=== PATIENT | female | born 1995 | race African-American/Black ===

== ENCOUNTER 2019-01-28 16:23 | Inpatient (IN) ==
[2019-01-28] MEDS ORDERED: SODIUM CHLORIDE 0.9% 1000ML 2,000 ML IV ONE (17:14)
[2019-01-28 17:27] LABS: Basophils # (auto) 0.03 K/uL (0-0.2); Basophils % (auto) 0.5 %; Eosinophils # (auto) 0.13 K/uL (0-0.5); Eosinophils % (auto) 2.1 %; Hematocrit (blood only) 34.2 % (37-47); Hemoglobin 11.1 g/dL (12.0-16.0); Immature Granulocytes # (auto) 0.01 K/uL (0.00-0.02); Immature Granulocytes % (auto) 0.2 %; Lymphocytes # (auto) 1.87 K/uL (1.2-3.4); Lymphocytes % (auto) 29.5 %; Mean Corpuscular Hemoglobin 26.4 pg (25-34); Mean Corpuscular Hgb Conc 32.5 g/dL (32-36); Mean Corpuscular Volume 81.2 fL (80-100); Mean Platelet Volume 11.1 fL (7.4-10.4); Monocytes # (auto) 0.41 K/uL (0.11-0.59); Monocytes % (auto) 6.5 %; Neutrophils # (auto) 3.88 K/uL (1.4-6.5); Neutrophils % (auto) 61.2 %; Platelet Count 283 K/uL (130-400); RDW Coefficient of Variation 13.2 % (11.5-14.5); RDW Standard Deviation 39.8 fL (36.4-46.3); Red Blood Count 4.21 M/uL (4.2-5.4); White Blood Count 6.33 K/uL (4.8-10.8)
[2019-01-28] MEDS ORDERED: LORazepam 2 MG/4 ML VIAL ONE (17:39)
--- NOTE | 2019-01-28 17:41 | XRay Report ---
XR chest 1V portable HISTORY: 23 years-old Female Chest Pain acute atypical chest pain COMPARISON: Chest radiograph 12/30/2018 TECHNIQUE: Portable AP view of the chest FINDINGS: Cardiomediastinal and hilar silhouettes are within normal limits. Blunting of the right costophrenic angle may be secondary to atelectasis. No pneumothorax, pleural effusion, focal airspace consolidatio n or overt pulmonary edema. Bones of the chest appear grossly intact. IMPRESSION: No acute process. The above report was generated using voice recognition software. It may contain grammatical, syntax o r spelling errors. Electronically signed by: Hector Rios M.D. 01/28/2019 5:40 PM
[2019-01-28] MEDS ORDERED: levETIRAcetam 1,500 MG in DEXTROSE 5% 100 ML IV STA (17:42)
[2019-01-28 17:46] LABS: Pregnancy Test, Serum Negative (Negative)
[2019-01-28 17:51] LABS: Alanine Aminotransferase 16 U/L (12-78); Albumin Level 3.6 gm/dl (3.4-5.0); Aspartate Aminotransferase 10 U/L (15-37); BUN Creatinine Ratio 15.3 (10-20); Bilirubin Direct < 0.1 mg/dl (0-0.2); Blood Urea Nitrogen 10 mg/dl (7-18); Carbon Dioxide 29 mmol/L (21-32); Chloride 107 mmol/L (98-107); Est GFR (Non-African American) 125.1; Glucose 88 mg/dl (70-99); Lipase 86 U/L (73-393); Magnesium 1.9 mg/dl (1.8-2.4); Potassium 4.2 mmol/L (3.5-5.1); Sodium 139 mmol/L (136-145)
[2019-01-28 18:00] LABS: Albumin Globulin Ratio 0.9 (0.9-2); Alkaline Phosphatase 76 U/L (45-117); Bilirubin,Total 0.3 mg/dl (0.2-1); Globulin 3.8 gm/dl (2.5-4.0); Phosphorus 3.7 mg/dl (2.5-4.9); Thyroid Stimulating Hormone 0.876 uIu/ml (0.300-4.500); Total Protein 7.4 gm/dl (6.4-8.2); Troponin I < 0.015 ng/ml (0-0.045)
--- NOTE | 2019-01-28 19:19 | Emergency Department Note ---
Entered by Elvi Jaime acting as a scribe for Jack Graham MD History of Present Illness General Chief complaint: Seizure Stated complaint: SEIZURE Time Seen by Provider: 01/28/19 16:54 Source: patient and EMS History of Present Illness Onset (ago): minute(s) (prior to arrival) Location: head (general) Pain Consistency: + other (episode ) Maximum Pain Intensity: 0 Quality: + other (seizure) Associated symptoms: + denies other symptoms (diarrhea, lost weight) and + cough; no diaphoresis and no fever/chills The patient is a 23 year old female who presents to the Emergency Room with complaints of an episode of a seizure that occurred just prior to arrival. She reports feeling an aura while crossing the street near her apartment, but notes the seizure occurred inside her apartment. EMS reports the seizure lasted approximately 4-5 minutes according to a witness. The patient reports she was diagnosed with epilepsy last year. She reports a recent change in her medication from Keppra to oxcarbazepine a few weeks ago. The patient states she would originally experience 1-2 seizures per month, but notes that number has increased to 1 seizure per week since starting the new medication. She notes she has not spoken to her neurologist Dr. Forrest about the increase in frequency of her seizures. She notes she has an appointment later this month. The patient reports a cough. She denies a fever, diarrhea, sweating at night, and lost weight. She denies any sick contacts. She notes her last normal menstrual cycle occurred a little over a month ago. The patient reports a history of TB. She states she is from [facility]. *Patient had a negative CT head and negative chest x-ray on 12/30/2018. Home Medications Home Medications Medication Instructions Recorded Confirmed Type folic acid 1 mg PO BID 12/30/18 12/30/18 History oxcarbazepine See Rx Instructions .ROUTE .COMPLEX 12/30/18 12/30/18 History Allergies Allergy/AdvReac Type Severity Reaction Status Date / Time No Known Allergies Allergy Verified 12/30/18 18:37 Past Med/Surg History Medical History Asthma Seizures Depression Exposure to TB Surgical History No pertinent past surgical history Family History Other No pertinent family history Social History Preferred Language: Estonian Communication Ability: Effective Looper Operator Required: No Beliefs That Will Affect Care: None Current Living Situation: Alone Current Living Situation Comment: student/apartment Feels Safe at Home: Yes Safety Concerns: Feels Safe At This Time Smoking Status: Never smoker Hx Alcohol Use: No Hx Substance Use: No Review of Systems See HPI for pertinent positives & negatives. and A total of 10 systems reviewed and were otherwise negative Physical Exam Vital Signs Vital Signs - 24 hr 01/28/19 16:28 01/28/19 16:34 01/28/19 16:35 Temperature 36.7 C Temperature Source Oral Sepsis Recent Fever Within 48 Hours No Sepsis Action Taken by Nursing No Action Required Pulse Rate 75 73 74 Pulse Rate from SpO2 Sensor 75 73 Pulse Rhythm Regular Pulse Strength Normal Respiratory Rate 28 H 16 22 Respiratory Effort / Characteristics Non-Labored Respiratory Depth Normal Respiratory Pattern Regular Blood Pressure 132/93 132/93 Blood Pressure Mean 106 106 Blood Pressure Position Lying Pulse Oximetry 100 100 100 Oxygen Delivery Method Room Air 01/28/19 16:40 01/28/19 16:50 01/28/19 17:01 Temperature Temperature Source Sepsis Recent Fever Within 48 Hours Sepsis Action Taken by Nursing Pulse Rate 73 74 74 Pulse Rate from SpO2 Sensor 72 74 Pulse Rhythm Pulse Strength Respiratory Rate 17 19 16 Respiratory Effort / Characteristics Respiratory Depth Respiratory Pattern Blood Pressure Blood Pressure Mean Blood Pressure Position Pulse Oximetry 100 100 Oxygen Delivery Method 01/28/19 17:10 01/28/19 17:20 01/28/19 17:31 Temperature Temperature Source Sepsis Recent Fever Within 48 Hours Sepsis Action Taken by Nursing Pulse Rate 84 71 74 Pulse Rate from SpO2 Sensor Pulse Rhythm Pulse Strength Respiratory Rate 20 14 15 Respiratory Effort / Characteristics Respiratory Depth Respiratory Pattern Blood Pressure Blood Pressure Mean Blood Pressure Position Pulse Oximetry Oxygen Delivery Method 01/28/19 17:40 01/28/19 17:50 01/28/19 18:01 Temperature Temperature Source Sepsis Recent Fever Within 48 Hours Sepsis Action Taken by Nursing Pulse Rate 72 72 71 Pulse Rate from SpO2 Sensor Pulse Rhythm Pulse Strength Respiratory Rate 17 14 13 Respiratory Effort / Characteristics Respiratory Depth Respiratory Pattern Blood Pressure Blood Pressure Mean Blood Pressure Position Pulse Oximetry Oxygen Delivery Method 01/28/19 18:10 01/28/19 18:20 01/28/19 18:31 Temperature Temperature Source Sepsis Recent Fever Within 48 Hours Sepsis Action Taken by Nursing Pulse Rate 74 73 66 Pulse Rate from SpO2 Sensor 73 73 67 Pulse Rhythm Pulse Strength Respiratory Rate 13 14 12 Respiratory Effort / Characteristics Respiratory Depth Respiratory Pattern Blood Pressure Blood Pressure Mean Blood Pressure Position Pulse Oximetry 100 100 100 Oxygen Delivery Method GENERAL: Drowsy but alert and oriented, fatigued-appearing, in no distress HENT: Normocephalic, atraumatic. Oropharynx with dry mucous membranes and otherwise unremarkable. EYES: Normal conjunctiva. Sclera non-icteric. EOMI. No nystamgus. PEARRL. NECK: Supple. No nuchal rigidity. FROM. No JVD. RESPIRATORY: CTAB. CARDIAC: Regular rate, normal rhythm. Extremities warm and well perfused. Pulses equal. ABDOMEN: Soft, non-distended. No tenderness to palpation. No rebound or guarding. No masses. RECTAL: Deferred. MUSCULOSKELETAL: Chest examination reveals no tenderness. The back is sym metrical on inspection without obvious abnormality. There is no CVA tenderness to palpation. No joint edema. LOWER EXTREMITIES: Calves are equal size bilaterally and non-tender. No edema. No discoloration. NEURO: Normal sensorium. No sensory or motor deficits noted. No clonus. normal reflexes. Cerebellar function intact, including finger to nose, alternating palms, heel to vivas. 5/5 strength and SILT x4 extremities. SKIN: No rash or jaundice noted. Course 1700: Past medical records reviewed. The patient was evaluated in room A09. A complete history and physical exam was performed. 1750: The patient had another seizure. 1800: Upon reevaluation, I discussed findings and results with the patient. She verbalized agreement of the treatment plan. I spoke with Dr. Marquez of the [facility] Hospitalist Service. The patient will be evaluated for further management and care. Administered Medications Lactated Ringer's (Lr) 1,000 mls @ 50 mls/hr IV .Q20H TERRANCE Stop: 02/27/19 19:58 Last Admin: 01/28/19 20:12 Dose: 50 mls/hr Documented by: [id number] Discontinued Medications Sodium Chloride (Nss 1000ml) 2,000 mls @ 999 mls/hr IV .Q2H1M ONE Stop: 01/28/19 19:14 Last Infusion: 01/28/19 20:48 Dose: 0 mls/hr Documented by: [id number] Admin: 01/28/19 18:15 Dose: 999 mls/hr Documented by: [id number] Levetiracetam 1,500 mg/ (Dextrose) 115 mls @ 440 mls/hr IV NOW STA Stop: 01/28/19 17:56 Last Infusion: 01/28/19 18:32 Dose: 0 mls/hr Documented by: [id number] Admin: 01/28/19 18:15 Dose: 440 mls/hr Documented by: [id number] Lorazepam (Ativan) Confirm Administered Dose 2 mg .ROUTE .STK-MED ONE Stop: 01/28/19 17:40 Last Admin: 01/28/19 17:56 Dose: 1 mg Documented by: [id number] Medical Decision Making Differential Diagnosis Differential diagnosis includes etiologies such as infection, hypoglycemia, electrolyte abnormalities, cardiac sources, intracerebral event, trauma, toxicologic, neurologic, as well as others were entertained. Medical Records Attestation: I reviewed the patient's medical records. Home Medications Current Medication List: was personally reviewed by me Laboratory Data Attestation: I reviewed the patient's lab results. Result diagrams: 01/28/19 17:04 01/28/19 17:04 Lab Results 01/28/19 01/28/19 01/28/19 Range/Units 17:04 17:04 17:04 WBC 6.33 (4.8-10.8) K/uL RBC 4.21 (4.2-5.4) M/uL Hgb 11.1 L (12.0-16.0) g/dL Hct 34.2 L (37-47) % MCV 81.2 (80-100) fL MCH 26.4 (25-34) pg MCHC 32.5 (32-36) g/dL RDW Std Deviation 39.8 (36.4-46.3) fL RDW Coeff of [place] 13.2 (11.5-14.5) % Plt Count 283 (130-400) K/uL MPV 11.1 H (7.4-10.4) fL Immature Gran % (Auto) 0.2 % Neut % (Auto) 61.2 % Lymph % (Auto) 29.5 % [place] % (Auto) 6.5 % Eos % (Auto) 2.1 % Baso % (Auto) 0.5 % Immature Gran # (Auto) 0.01 (0.00-0.02) K/uL Neut # (Auto) 3.88 (1.4-6.5) K/uL Lymph # (Auto) 1.87 (1.2-3.4) K/uL [place] # (Auto) 0.41 (0.11-0.59) K/uL Eos # (Auto) 0.13 (0-0.5) K/uL Baso # (Auto) 0.03 (0-0.2) K/uL Sodium 139 (136-145) mmol/L Potassium 4.2 (3.5-5.1) mmol/L Chloride 107 (98-107) mmol/L Carbon Dioxide 29 (21-32) mmol/L Anion Gap 3.0 (3-11) BUN 10 (7-18) mg/dl Creatinine 0.65 (0.6-1.2) mg/dl Est Cr Clr Drug Dosing 138.0 ml/min Est GFR ( Amer) 145.0 Est GFR (Non-Af Amer) 125.1 BUN/Creatinine Ratio 15.3 (10-20) Glucose 88 (70-99) mg/dl Calcium 9.0 (8.5-10.1) mg/dl Phosphorus 3.7 (2.5-4.9) mg/dl Magnesium 1.9 (1.8-2.4) mg/dl Total Bilirubin 0.3 (0.2-1) mg/dl Direct Bilirubin < 0.1 (0-0.2) mg/dl AST 10 L (15-37) U/L ALT 16 (12-78) U/L Alkaline Phosphatase 76 (45-117) U/L Ammonia (11-32) umol/L Troponin I < 0.015 (0-0.045) ng/ml Total Protein 7.4 (6.4-8.2) gm/dl Albumin 3.6 (3.4-5.0) gm/dl Globulin 3.8 (2.5-4.0) gm/dl Albumin/Globulin Ratio 0.9 (0.9-2) Lipase 86 (73-393) U/L TSH 0.876 (0.300-4.500) uIu/ml HCG, Qual Negative (Negative) 01/28/19 Range/Units 17:54 WBC (4.8-10.8) K/uL RBC (4.2-5.4) M/uL Hgb (12.0-16.0) g/dL Hct (37-47) % MCV (80-100) fL MCH (25-34) pg MCHC (32-36) g/dL RDW Std Deviation (36.4-46.3) fL RDW Coeff of [place] (11.5-14.5) % Plt Count (130-400) K/uL MPV (7.4-10.4) fL Immature Gran % (Auto) % Neut % (Auto) % Lymph % (Auto) % [place] % (Auto) % Eos % (Auto) % Baso % (Auto) % Immature Gran # (Auto) (0.00-0.02) K/uL Neut # (Auto) (1.4-6.5) K/uL Lymph # (Auto) (1.2-3.4) K/uL [place] # (Auto) (0.11-0.59) K/uL Eos # (Auto) (0-0.5) K/uL Baso # (Auto) (0-0.2) K/uL Sodium (136-145) mmol/L Potassium (3.5-5.1) mmol/L Chloride (98-107) mmol/L Carbon Dioxide (21-32) mmol/L Anion Gap (3-11) BUN (7-18) mg/dl Creatinine (0.6-1.2) mg/dl Est Cr Clr Drug Dosing ml/min Est GFR ( Amer) Est GFR (Non-Af Amer) BUN/Creatinine Ratio (10-20) Glucose (70-99) mg/dl Calcium (8.5-10.1) mg/dl Phosphorus (2.5-4.9) mg/dl Magnesium (1.8-2.4) mg/dl Total Bilirubin (0.2-1) mg/dl Direct Bilirubin (0-0.2) mg/dl AST (15-37) U/L ALT (12-78) U/L Alkaline Phosphatase (45-117) U/L Ammonia 30.0 (11-32) umol/L Troponin I (0-0.045) ng/ml Total Protein (6.4-8.2) gm/dl Albumin (3.4-5.0) gm/dl Globulin (2.5-4.0) gm/dl Albumin/Globulin Ratio (0.9-2) Lipase (73-393) U/L TSH (0.300-4.500) uIu/ml HCG, Qual (Negative) Imaging Data Radiologist's Impression: Radiology results as stated below per my review and the radiologist's interpretation: XR chest 1V portable HISTORY: 23 years-old Female Chest Pain acute atypical chest pain COMPARISON: Chest radiograph 12/30/2018 TECHNIQUE: Portable AP view of the chest FINDINGS: Cardiomediastinal and hilar silhouettes are within normal limits. Blunting of the right costophrenic angle may be secondary to atelectasis. No pneumothorax, pleural effusion, focal airspace consolidation or overt pulmonary edema. Bones of the chest appear grossly intact. IMPRESSION: No acute process. The above report was generated using voice recognition software. It may contain grammatical, syntax or spelling errors. Electronically signed by: Hector Rios M.D. 01/28/2019 5:40 PM ECG Data Attestation: I personally reviewed and interpreted this ECG as follows: Indication: + other (seizure) Rate (beats per minute): 72 Rhythm: + normal sinus ECG [place]: + Normal ECG ST segments: no ST depression and no ST elevation ECG Findings: + Other (QTC 429) Blood Pressure Blood Pressure Findings: Elevated blood pressure Blood Pressure Disposition: further management by hospitalist MDM Narrative The patient is a pleasant 23-year-old woman from [facility], international student, with a past medical history of seizures diagnosed 1 year ago followed by [facility] neurology, Dr. Lacy, currently on Trileptal who presents emergency department with seizure episode today in the setting of having increasing frequency of seizures over the past month per hpi. The patient reports increase in seizures correlate to switching her medications from Keppra and Lamictal to Trileptal. She reports stopping Keppra and Lamictal abruptuly while initiating Trileptal. However, review of patient's November neurology visit does describe a plan to maintain Keppra until the patient is therapeutic on Trileptal which would take approximately a month and then wean Keppra going forward. Thus, it certainly possible that the patient's increasing for seizure frequency could be related to this. In the emergency department the patient did have a repeat seizure and thus was given Ativan followed by load of Keppra. Lab work was unremarkable. WBC and platelets within normal limits. H/H 11.1/34.2 similar to prior prior values. Chemistry without acidosis. Electrolytes unremarkable. Troponin negative. EKG without overt acute ischemia. Given the patient had a negative CT of her head on her prior ED visit this month no indica tion for repeat brain imaging at this time. Considering the patient's recurrent seizures reasonable to admit the patient for further management. Patient is agreeable with this. Case was discussed with Dr. Marquez, [facility] hospitalist, who evaluate the patient for admission. Impression & Plan Recurrent seizures, On antiepileptic therapy Critical Care Time Critical Care Time: Yes Total Critical Care Time: 45 I have personally spent greater than 45 minutes of critical care time in the direct management of this patient. This includes bedside care, interpretation of diagnostic studies, and testing, discussion with consultants, patient, and family members, and other required patient management activities. This 45 minutes is in excess of all separately billable procedures. Discharge Plan Visit Data *Final* Discharge Date/Time: 01/28/19 19:58 Chief Complaint: Seizure Stated Complaint: SEIZURE ED Provider: Jack Graham Discharge Problem: Recurrent seizures, On antiepileptic therapy Patient Disposition: Admitted As Inpatient Discharge Instructions Interventions: ED Discharge Assessment Last Done: 01/28/19 19:58 The scribe's documentation has been prepared under my direction and personally reviewed by me in its entirety. I confirm that the note above accurately reflects all work, treatment, procedures, and medical decision making performed by me.
[2019-01-28] MEDS ORDERED: LORazepam 1 MG/2 ML VIAL IV PRN (19:59)
[2019-01-28] MEDS ORDERED: LACTATED RINGER'S 1,000 ML IV SCH (19:59)
[2019-01-28] MEDS ORDERED: ALBUT/IPRATROP 3MG/0.5MG NEB 3 ML VIAL NEB PRN (19:59)
[2019-01-28] MEDS ORDERED: ONDANSETRON INJ 2 MG/ML 2 ML VIAL IV PRN (19:59)
--- NOTE | 2019-01-28 20:05 | History & Physical Report ---
Date of Service January 28, 2019 Assessment & Plan (1) Seizures: As per HPI, may have stopped her Keppra prematurely as she was meant to transition to oxcarbazepine. Also a little interesting that it appears her last fill date was 12/19/2018. Will need to confirm with Paigemaryanne tomorrow. - Continue Keppra - Loaded with 1,500 mg in the ED - Will give Keppra 1,000mg IV BID - Ativan PRN - Seizure precauctions - Neurology consulted - Saw Dr. Hurley in the office last month (2) Depression: Per notes, was having issues with depression and passive SI in 10/2018, possibly due to seizure medications. - When the patient is more awake/arousable, will discuss whether this is contributing to her medication adherence. (3) Asthma: Breathing comfortably without wheezes on exam. - DuoNebs PRN (4) DVT prophylaxis: SCDs - Low DVT risk per admission calculator History of Present Illness Primary Care Provider: [facility] 23yo F w/ hx of seizure d/o, asthma, and depression who presents after having a witnessed tonic-clonic seizure at her apartment. History is entirely from the chart as the patient is lethargic and can only state her name and deny any pain. She otherwise falls back asleep or just looks at me. Per prior notes, Ms. Brown recently returned to [facility] from her home in [facility]. She was seen in the ED in 10/2018 for feelings of depression and passive SI. She had spoke with her insurance company who recommended going to the ED. In the ED, she was recommended to decrease her Keppra from 3000 mg PO daily to a lower dose (though on discharge it looks like it as listed as 1500 mg PO BID) and add lamotrigine 25 mg PO BID. She was given a 30-day supply and two refills. She represented in 11/2018 (about 2 weeks later) reporting that she was running out of her lamotrigine and needed a refill. She was shown that she had multiple refills left, and this was transferred to the [facility]. Per ED notes, she saw Dr. Hurley in 11/2018 with the plan of switching from Keppra & lamotrigine to oxcarbazepine; however, it appears she may have inadvertantly stopped her Keppra too early. In the ED, she had a repeat seizure and was given another dose of Ativan and loaded with Keppra. Allergies Allergy/AdvReac Type Severity Reaction Status Date / Time No Known Allergies Allergy Verified 12/30/18 18:37 Home Medications Home Medications Medication Instructions Recorded Confirmed Type folic acid 1 mg PO BID 12/30/18 12/30/18 History oxcarbazepine See Rx Instructions .ROUTE .COMPLEX 12/30/18 12/30/18 History Past Med/Surg History Medical History Asthma Seizures Depression Exposure to TB Surgical History No pertinent past surgical history Family History Other No pertinent family history Social History Preferred Language: Amharic Feels Safe at Home: Yes Smoking Status: Never smoker Review of Systems Review of Systems: Unobtainable due to cognitive status Physical Exam Constitutional: + acute distress, + ill appearing and + lethargic Eyes: EOM intact bilaterally; no conjunctival abnormality ENMT: external ear and nose normal, oropharynx normal Neck: trachea midline, no thyromegaly normal visual inspection Respiratory: normal respiratory effort, lungs clear to auscultation no respiratory distress Cardiovascular: RRR, no murmur, no edema Gastrointestinal (Abdomen): Inspection/Auscultation: abdomen normal to inspection; abdomen not distended Musculoskeletal: no cyanosis or clubbing, extremities motor strength 5/5 Skin: no rashes, warm and dry Neurologic: moves all extremities; + not awake Psychiatric: Orientation: cooperative; + not alert and + not oriented to person Eye Contact: + poor eye contact Results & Data Vital Signs (Past 12 Hours) Vital Signs Temp Pulse Resp BP Pulse Ox 01/28/19 19:41 118/62 01/28/19 19:30 76 14 100 01/28/19 19:20 77 14 100 01/28/19 19:11 73 13 100 01/28/19 19:00 76 16 100 01/28/19 18:50 70 14 100 01/28/19 18:41 70 12 100 01/28/19 18:31 66 12 100 01/28/19 18:20 73 14 100 01/28/19 18:10 74 13 100 01/28/19 18:01 71 13 01/28/19 17:50 72 14 01/28/19 17:40 72 17 01/28/19 17:31 74 15 01/28/19 17:20 71 14 01/28/19 17:10 84 20 01/28/19 17:01 74 16 01/28/19 16:50 74 19 100 01/28/19 16:40 73 17 100 01/28/19 16:35 74 22 100 01/28/19 16:34 36.7 C 73 16 132/93 100 01/28/19 16:28 75 28 H 132/93 100 PG Care Time/CCT Total # of Minutes Spent Total Time Spent with Patient: Total time spent is greater than 50% in coordination of care (as documented) at patient's floor/unit and/or counseling patient:
[2019-01-28 20:16] LABS: Appearance Urine Cloudy (Clear); Bacteria Urine Automated Negative (Negative); Bilirubin Urine Negative (Negative); Blood Urine Negative (Negative); Cast Urine Automated 0 /lpf (0-5); Color Urine Yellow; Epithelial Cell Urine Auto >30 /lpf (0-5); Glucose Urine UA Negative (Negative); Ketones Urine Negative (Negative); Leukocyte Esterase Urine Negative (Negative); Nitrite Urine Negative (Negative); Protein Urine Negative (Negative); RBC Urine Automated 0-4 /hpf (0-4); Specific Gravity Urine 1.026 (1.000-1.030); Urobilinogen Urine Negative (Negative); pH Urine 7.5 (4.5-7.5)
[2019-01-29 04:36] LABS: Hematocrit (blood only) 32.9 % (37-47); Hemoglobin 10.3 g/dL (12.0-16.0); Mean Corpuscular Hemoglobin 25.2 pg (25-34); Mean Corpuscular Hgb Conc 31.3 g/dL (32-36); Mean Corpuscular Volume 80.6 fL (80-100); Mean Platelet Volume 11.1 fL (7.4-10.4); Platelet Count 241 K/uL (130-400); RDW Standard Deviation 38.6 fL (36.4-46.3); Red Blood Count 4.08 M/uL (4.2-5.4); White Blood Count 4.65 K/uL (4.8-10.8)
[2019-01-29 04:52] LABS: Alanine Aminotransferase 13 U/L (12-78); Albumin Level 3.1 gm/dl (3.4-5.0); Aspartate Aminotransferase 10 U/L (15-37); BUN Creatinine Ratio 11.2 (10-20); Blood Urea Nitrogen 6 mg/dl (7-18); Calcium 8.4 mg/dl (8.5-10.1); Carbon Dioxide 24 mmol/L (21-32); Chloride 109 mmol/L (98-107); Creatinine Clr Calc Pharmacy 153.3 ml/min; Est GFR (African American) > 150.0; Est GFR (Non-African American) 129.9; Glucose 78 mg/dl (70-99); Magnesium 1.7 mg/dl (1.8-2.4); Potassium 3.6 mmol/L (3.5-5.1); Sodium 140 mmol/L (136-145)
[2019-01-29 04:55] LABS: Albumin Globulin Ratio 0.9 (0.9-2); Alkaline Phosphatase 69 U/L (45-117); Bilirubin,Total 0.4 mg/dl (0.2-1); Globulin 3.3 gm/dl (2.5-4.0); Phosphorus 3.3 mg/dl (2.5-4.9); Total Protein 6.4 gm/dl (6.4-8.2)
[2019-01-29] MEDS: MAGNESIUM SULFATE / D5W 1 GM/100 ML BAG IV SCH ×2 (07:43→08:49)
--- NOTE | 2019-01-29 09:17 | Neurology Consultation ---
Date of Consultation January 29, 2019 Assessment & Plan (1) Seizures: (2) Seizure-like activity: A 23 year old woman admitted with spells of seizure like activity on Trileptal 600 mg BID although concern for possible non compliance. Semiology of events concerning for nonepileptic episodic events ("the world is closing in", shortness of breath, long duration, preserved consciousness during some of the events). I reviewed her recent routine EEG performed on 01/25/2019) which was normal. No epileptiform discharges were seen. Recommend she continue home Trileptal for now, 600 mg BID. Stop Keppra due to AE (lethargy, mood changes). Recommend patient follow up with Dr. Forrest for ambulatory EEG or EMU admission for spell capture. History of Present Illness Reason for Consultation: Seizure Attending Physician: Mark Segura MD History of Present Illness A 24 year old woman admitted for seizure. She recently was seen and evaluated by Dr. Forrest in Neurology clinic. She was on Keppra 1500 mg BID but reports she ran out of the script. She reports taking Trileptal but not clear on dose or concern for compliance. States she has been having multiple symptoms including cough, chest pain, weakness, and forgetfulness. She describes to seizure type including one where she will not lose conciousness and both arms will shake and one where she has an extended aura involving her right arm which then evolves to being "swallowed in darkness" and she loses concioussness and is amnestic to the event but has incontinence and tongue biting. Occurs whenever but more in morning or when falling asleep. She reports stress at school. Lives with room mates. Per Dr. 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 Beginning in October of 2016 she began having spells where she felt like she had low blood she would feel a funny feeling of weakness in the right arm and then both legs would feel weak like she was falling. This would last approximately 2 minutes. It was recurrence over time in 2018 she had a period of time in which she was somewhat sleep deprived she was laying in her bed felt her right arm stiffened up then she could in yell or here her own voice. Everything became dark. She lost consciousness bit her tongue and was confused thereafter no one was there to witness the episode. She was seen in the emergency room I believe at [place] and then discharged an MRI and an EEG were performed the patient's understanding is that these were normal and she was started on Keppra by a neurologist from the [facility] this dose was gradually increased until she was about on 3000 mg a day she indicates that she had many generalized seizures. And many of partial complex seizure. The the partial complex seizures were occurring approximately 1 time a month. Her last noted spell was in I believe September where she was awake and her arms and legs turned in lasted 2 minutes. In October she was contacted by [employer] and through dose a survey was found to have on healthy thoughts she felt inadequate and passively suicidal but not actively suicidal she was not hallucinating and she felt mildly depressed she had never had these feelings previously prior to Keppra she did feel have grew a grief reaction when her mother in approximately 2013. She went to the emergency room and Dr. high barroso recommended reduction in the dose of Keppra and the addition of Lamictal. She took this combination for about 2-3 weeks and was having spasms in her arm either right or left that resolved with discontinuing it. She resumed the old dose of Keppra. She notes ongoing issues with memory. When the patient was seen in [facility] Emergency Room her labs were remarkable only for a white count of 4 and otherwise noncontributory She has a history of asthma no history of kidney stones no history of head injury unremarkable milestones no history of meningitis or encephalitis no family history of seizure. Allergies Allergy/AdvReac Type Severity Reaction Status Date / Time No Known Allergies Allergy Verified 12/30/18 18:37 Home Medications Home Medications Medication Instructions Recorded Confirmed Type folic acid 1 mg PO BID 12/30/18 12/30/18 History oxcarbazepine See Rx Instructions .ROUTE .COMPLEX 12/30/18 12/30/18 History oxcarbazepine 600 mg PO BID #60 tab 01/29/19 Rx Patient History Medical History Asthma Seizures Depression Exposure to TB Surgical History No pertinent past surgical history Family History Other No pertinent family history Social History Preferred Language: Turkish Communication Ability: Effective Edi Consultant Required: No Beliefs That Will Affect Care: None Current Living Situation: Alone Current Living Situation Comment: student/apartment Feels Safe at Home: Yes Safety Concerns: Feels Safe At This Time Smoking Status: Never smoker Hx Alcohol Use: No Hx Substance Use: No Physical Exam Physical Exam: EXAM: Constitutional: appear stated age, no distress Head and Face: normocephalic and atraumatic Eyes: normal lids, normal conjunctiva Neck: supple Respiratory: normal effort Cardiovascular: ormal pulses Abdomen: non distended Skin: no rashes, lesions, or ulcers noted Psychiatric: depressed appearing, poor eye contact NEUROLOGIC EXAMINATION: Appearance: no acute distress Orientation: awake, alert and oriented x 3 Mental Status: alert Memory: Poor Attention: decreased Knowledge: Poor Language: no aphasia Speech: soft Cranial Nerves: CN 2 - no visual defect on confrontation and pupils round, equal, reactive to light CN 3, 4, 6 - extra-ocular movements intact and no nystagmus CN 5 - facial sensation intact CN 7 - no facial asymmetry CN 8 - intact hearing CN 9, 10 - palate symmetric CN 11 - good shoulder shrug CN 12 - tongue midline, no abrasion on tongue Gait: deferred Coordination: no ataxia with finger to nose testing on left, no tremor Sensory: intact and symmetric to light touch Muscle Tone: normal Muscle exam: 5/5 throughout Reflexes: Brisk at the knees, toes down going Results & Data Vital Signs (Past 12 Hours) Vital Signs Temp Pulse Pulse Resp BP BP Pulse Ox 01/29/19 07:40 36.3 C L 101 H 18 127/84 96 01/29/19 07:35 91 H 01/29/19 04:00 36.5 C 80 13 101/52 L 97 01/29/19 03:50 78 16 01/29/19 03:40 80 16 01/29/19 03:30 81 16 01/29/19 03:20 77 15 01/29/19 03:10 81 15 01/29/19 03:01 81 15 112/50 L 01/29/19 03:00 82 15 01/29/19 02:50 76 15 01/29/19 02:40 79 15 01/29/19 02:30 78 15 01/29/19 02:20 81 17 01/29/19 02:10 98 H 15 01/29/19 02:00 84 17 112/58 L 01/29/19 01:50 EST 81 16 01/29/19 01:40 EST 77 16 01/29/19 01:30 EST 84 18 01/29/19 01:20 EST 83 17 01/29/19 01:10 EST 83 17 01/29/19 01:00 EST 79 17 113/60 01/29/19 00:50 82 17 01/29/19 00:40 79 20 01/29/19 00:30 74 17 01/29/19 00:20 82 15 01/29/19 00:11 77 15 128/62 01/29/19 00:10 84 18 01/29/19 00:00 36.7 C 84 16 126/62 97 01/28/19 23:50 81 16 01/28/19 23:40 84 17 01/28/19 23:30 81 16 01/28/19 23:20 76 16 01/28/19 23:10 80 16 01/28/19 23:00 85 16 01/28/19 22:50 78 16 01/28/19 22:40 75 16 01/28/19 22:30 77 16 01/28/19 22:[address] Head non contrast: No acute intracranial abnormality.
--- NOTE | 2019-01-29 11:44 | Hospitalist Progress Note ---
Date of Service January 29, 2019 Assessment & Plan (1) Seizures: Per patient, she stopped her Keppra prematurely as she was meant to transition to oxcarbazepine. - I called [facility] pharmacy on 01/29 - She last picked up her oxcarbazepine on 12/19 and never filled her refill of Keppra that was sent in on 01/17. She does admit that she occasionally skips her morning dose of oxcarbazepine because it makes her tired and gives her hand cramps. - Continue Keppra 1,000mg IV BID - Ativan PRN - Seizure precautions - Neurology consulted - Will discuss with Dr. Strauss today (2) Depression: Per notes, was having issues with depression and passive SI in 10/2018, possibly due to seizure medications. - She reports no further passive SI and has improved mood off her Keppra. (3) Asthma: Breathing comfortably without wheezes on exam. Denies any shortness of breath today. - DuoNebs PRN (4) DVT prophylaxis: SCDs - Low DVT risk per admission calculator Subjective Doing much better today. Awake and alert and talking. No major issues. Reports no fevers/chills, chest pain, shortness of breath, abdominal pain, nausea, or vomiting. Physical Exam Constitutional: well nourished; no acute distress Eyes: EOM intact bilaterally; no conjunctival abnormality ENMT: external ear and nose normal, oropharynx normal Neck: trachea midline, no thyromegaly normal visual inspection Respiratory: normal respiratory effort, lungs clear to auscultation no respiratory distress Cardiovascular: RRR, no murmur, no edema Gastrointestinal (Abdomen): Inspection/Auscultation: abdomen normal to inspection; abdomen not distended Musculoskeletal: no cyanosis or clubbing, extremities motor strength 5/5 Skin: no rashes, warm and dry Neurologic: moves all extremities and awake Psychiatric: Orientation: alert, oriented to person and cooperative Results & Data Vital Signs (Past 12 Hours) Vital Signs Temp Pulse Pulse Resp BP BP Pulse Ox 01/29/19 07:40 36.3 C L 101 H 18 127/84 96 01/29/19 07:35 91 H 01/29/19 04:00 36.5 C 80 13 101/52 L 97 01/29/19 03:50 78 16 11/03/19 03:40 80 16 01/29/19 03:30 81 16 01/29/19 03:20 77 15 01/29/19 03:10 81 15 01/29/19 03:01 81 15 112/50 L 01/29/19 03:00 82 15 01/29/19 02:50 76 15 01/29/19 02:40 79 15 01/29/19 02:30 78 15 01/29/19 02:20 81 17 01/29/19 02:10 98 H 15 01/29/19 02:00 84 17 112/58 L 01/29/19 01:50 EST 81 16 01/29/19 01:40 EST 77 16 01/29/19 01:30 EST 84 18 01/29/19 01:20 EST 83 17 01/29/19 01:10 EST 83 17 01/29/19 01:00 EST 79 17 113/60 01/29/19 00:50 82 17 01/29/19 00:40 79 20 PG Care Time/CCT Total # of Minutes Spent Total Time Spent with Patient: Total time spent is greater than 50% in coordination of care (as documented) at patient's floor/unit and/or counseling patient:
--- NOTE | 2019-01-29 13:07 | Discharge Summary ---
Date of Service January 29, 2019 Admission HPI Per Admitting Provider 23yo F w/ hx of seizure d/o, asthma, and depression who presents after having a witnessed tonic-clonic seizure at her apartment. History is entirely from the chart as the patient is lethargic and can only state her name and deny any pain. She otherwise falls back asleep or just looks at me. Per prior notes, Ms. Brown recently returned to [facility] from her home in [place]. She was seen in the ED in 10/2018 for feelings of depression and passive SI. She had spoke with her insurance company who recommended going to the ED. In the ED, she was recommended to decrease her Keppra from 3000 mg PO daily to a lower dose (though on discharge it looks like it as listed as 1500 mg PO BID) and add lamotrigine 25 mg PO BID. She was given a 30-day supply and two refills. She represented in 11/2018 (about 2 weeks later) reporting that she was running out of her lamotrigine and needed a refill. She was shown that she had multiple refills left, and this was transferred to the [facility]. Per ED notes, she saw Dr. Hurley in 11/2018 with the plan of switching from Keppra & lamotrigine to oxcarbazepine; however, it appears she may have inadvertently stopped her Keppra too early. In the ED, she had a repeat seizure and was given another dose of Ativan and loaded with Keppra. Principal Diagnosis Seizure vs. pseudoseizure Discharge Exam Constitutional well nourished; no acute distress Eyes EOM intact bilaterally; no conjunctival abnormality ENMT external ear and nose normal, oropharynx normal Neck trachea midline, no thyromegaly normal visual inspection Respiratory normal respiratory effort, lungs clear to auscultation no respiratory distress Cardiovascular RRR, no murmur, no edema Gastrointestinal (Abdomen) Inspection/Auscultation: abdomen normal to inspection; abdomen not distended Musculoskeletal no cyanosis or clubbing, extremities motor strength 5/5 Skin no rashes, warm and dry Neurologic moves all extremities and awake Psychiatric Orientation: alert, oriented to person and cooperative Eye Contact: + poor eye contact Discharge Data Allergies Allergy/AdvReac Type Severity Reaction Status Date / Time No Known Allergies Allergy Verified 12/30/18 18:37 Consultations 01/28/19 17:52 ED Decision to Admit Stat 01/28/19 19:59 Consult Neurology Routine Hospital Course (1) Seizures: Per patient, she stopped her Keppra prematurely as she was meant to transition to oxcarbazepine. - I called [facility] pharmacy on 01/29 - She last picked up her oxcarbazepine on 12/19 and never filled her refill of Keppra that was sent in on 01/17. She does admit that she occasionally skips her morning dose of oxcarbazepine because it makes her tired and gives her hand cramps. - Neurology consulted - Discuss with Dr. Strauss - Her EEG shows some beta-wave activity, but no epileptiform discharges. Concern for possible pseudoseizure. As above, may also not be taking her medications. Will discharge on only oxcarbazepine. Dr. Forrest's office will reach out to her tomorrow to arrange ambulatory EEG monitoring. Will simplify medical regimen in the context of concern for trouble with adherence. (2) Depression: Per notes, was having issues with depression and passive SI in 10/2018, thought to be due to Keppra. - She reports no further passive SI and has improved mood off her Keppra. (3) Asthma: Breathing comfortably without wheezes on exam. Denies any shortness of breath today. - DuoNebs PRN (4) DVT prophylaxis: SCDs - Low DVT risk per admission calculator Total Time Total Time Spent Total Time Spent (In Minutes): 35 Discharge Plan Discharge Items Patient Disposition: Home - Self-Care Reason For Visit: SEIZURE Discharge Diagnosis: Seizure Activity: Resume your previous activity Non-emergency contact: Primary Care Provider and Neurologist Call non-emergency contact if: your symptoms worsen Follow-up/Referrals: Liliane Forrest MD [Physician] - (Please call Dr. Forrest's office tomorrow.) [facility] [Primary Care Provider] - Diet: Regular Addtl Attending Provider Instructions: You were admitted to the hospital with a possible seizure. The neurologist from [facility] saw you and felt that we need to simplify your medical regimen. The EEG done in the hospital did not show any seizure activity, but can miss it if you're not actively having a seizure when it is done. Dr. Forrest's office should call you tomorrow to set up ambulatory EEG monitoring and also help titrate your meds further. Please continue taking the oxcarbazepine at 600 mg two times per day until you speak with Dr. Forrest. I will give you a school excuse for the week until you are able to speak with her and make sure you are on a safe regimen for you. The script I sent into [facility] today is for 600 mg tablets. So you should only take 1 tablet in the morning and 1 tablet in the evening. Please note, the dose of each tablet is higher than your prior prescription, so you can take fewer pills. Pending Studies at Discharge: No Stand-Alone Forms: [employer] [facility] Happy Hour party supplies & rentals, Work/School Release (Inpt), Smoking Cessation Medications and DC Order Prescriptions: New oxcarbazepine 600 mg tablet 600 mg PO BID Qty: 60 RF: 0 Continued folic acid 1 mg tablet 1 mg PO BID RF: 0 Discontinued oxcarbazepine 300 mg tablet See Rx Instructions .ROUTE .COMPLEX RF: 0 Discharge Orders: Discharge Order (Routine); Ordered 01/29/19 Ordered By: Mark Segura Admission Data Admit Date/Time: 01/28/19 18:40 Attending Provider: Mark Segura Admit Provider: Mark Segura Primary Care Provider: [place] Other Providers: Dexter Marquez ; Sylvester Strauss
[2019-02-02 11:50] LABS: Lamictal(Lamotrigine) <0.5 mcg/mL (4.0-18.0); Levetiracetam Keppra < 1.0 mcg/mL (12.0-46.0)
== END 2019-01-29 14:02 | disposition home or self-care (01) | DRG 101 ==
LOC: ED 16:23 → 1E 18:40 → 2E 01-29 07:20

== ENCOUNTER 2019-09-14 20:48 | Inpatient (IN) ==
[2019-09-14] MEDS ORDERED: FAMOTIDINE 20MG IV PUSH 20 MG/5 ML SYR IV STA (21:41)
[2019-09-14] MEDS ORDERED: SODIUM CHLORIDE 0.9% 1000ML 1,000 ML IV SCH (21:45)
[2019-09-14 22:02] LABS: Appearance Urine Clear (Clear); Bilirubin Urine Negative (Negative); Blood Urine Negative (Negative); Color Urine Yellow; Glucose Urine UA Negative (Negative); Ketones Urine 1+ (Negative); Leukocyte Esterase Urine Negative (Negative); Nitrite Urine Negative (Negative); Protein Urine Negative (Negative); Specific Gravity Urine 1.012 (1.000-1.030); Urobilinogen Urine Negative (Negative)
[2019-09-14 22:10] LABS: Amphetamines+Metham, Urine Neg (Neg); Barbiturates, Urine Neg (Neg); Benzodiazepine, Urine Neg (Neg); Cocaine, Urine Neg (Neg); MDMA (Ecstacy), Urine Neg (Neg); Methadone, Urine Neg (Neg); Opiate, Urine Neg (Neg); Phencyclidine, Urine Neg (Neg)
[2019-09-14 22:34] LABS: Basophils # (auto) 0.03 K/uL (0-0.2); Basophils % (auto) 0.5 %; Eosinophils # (auto) 0.06 K/uL (0-0.5); Hematocrit (blood only) 33.3 % (37-47); Hemoglobin 10.8 g/dL (12.0-16.0); Immature Granulocytes # (auto) 0.01 K/uL (0.00-0.02); Immature Granulocytes % (auto) 0.2 %; Lymphocytes % (auto) 35.4 %; Mean Corpuscular Hemoglobin 25.8 pg (25-34); Mean Corpuscular Hgb Conc 32.4 g/dL (32-36); Mean Corpuscular Volume 79.7 fL (80-100); Monocytes # (auto) 0.38 K/uL (0.11-0.59); Monocytes % (auto) 6.4 %; Neutrophils # (auto) 3.35 K/uL (1.4-6.5); Neutrophils % (auto) 56.5 %; Platelet Count 280 K/uL (130-400); RDW Coefficient of Variation 12.2 % (11.5-14.5); RDW Standard Deviation 35.2 fL (36.4-46.3); Red Blood Count 4.18 M/uL (4.2-5.4); White Blood Count 5.93 K/uL (4.8-10.8)
[2019-09-14 22:40] LABS: Pregnancy Test, Urine Negative (Negative)
[2019-09-14 22:51] LABS: INR 1.1 (0.9-1.1); Prothrombin Time 11.5 Seconds (9.0-12.0)
[2019-09-14 22:55] LABS: Alanine Aminotransferase 14 U/L (12-78); Albumin Level 4.1 gm/dl (3.4-5.0); Aspartate Aminotransferase 10 U/L (15-37); BUN Creatinine Ratio 11.7 (10-20); Blood Urea Nitrogen 8 mg/dl (7-18); Calcium 9.5 mg/dl (8.5-10.1); Carbon Dioxide 22 mmol/L (21-32); Chloride 107 mmol/L (98-107); Creatinine Clr Calc Pharmacy 142.2 ml/min; Est GFR (Non-African American) 125.1; Glucose 79 mg/dl (70-99); Lipase 92 U/L (73-393); Potassium 3.9 mmol/L (3.5-5.1); Sodium 137 mmol/L (136-145)
[2019-09-14 23:04] LABS: Acetaminophen < 2 ug/ml (10-30); Salicylate < 1.7 mg/dl (2.8-20)
[2019-09-14 23:06] LABS: Alkaline Phosphatase 78 U/L (45-117); Bilirubin,Total 0.4 mg/dl (0.2-1); Globulin 4.2 gm/dl (2.5-4.0); Total Protein 8.3 gm/dl (6.4-8.2); Troponin I < 0.015 ng/ml (0-0.045)
--- NOTE | 2019-09-15 00:22 | Emergency Department Note ---
History of Present Illness General Chief complaint: Overdose (Intentional) Stated complaint: OVERDOSE ON MEDICATION Time Seen by Provider: 09/14/19 21:31 History of Present Illness This is a 23-year-old female presenting to the emergency department for evaluation after intentional overdose on 17 tablets of 200 mg ibuprofen and 10 tablets of 600 mg oxcarbazepine. The overdose occurred approximately 1 hour prior to arrival around 7:30 PM this evening. The patient has a history of mental health disease including anxiety and depression. She has felt worsening depression recently, and took the medication "to feel better". The patient has had recent suicidal ideation but denies plan. She denies that this was a suicide attempt tonight. The patient is experiencing epigastric abdominal discomfort. No vomiting or diarrhea. She denies chance of . Patient rates her current discomfort a 04/07. Home Medications Home Medications Medication Instructions Recorded Confirmed Type oxcarbazepine 600 mg PO BID #60 tab 01/29/19 09/14/19 Rx levetiracetam 500 mg tablet 1,500 mg PO BID tab 02/28/19 09/14/19 History ibuprofen [Advil] 400 mg PO Q6H PRN 09/14/19 09/14/19 History Allergies Allergy/AdvReac Type Severity Reaction Status Date / Time No Known Allergies Allergy Verified 09/14/19 21:44 paracetamol AdvReac Unknown sweats, Uncoded 09/14/19 21:44 chills Past Med/Surg History Medical History Asthma Depression Exposure to TB Seizures Surgical History No pertinent past surgical history Social History Preferred Language: Spanish Communication Ability: Effective Supervisor [employer] Required: No Beliefs That Will Affect Care: None Current Living Situation: Alone Current Living Situation Comment: student/apartment Feels Safe at Home: Yes Smoking Status: Never smoker Hx Alcohol Use: No Hx Substance Use: No Review of Systems A total of 10 systems reviewed and were otherwise negative Physical Exam Vital Signs Vital Signs - 24 hr 09/14/19 20:52 09/14/19 21:25 09/14/19 21:58 Temperature 36.8 C Temperature Source Oral Pulse Rate 79 Pulse Rate [Apical] 74 Respiratory Rate 18 18 Respiratory Effort / Characteristics Non-Labored Spontaneous Non-Labored Respiratory Depth Normal Normal Respiratory Pattern Blood Pressure 125/84 Blood Pressure [Right Arm] 130/88 Blood Pressure Mean 97 Blood Pressure Mean [Right Arm] 102 Blood Pressure Position [Right Arm] Pulse Oximetry 100 100 Oxygen Delivery Method Room Air Room Air Room Air Sepsis Recent Fever Within 48 Hours No Sepsis Action Taken by Nursing No Action Required 09/14/19 22:26 09/15/19 00:44 Temperature Temperature Source Pulse Rate Pulse Rate [Apical] 77 71 Respiratory Rate 18 16 Respiratory Effort / Characteristics Non-Labored Spontaneous Respiratory Depth Normal Respiratory Pattern Regular Blood Pressure Blood Pressure [Right Arm] 106/77 129/71 Blood Pressure Mean Blood Pressure Mean [Right Arm] 86 90 Blood Pressure Position [Right Arm] Lying Pulse Oximetry 100 100 Oxygen Delivery Method Room Air Room Air Sepsis Recent Fever Within 48 Hours Sepsis Action Taken by Nursing VITALS: Vitals are noted on the nurse's note and reviewed by myself. Vital signs stable. GENERAL: Well-developed, well-nourished, female, who is in no acute distress and resting comfortably. Patient is cooperative with the examination. HEAD: Normocephalic atraumatic. EARS: External ear normal. External auditory canals clear, tympanic membranes pearly mcgee without erythema or effusion bilaterally. EYES: Pupils equal round and reactive to light and accommodation. Conjunctivae without injection, sclerae without icterus. Extraocular movements intact. NOSE: Patent, turbinates without inflammation or discharge. MOUTH: Mucous membranes moist. Tonsils are not enlarged. Pharynx without er ythema, blood, or exudate. Uvula midline. Airway patent. NECK: Supple without nuchal rigidity. No lymphadenopathy. No thyromegaly. Cervical spine is nontender. HEART: Regular rate and rhythm without murmurs gallops or rubs. LUNGS: Clear to auscultation bilaterally without wheezes, rales or rhonchi. No retractions or accessory muscle use. ABDOMEN: Positive normal bowel sounds x 4. Soft, nontender, without masses or organomegaly. No guarding or rebound tenderness. MUSCULOSKELETAL: No muscle atrophy, erythema, or edema noted. Full range of motion in all extremities. NEURO: Patient was alert and oriented to person place and time. CN II through XII grossly intact. Flat affect noted. SKIN: The skin was without rashes, erythema, edema, or bruising. Capillary refill less than 2 seconds. Course Administered Medications Discontinued Medications Sodium Chloride (Nss 1000ml) 1,000 mls @ 999 mls/hr IV .Q1H1M TERRANCE Stop: 09/14/19 22:45 Last Infusion: 09/14/19 23:37 Dose: 0 mls/hr Documented by: [id number] Admin: 09/14/19 22:26 Dose: 999 mls/hr Documented by: [id number] Famotidine (Pepcid 20mg Iv Push) 20 mg in 5 mls @ 2.5 mls/min IV NOW STA Stop: 09/14/19 21:42 Last Admin: 09/14/19 22:26 Dose: 2.5 mls/min Documented by: [id number] Medical Decision Making Differential Diagnosis differential includes suicide attempt, intentional overdose, toxic ingestions, self-mutilation, suicidal ideation, worsening depression, and others Laboratory Data Result diagrams: 09/14/19 22:11 09/15/19 00:08 Lab Results 09/14/19 09/14/19 09/14/19 Range/Units 09:19 21:30 21:30 WBC (4.8-10.8) K/uL RBC (4.2-5.4) M/uL Hgb (12.0-16.0) g/dL Hct (37-47) % MCV (80-100) fL MCH (25-34) pg MCHC (32-36) g/dL RDW Std Deviation (36.4-46.3) fL RDW Coeff of [place] (11.5-14.5) % Plt Count (130-400) K/uL MPV (7.4-10.4) fL Immature Gran % (Auto) % Neut % (Auto) % Lymph % (Auto) % Isabella % (Auto) % Eos % (Auto) % Baso % (Auto) % Immature Gran # (Auto) (0.00-0.02) K/uL Neut # (Auto) (1.4-6.5) K/uL Lymph # (Auto) (1.2-3.4) K/uL Isabella # (Auto) (0.11-0.59) K/uL Eos # (Auto) (0-0.5) K/uL Baso # (Auto) (0-0.2) K/uL PT 11.5 (9.0-12.0) Seconds INR 1.1 (0.9-1.1) APTT 27.0 (21.0-31.0) Seconds PTT Ratio 1.0 Sodium (136-145) mmol/L Potassium (3.5-5.1) mmol/L Chloride (98-107) mmol/L Carbon Dioxide (21-32) mmol/L Anion Gap (3-11) BUN (7-18) mg/dl Creatinine (0.6-1.2) mg/dl Est Cr Clr Drug Dosing ml/min Est GFR ( Amer) Est GFR (Non-Af Amer) BUN/Creatinine Ratio (10-20) Glucose (70-99) mg/dl Calcium (8.5-10.1) mg/dl Magnesium (1.8-2.4) mg/dl Total Bilirubin (0.2-1) mg/dl AST (15-37) U/L ALT (12-78) U/L Alkaline Phosphatase (45-117) U/L Troponin I (0-0.045) ng/ml Total Protein (6.4-8.2) gm/dl Albumin (3.4-5.0) gm/dl Globulin (2.5-4.0) gm/dl Albumin/Globulin Ratio (0.9-2) Lipase (73-393) U/L TSH (0.300-4.500) uIu/ml Urine Color Yellow Urine Appearance Clear (Clear) Urine pH 5.0 (4.5-7.5) Ur Specific [place] 1.012 (1.000-1.030) Urine Protein Negative (Negative) Urine Glucose (UA) Negative (Negative) Urine Ketones 1+ H (Negative) Urine Blood Negative (Negative) Urine Nitrite Negative (Negative) Urine Bilirubin Negative (Negative) Urine Urobilinogen Negative (Negative) Ur Leukocyte Esterase Negative (Negative) Urine Test (Negative) Salicylates (2.8-20) mg/dl Urine Opiates Screen Neg (Neg) Ur Methadone, Qual Neg (Neg) Acetaminophen (10-30) ug/ml Urine Barbiturates Neg (Neg) Ur Phencyclidine (PCP) Neg (Neg) U Amphetamin/Meth Scrn Neg (Neg) MDMA (Ecstasy) Screen Neg (Neg) U Benzodiazepines Scrn Neg (Neg) Ur Cocaine Metabolite Neg (Neg) U Marijuana (THC) Screen Neg (Neg) Ethyl Alcohol mg/dL (0-3) mg/dl 09/14/19 09/14/19 09/14/19 Range/Units 21:30 22:11 22:11 WBC 5.93 (4.8-10.8) K/uL RBC 4.18 L (4.2-5.4) M/uL Hgb 10.8 L (12.0-16.0) g/dL Hct 33.3 L (37-47) % MCV 79.7 L (80-100) fL MCH 25.8 (25-34) pg MCHC 32.4 (32-36) g/dL RDW Std Deviation 35.2 L (36.4-46.3) fL RDW Coeff of [place] 12.2 (11.5-14.5) % Plt Count 280 (130-400) K/uL MPV 11.0 H (7.4-10.4) fL Immature Gran % (Auto) 0.2 % Neut % (Auto) 56.5 % Lymph % (Auto) 35.4 % Isabella % (Auto) 6.4 % Eos % (Auto) 1.0 % Baso % (Auto) 0.5 % Immature Gran # (Auto) 0.01 (0.00-0.02) K/uL Neut # (Auto) 3.35 (1.4-6.5) K/uL Lymph # (Auto) 2.10 (1.2-3.4) K/uL Isabella # (Auto) 0.38 (0.11-0.59) K/uL Eos # (Auto) 0.06 (0-0.5) K/uL Baso # (Auto) 0.03 (0-0.2) K/uL PT (9.0-12.0) Seconds INR (0.9-1.1) APTT (21.0-31.0) Seconds PTT Ratio Sodium 137 (136-145) mmol/L Potassium 3.9 (3.5-5.1) mmol/L Chloride 107 (98-107) mmol/L Carbon Dioxide 22 (21-32) mmol/L Anion Gap 7.0 (3-11) BUN 8 (7-18) mg/dl Creatinine 0.65 (0.6-1.2) mg/dl Est Cr Clr Drug Dosing 142.2 ml/min Est GFR ( Amer) 145.0 Est GFR (Non-Af Amer) 125.1 BUN/Creatinine Ratio 11.7 (10-20) Glucose 79 (70-99) mg/dl Calcium 9.5 (8.5-10.1) mg/dl Magnesium 2.0 (1.8-2.4) mg/dl Total Bilirubin 0.4 (0.2-1) mg/dl AST 10 L (15-37) U/L ALT 14 (12-78) U/L Alkaline Phosphatase 78 (45-117) U/L Troponin I < 0.015 (0-0.045) ng/ml Total Protein 8.3 H (6.4-8.2) gm/dl Albumin 4.1 (3.4-5.0) gm/dl Globulin 4.2 H (2.5-4.0) gm/dl Albumin/Globulin Ratio 1.0 (0.9-2) Lipase 92 (73-393) U/L TSH 1.890 (0.300-4.500) uIu/ml Urine Color Urine Appearance (Clear) Urine pH (4.5-7.5) Ur Specific [place] (1.000-1.030) Urine Protein (Negative) Urine Glucose (UA) (Negative) Urine Ketones (Negative) Urine Blood (Negative) Urine Nitrite (Negative) Urine Bilirubin (Negative) Urine Urobilinogen (Negative) Ur Leukocyte Esterase (Negative) Urine Test Negative (Negative) Salicylates (2.8-20) mg/dl Urine Opiates Screen (Neg) Ur Methadone, Qual (Neg) Acetaminophen (10-30) ug/ml Urine Barbiturates (Neg) Ur Phencyclidine (PCP) (Neg) U Amphetamin/Meth Scrn (Neg) MDMA (Ecstasy) Screen (Neg) U Benzodiazepines Scrn (Neg) Ur Cocaine Metabolite (Neg) U Marijuana (THC) Screen (Neg) Ethyl Alcohol mg/dL (0-3) mg/dl 09/14/19 09/14/19 09/15/19 Range/Units 22:11 22:11 00:08 WBC (4.8-10.8) K/uL RBC (4.2-5.4) M/uL Hgb (12.0-16.0) g/dL Hct (37-47) % MCV (80-100) fL MCH (25-34) pg MCHC (32-36) g/dL RDW Std Deviation (36.4-46.3) fL RDW Coeff of [place] (11.5-14.5) % Plt Count (130-400) K/uL MPV (7.4-10.4) fL Immature Gran % (Auto) % Neut % (Auto) % Lymph % (Auto) % Isabella % (Auto) % Eos % (Auto) % Baso % (Auto) % Immature Gran # (Auto) (0.00-0.02) K/uL Neut # (Auto) (1.4-6.5) K/uL Lymph # (Auto) (1.2-3.4) K/uL Isabella # (Auto) (0.11-0.59) K/uL Eos # (Auto) (0-0.5) K/uL Baso # (Auto) (0-0.2) K/uL PT (9.0-12.0) Seconds INR (0.9-1.1) APTT (21.0-31.0) Seconds PTT Ratio Sodium 141 (136-145) mmol/L Potassium 4.1 (3.5-5.1) mmol/L Chloride 110 H (98-107) mmol/L Carbon Dioxide 23 (21-32) mmol/L Anion Gap 8.0 (3-11) BUN 8 (7-18) mg/dl Creatinine 0.63 (0.6-1.2) mg/dl Est Cr Clr Drug Dosing 146.7 ml/min Est GFR ( Amer) 146.5 Est GFR (Non-Af Amer) 126.4 BUN/Creatinine Ratio 12.6 (10-20) Glucose 79 (70-99) mg/dl Calcium 9.2 (8.5-10.1) mg/dl Magnesium (1.8-2.4) mg/dl Total Bilirubin (0.2-1) mg/dl AST (15-37) U/L ALT (12-78) U/L Alkaline Phosphatase (45-117) U/L Troponin I (0-0.045) ng/ml Total Protein (6.4-8.2) gm/dl Albumin (3.4-5.0) gm/dl Globulin (2.5-4.0) gm/dl Albumin/Globulin Ratio (0.9-2) Lipase (73-393) U/L TSH (0.300-4.500) uIu/ml Urine Color Urine Appearance (Clear) Urine pH (4.5-7.5) Ur Specific [place] (1.000-1.030) Urine Protein (Negative) Urine Glucose (UA) (Negative) Urine Ketones (Negative) Urine Blood (Negative) Urine Nitrite (Negative) Urine Bilirubin (Negative) Urine Urobilinogen (Negative) Ur Leukocyte Esterase (Negative) Urine Test (Negative) Salicylates < 1.7 L (2.8-20) mg/dl Urine Opiates Screen (Neg) Ur Methadone, Qual (Neg) Acetaminophen < 2 L (10-30) ug/ml Urine Barbiturates (Neg) Ur Phencyclidine (PCP) (Neg) U Amphetamin/Meth Scrn (Neg) MDMA (Ecstasy) Screen (Neg) U Benzodiazepines Scrn (Neg) Ur Cocaine Metabolite (Neg) U Marijuana (THC) Screen (Neg) Ethyl Alcohol mg/dL < 3.0 (0-3) mg/dl MDM Narrative Physical exam and history were performed. Nursing notes, EMR, and Medication List were personally reviewed. Patient appears to have intentionally taken Advil and oxcarbazepine today. She does have vague suicidal ideation but she admits to me, and also to nursing. This is concerning for a self-harm event. Because of her medical needs IV acc ess was established and labs were obtained. She was given IV fluids and IV Pepcid for comfort. Poison control was contacted. Poison control recommends monitoring and repeating renal function 4 hours after the expected ingestion time to determine if she needs medical versus other care. The patient's blood work is as above and was reviewed. She does not have a significantly elevated white blood cell count, gross anemia, bandemia, or significant electrolyte imbalance. Initial BUN and creatinine are normal. Transaminases are not diagnostic. Urine is without evidence of , infection, or drug use. Tylenol and salicylates are negative. Repeat BUN and creatinine are also normal at the 4-hour rosa. Remaining labs are unremarkable. The patient was felt to be medically cleared and was moved to a mental health room. She was evaluated by the mental health staff, and they do share my concern for the patient's wellbeing. The patient will sign involuntarily for mental health care, however she does have a 302 that has been completed on the chart if needed. Please see the mental health liaison notes for further patient course, plan, and eventual disposition. The chart was completed utilizing [employer] Speech Voice Recognition Software. Grammatical errors, random word insertions, pronoun errors, and incomplete sentences are an occasional consequence of this system due to software limitations, ambient noise, and hardware issues. Any formal questions or concerns about the content, text, or information contained within the body of this dictation should be directly addressed to the provider for clarification. . Impression & Plan Overdose, Depression with suicidal ideation Discharge Plan Visit Data *Final* Discharge Date/Time: 09/15/19 04:22 Chief Complaint: Overdose (Intentional) Stated Complaint: OVERDOSE ON MEDICATION ED Provider: Fred Trevino ED Midlevel Provider: Paulo Holloway Discharge Problem: Overdose, Depression with suicidal ideation Patient Disposition: Admitted As Inpatient Discharge Instructions Interventions: ED Discharge Assessment Last Done: 09/15/19 04:22 Discharge Problem: Overdose Qualifiers: Encounter type: initial encounter Injury intent: intentional self-harm Qualified Code(s): T50.902A - Poisoning by unspecified drugs, medicaments and bi ological substances, intentional self-harm, initial encounter
[2019-09-15 00:45] LABS: BUN Creatinine Ratio 12.6 (10-20); Calcium 9.2 mg/dl (8.5-10.1); Creatinine Clr Calc Pharmacy 146.7 ml/min; Est GFR (African American) 146.5; Est GFR (Non-African American) 126.4; Potassium 4.1 mmol/L (3.5-5.1)
[2019-09-15] MEDS ORDERED: BISMUTH SUBSALICYLATE PER ML OMNICELL CHARGE PO PRN (04:17)
[2019-09-15] MEDS ORDERED: MAGNESIUM HYDROXIDE SUSP 30 ML UDC PO PRN (04:17)
[2019-09-15] MEDS ORDERED: ALUMINUM/MAGNESIUM SUSP 30 ML UDC PO PRN (04:17)
[2019-09-15] MEDS ORDERED: ACETAMINOPHEN 325 MG TAB PO PRN (04:17)
[2019-09-15] MEDS ORDERED: SODIUM CHLORIDE 0.65% NA SOLN 45 ML (OCEAN) PRN (04:17)
--- NOTE | 2019-09-15 16:11 | History & Physical ---
Date of Service September 15, 2019 Impression / Recommendations Impression This 23-year-old woman was admitted after she came to the emergency room and reported that she had taken an intentional overdose of 17 ibuprofen tablets (200 mg) and 10 oxcarbazepine tablet (600 mg) in order to "stop the pain," with reference to psychic pain secondary to severe depression. The patient reports that she does not recall being depressed as a child or during early adolescence. However, her depression may have begun in 2013 upon the untimely of her mother from cancer. The patient indicates that her depression solidified not long after she came to the [facility] [place] [facility] in order to go to school at [employer]. She notes that she is always been shy and has always had difficulty making friends, and is always dependent upon her family for companionship and support. All family members remain in [place] [facility] [place], and although she indicates that she has formed friendships with two other college students, both of whom are from [place] [facility] [place], she feels lonely, isolated, an d homesick. Complicating the clinical picture is the fact the patient experienced the onset of grand mal seizures 2 or 3 years ago. She reports that after a fairly extensive work-up the cause for the seizures has not been identified. She does not have a history of head injury or concussion. She describes the seizures as being tonic-clonic seizures with loss of consciousness and sometimes loss of continence. She reports that her most recent seizure occurred in January 2019, but the seizures reportedly are generally well controlled with anticonvulsant medications. Although the patient reports that she has been adherent with her anticonvulsant medications recently, blood levels measured and January 2019 (the patient reports her last seizure was in January 2019) indicate that she had not been adherent with her prescribed anticonvulsant medications on an outpatient basis. She has been seeing a counselor at [facility], but notes that so far this has not been particularly helpful. The patient expresses interest in cognitive behavioral therapy. We have also discussed antidepressant medications. I told her that I would select extended release venlafaxine. Material risks, including but not limited to the risk of seizure induction associated with venlafaxine were reviewed with the patient. I advised her that the risk is substantially reduced when covered with ant iconvulsant therapy. Also, the patient has a disturbed sleep-wake cycle, and says that she often is awake all night and sleeps all dayparticularly when she has no classes or is off from school as is currently the case. We discussed the effect of really used access to light associated with sleeping during the day and staying awake at night, and it was explained to the patient that while she does not have seasonal affective disorder, the sequela I of spending daylight hours in bed and to being awake at night can have a similarly adverse impact on mood and this may be contributing to her depression. (1) Depression with suicidal ideation: 09/15/19 -The patient has admitted to the [facility] behavioral health unit and is being observed on suicide precautions. -She has been referred for group and activities therapy. We will also attempt to contact the patient's family and [facility], with the patient's permission. -Goals of group therapy and activity therapy will be to improve the patient's social skills, identify improved coping strategies, and soothe her feelings of being isolated and alone. -We will begin antidepressant medication in the form of venlafaxine extended release 150 mg daily. Material risks including, but not limited to the potential for seizure induction has been reviewed with the patient. It was explained that because of her history of seizures it will be particularly important for her to be fully adherent with her anticonvulsant medications. -The patient has an interest in cognitive behavioral therapy, and this will be taken into consideration as part of aftercare planning. 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 There is a question concerning her adherence with her outpatient anticonvulsant medications, namely Keppra and oxcarbazepine, based on admission blood levels. -The patient will be restarted at her outpatient dosages of Keppra and oxcarbazepine. Both have been put on hold because of the overdose, and will now be safe to restart both medications. The patient is currently showing no signs of toxicity, and the elimination half-life of oxcarbazepine is such that given the patient's normal hepatic functioning we can give the patient her usual dosage of oxcarbazepine (and Keppra) for this evening. Inventory Assets Strengths: Intelligent. Supportive family. Motivated to treatment and recovery. Future goals. Needs: Improved mood. Elimination of suicidal impulses. Improved individual coping strategies. Risk Factors Assessment Socially isolated. History of severe depression. History of suicide attempt. Male: No : No Do You Have Access To A Gun?: No Health Problems: Yes Mental Health Diagnoses: Yes Substance Use Disorders: No Previous Attempt: No Previous Psychiatric Hospitalization: No Hopelessness: No Smoker: No Protective Factors Assessment Yazdanism Beliefs: Yes (The patient identifies as Roman Catholic, but does not identify a catholic and notes that she has not attended services in the [facility].) : No Responsible for Young Children: No Employed: No Stable Relationships: Yes Supportive Family: Yes Good Rapport with Provider: No Absence of Any Risk Factors Above: No Psychiatric History Identifying Data JADA RAMEY is a 23-year-old F who currently lives in in a shared apartment with 3 other [employer] students in [place]. She has a history of has a history of depression, and was admitted on 09/15/19 04:17 on a 201 voluntary agreement after she presented to the emergency room and reported that she had taken an overdose of oxcarbazepine and ibuprofen. Chief Complaint " Depression". History of Present Illness The patient is a 23-year-old woman who is currently about to enter her senior year at [employer]. She reports that she is majoring and Stereotypes studies and economics. The patient was born and raised in [place] [facility] in [facility], and has been in the [facility] for approximately 3 years in order to attend [employer]. She reports the onset of depression shortly after coming to the [employer] in order to go to school. Her reported symptoms of depression include depressed mood, crying spells, disrupted sleep, difficulty concentrating, anhedonia, anergia, apathy, and psychosocial withdrawal, as well as feelings of hopelessness, helplessness, and worthlessness. The admission was precipitated when the patient came independently to the emergency department for evaluation after an intentional overdose of 17 tablets of 200 mg ibuprofen and 10 tablets of 600 mg oxcarbazepine. The patient acknowledges that this was a suicide attempt, but also describes it as impulsive and a function of the fact that she did not necessarily want to be , but "just wanted the pain to stop." (Her reference to "pain" is to psychiatric pain associated with the feelings of depression.) She identifies several possible precipitating or contributing factors. Her mother of cancer in October 2013 and [facility]. T he patient reports that she, herself, had been ill with influenza and despite the fact that her mother was dying, her mother helped care for her during her bout with influenza. The patient reports that her mother attended to her while she was still in bed recovering from the flu on a Wednesday, and 2 days later, on Wednesday, the mother . The patient's father quickly remarried, and the patient unconvincingly states, "I guess he had a right to be happy." She reports that she grieved and continues to grieve her mother's , but did not become aware of depression until she came to the [facility] and began college. The patient notes that she has never been particularly outgoing and has difficulty making eye contact. Within this context, she has had trouble making close friends at school, although she notes that there are 2 other [employer] students from [facility] [facility] that she has calmed now and does consider them to be her friends. Nevertheless, she says that a significant problem for her are her feelings of isolation and loneliness. She has 3 younger sisters and an older brother, as well as other family members still in [place] [facility], and she reports that she has remained "homesick" and really misses her family. The patient lives with 3 other people, 2 women and a man, but has not formed friendships with any of these individuals. The patient describes her overdose as being impulsive and she quickly regretted that she had taken the overdose and made arrangements to come to the emergency room for help. Complicating the clinical picture is that the patient began having grand mal seizures 2 or 3 years ago. The patient says that a neurologic work-up has been noncontributory. She takes Keppra and oxcarbazepine for her seizures, and notes that she has not had a seizure since January 2019. She also reports current adherence with her seizure medications. However, blood levels taken in January 2019 of her prescribed anticonvulsants at the time indicated that she had not been adherent. The patient notes that she had a seizure in January 2019. Past Psychiatric History Current Psychiatric Diagnosis: MDD Outpatient Services: Patient says she sees a "counselor" at the counseling center at [employer]. She notes that she has never taken any antidepressant or other psychiatric medications. Do You Have Access To A Gun?: No History of Previous Suicide Attempt: No (Patient reports that this is her first psychiatric hospitalization.) Describe Attempts in the Past: "Just thoughts but I didn't do anything" Past Medication Trials: Patient reports that she has never taken any psychiatric medications but is open to the idea. She does express some ambivalence about medications and states, "I believe that usually medications for mental difficult ies should not necessarily be the first thing tried." However, she acknowledges that she has tried counseling, and was willing to accept that often the most effective intervention for depression is a combination of antidepressant medications and talk therapy. Past Head Trauma/Neuro History History of Concussion/Seizure: Yes (The patient does not have a history of head trauma or concussion. However, she experienced the onset of grand mal seizures 2 or 3 years ago. These reportedly have been controlled with anticonvulsant medications.) Patient reports a history of seizures that began 2 or 3 years ago. She does not have a history of head trauma or concussion. She tells me that she believes that her seizures are now well controlled with her current anticonvulsant regimen. Allergies Allergy/AdvReac Type Severity Reaction Status Date / Time No Known Allergies Allergy Verified 09/14/19 21:44 paracetamol AdvReac Unknown sweats, Uncoded 09/14/19 21:44 chills Home Medications Home Medications Medication Instructions Recorded Confirmed Type oxcarbazepine 600 mg PO BID #60 tab 01/29/19 09/14/19 Rx levetiracetam 500 mg tablet 1,500 mg PO BID tab 02/28/19 09/14/19 History ibuprofen [Advil] 400 mg PO Q6H PRN 09/14/19 09/14/19 History Family History Family History of: None Family Mental Health History Comment: "not that I know of" Alcohol History Hx of Alcohol Use Over the Past 12 Months: No AUDIT Total Score: 0 Smoking Use Have You Smoked or Used Tobacco Products in the Last 30 Days: No Smoking Status: Never smoker Substance History Hx of Prescription Med Misuse Over the Past 12 Months: No Hx of Over the Counter Med Misuse Over the Past 12 Months: No Hx of Inhalent Misuse Over the Past 12 Months: No Hx of Organic Substance Use Over the Past 12 Months: No Hx of Illegal Substances/Street Drug Use Over Past 12 Months: No Problems as a Result of Past Substance Use: None Identified Personal History Living Arrangements: Apartment Living Arrangements Comments: Pt lives in [facility] with 3 room-mates. She notes that she and the roommates are reasonably friendly, but are not friends. Born In: [place] [facility] Childhood: Patient reports that she is the second of her parents' 5 children. She has an older brother and 3 younger sisters. The patient reports that she was always close with her family, including both of her parents and her siblings. Sadly, her mother of complications of skin cancer in October 2013 after a long illness. The patient's father was with a number of young children (the youngest child was only 7 years old) and remarried not long after being . Highest Grade Completed: Some College Highest Grade Completed Comment: Pt is a [employer] senior on an [employer] scholarship. She is from [facility] [facility]. She says that she is to maintain a 3.0 GPA fo r the scholarship and currently her GPA is 2.97. She is enrolled in a class this summer session and 1 next summer session. Employment Status: Student Marital Status: Single Beliefs That Will Affect Care: None (The patient reports that she is Roman Catholic but is not currently attending any services.) Current Legal Problems: No Legal Problems Comment: when asked about legal issues, she did say that she had been involved in a past domestic dispute, but no legal action was involved other than that the police were called Hx Legal Problems: No Hx Traumatic Life Events: No Patient History Medical History Asthma Depression Exposure to TB Seizures Surgical History No pertinent past surgical history Family History Grandmother (Maternal) Hypertension Other No pertinent family history Social History Preferred Language: Marshallese Communication Ability: Effective Physician Relations Representative Required: No Beliefs That Will Affect Care: None (The patient reports that she is Roman Catholic but is not currently attending any services.) Current Living Situation: Alone Current Living Situation Comment: student/apartment Feels Safe at Home: Yes Smoking Status: Never smoker Hx Alcohol Use: No Hx Substance Use: No Review of Systems Review of Systems: All systems reviewed & are unremarkable except as noted in HPI & below At least 10 systems were reviewed today. In addition, the s omatic history, review of systems, and physical examination completed by Paulo Holloway PA-C and approved by Fred Trevino MD have been reviewed and are accepted for purposes of admission to the behavioral health unit. Physical Exam Psychiatric: Orientation: alert, oriented x 3 and cooperative Apperance: appropriately dressed and appropriately groomed The patient indicates that she has always had trouble looking people in the eye and tends to be very shy. Motor Behavior: + psychomotor retardation Patient speech is slow, soft, and sparse. She does speak spontaneously at times. Affect: + depressed affect Mood: + depressed mood Thought Process: goal directed thought process Thought Content: reality based without delusions Patient reports recurrent thoughts of suicide without plan or intentuntil yesterday when she impulsively took an overdose of ibuprofen and oxcarbazepine. Today, she reports that she is not having suicidal thoughts and is glad that she did not succeed in committing suicide. She is able to talk about her plans for the future today which include finishing college and entering graduate school, preferably in [place]. Homicidal Thoughts: denies homicidal thoughts Hallucinations: no auditory hallucinations Cognition: recent memory grossly intact, remote memory grossly intact and attention grossly intact (The patient sometimes appears to be distracted by her thoughts.) Estimated Intelligence: + above average estimated intelligence Insight: + fair insight Judgement: + fair judgement (Certainly, the impulsive overdose that precipitated the admission would be considered evidence of poor judgment. However, she quickly sought medical treatment and is agreeing to care.) Vital Signs (Past 24 Hours): Last Vital Signs Temp 36.7 C 09/15/19 06:00 Pulse 79 09/15/19 06:00 Resp 16 09/15/19 06:00 BP 119/75 09/15/19 06:00 Pulse Ox 98 09/15/19 04:22 Results & Data ([facility]) Laboratory Results Laboratory Results - last 24 hr 09/14/19 09/14/19 09/14/19 09:19 21:30 21:30 WBC RBC Hgb Hct MCV MCH MCHC RDW Std Deviation RDW Coeff of [place]ato Plt Count MPV Immature Gran % (Auto) Neut % (Auto) Lymph % (Auto) [place] % (Auto) Eos % (Auto) Baso % (Auto) Immature Gran # (Auto) Neut # (Auto) Lymph # (Auto) [place] # (Auto) Eos # (Auto) Baso # (Auto) PT 11.5 INR 1.1 APTT 27.0 PTT Ratio 1.0 Sodium Potassium Chloride Carbon Dioxide Anion Gap BUN Creatinine Est Cr Clr Drug Dosing Est GFR ( Amer) Est GFR (Non-Af Amer) BUN/Creatinine Ratio Glucose Calcium Magnesium Total Bilirubin AST ALT Alkaline Phosphatase Troponin I Total Protein Albumin Globulin Albumin/Globulin Ratio Lipase TSH Urine Color Yellow Urine Appearance Clear Urine pH 5.0 Ur Specific [place] 1.012 Urine Protein Negative Urine Glucose (UA) Negative Urine Ketones 1+ H Urine Blood Negative Urine Nitrite Negative Urine Bilirubin Negative Urine Urobilinogen Negative Ur Leukocyte Esterase Negative Urine Test Salicylates Urine Opiates Screen Neg Ur Methadone, Qual Neg Acetaminophen Urine Barbiturates Neg Levetiracetam Ur Phencyclidine (PCP) Neg U Amphetamin/Meth Scrn Neg MDMA (Ecstasy) Screen Neg U Benzodiazepines Scrn Neg Ur Cocaine Metabolite Neg U Marijuana (THC) Screen Neg Ethyl Alcohol mg/dL 09/14/19 09/14/19 09/14/19 21:30 22:11 22:11 WBC 5.93 RBC 4.18 L Hgb 10.8 L Hct 33.3 L MCV 79.7 L MCH 25.8 MCHC 32.4 RDW Std Deviation 35.2 L RDW Coeff of [place] 12.2 Plt Count 280 MPV 11.0 H Immature Gran % (Auto) 0.2 Neut % (Auto) 56.5 Lymph % (Auto) 35.4 [place] % (Auto) 6.4 Eos % (Auto) 1.0 Baso % (Auto) 0.5 Immature Gran # (Auto) 0.01 Neut # (Auto) 3.35 Lymph # (Auto) 2.10 [place] # (Auto) 0.38 Eos # (Auto) 0.06 Baso # (Auto) 0.03 PT INR APTT PTT Ratio Sodium 137 Potassium 3.9 Chloride 107 Carbon Dioxide 22 Anion Gap 7.0 BUN 8 Creatinine 0.65 Est Cr Clr Drug Dosing 142.2 Est GFR ( Amer) 145.0 Est GFR (Non-Af Amer) 125.1 BUN/Creatinine Ratio 11.7 Glucose 79 Calcium 9.5 Magnesium 2.0 Total Bilirubin 0.4 AST 10 L ALT 14 Alkaline Phosphatase 78 Troponin I < 0.015 Total Protein 8.3 H Albumin 4.1 Globulin 4.2 H Albumin/Globulin Ratio 1.0 Lipase 92 TSH 1.890 Urine Color Urine Appearance Urine pH Ur Specific [place] Urine Protein Urine Glucose (UA) Urine Ketones Urine Blood Urine Nitrite Urine Bilirubin Urine Urobilinogen Ur Leukocyte Esterase Urine Test Negative Salicylates Urine Opiates Screen Ur Methadone, Qual Acetaminophen Urine Barbiturates Levetiracetam Ur Phencyclidine (PCP) U Amphetamin/Meth Scrn MDMA (Ecstasy) Screen U Benzodiazepines Scrn Ur Cocaine Metabolite U Marijuana (THC) Screen Ethyl Alcohol mg/dL 09/14/19 09/14/19 09/14/19 22:11 22:11 22:11 WBC RBC Hgb Hct MCV MCH MCHC RDW Std Deviation RDW Coeff of [place] Plt Count MPV Immature Gran % (Auto) Neut % (Auto) Lymph % (Auto) [place] % (Auto) Eos % (Auto) Baso % (Auto) Immature Gran # (Auto) Neut # (Auto) Lymph # (Auto) [place] # (Auto) Eos # (Auto) Baso # (Auto) PT INR APTT PTT Ratio Sodium Potassium Chloride Carbon Dioxide Anion Gap BUN Creatinine Est Cr Clr Drug Dosing Est GFR ( Amer) Est GFR (Non-Af Amer) BUN/Creatinine Ratio Glucose Calcium Magnesium Total Bilirubin AST ALT Alkaline Phosphatase Troponin I Total Protein Albumin Globulin Albumin/Globulin Ratio Lipase TSH Urine Color Urine Appearance Urine pH Ur Specific [place] Urine Protein Urine Glucose (UA) Urine Ketones Urine Blood Urine Nitrite Urine Bilirubin Urine Urobilinogen Ur Leukocyte Esterase Urine Test Salicylates < 1.7 L Urine Opiates Screen Ur Methadone, Qual Acetaminophen < 2 L Urine Barbiturates Levetiracetam Pending Ur Phencyclidine (PCP) U Amphetamin/Meth Scrn MDMA (Ecstasy) Screen U Benzodiazepines Scrn Ur Cocaine Metabolite U Marijuana (THC) Screen Ethyl Alcohol mg/dL < 3.0 09/15/19 00:08 WBC RBC Hgb Hct MCV MCH MCHC RDW Std Deviation RDW Coeff of Anto Plt Count MPV Immature Gran % (Auto) Neut % (Auto) Lymph % (Auto) [place] % (Auto) Eos % (Auto) Baso % (Auto) Immature Gran # (Auto) Neut # (Auto) Lymph # (Auto) [place] # (Auto) Eos # (Auto) Baso # (Auto) PT INR APTT PTT Ratio Sodium 141 Potassium 4.1 Chloride 110 H Carbon Dioxide 23 Anion Gap 8.0 BUN 8 Creatinine 0.63 Est Cr Clr Drug Dosing 146.7 Est GFR ( Amer) 146.5 Est GFR (Non-Af Amer) 126.4 BUN/Creatinine Ratio 12.6 Glucose 79 Calcium 9.2 Magnesium Total Bilirubin AST ALT Alkaline Phosphatase Troponin I Total Protein Albumin Globulin Albumin/Globulin Ratio Lipase TSH Urine Color Urine Appearance Urine pH Ur Specific [place] Urine Protein Urine Glucose (UA) Urine Ketones Urine Blood Urine Nitrite Urine Bilirubin Urine Urobilinogen Ur Leukocyte Esterase Urine Test Salicylates Urine Opiates Screen Ur Methadone, Qual Acetaminophen Urine Barbiturates Levetiracetam Ur Phencyclidine (PCP) U Amphetamin/Meth Scrn MDMA (Ecstasy) Screen U Benzodiazepines Scrn Ur Cocaine Metabolite U Marijuana (THC) Screen Ethyl Alcohol mg/dL Current Inpatient Medications Current Inpatient Medications: Current Inpatient Medications Acetaminophen (Tylenol) 650 mg PO Q4H PRN PRN Reason: Headache or Minor Fever Stop: 10/15/19 04:16 Al Hydrox/Mg Hydrox/Simethicone (Maalox) 30 ml PO Q4H PRN PRN Reason: GI Upset Stop: 10/15/19 04:16 Bismuth Subsalicylate (Kaopectate) 15 ml PO PRN PRN PRN Reason: Loose Stool Stop: 10/15/19 04:16 Hydroxyzine HCl (Vistaril) 50 mg PO HSZ PRN PRN Reason: Insomnia Stop: 10/15/19 04:16 Hydroxyzine HCl (Vistaril) 25 mg PO Q4H PRN PRN Reason: Anxiety Stop: 10/15/19 04:16 Magnesium Hydroxide (Milk Of Magnesia) 30 ml PO DAILY PRN PRN Reason: Constipation Stop: 10/15/19 04:16 Sodium Chloride (Green Nasal) 1 - 2 sprays NA PRN PRN PRN Reason: Nasal Dryness/Congestion Stop: 10/15/19 04:16
[2019-09-15] MEDS ORDERED: ZOLPIDEM TARTRATE 5 MG TAB PO PRN (16:57)
--- NOTE | 2019-09-15 19:15 | Electrocardiogram Report ---
Test Reason : Blood Pressure : / mmHG Vent. Rate : 081 BPM Atrial Rate : 081 BPM P-R Int : 134 ms QRS Dur : 076 ms QT Int : 374 ms P-R-T Axes : 055 041 040 degrees QTc Int : 434 ms Normal sinus rhythm with sinus arrhythmia Normal ECG When compared with ECG of 26-APR-2019 11:36, Premature atrial complexes are no longer Present Confirmed by Michael William ([id number]) on 09/15/2019 7:15:18 PM Referred By: REFERRED SELF Confirmed By:Dylan William
[2019-09-15] MEDS: levETIRAcetam 500 MG TAB PO SCH (21:25)
[2019-09-15] MEDS: OXcarbazepine 150 MG TABLET PO SCH (21:26)
[2019-09-16] MEDS: VENLAFAXINE HCL XR 75 MG CAPXR PO SCH (08:46)
[2019-09-16] MEDS: OXcarbazepine 150 MG TABLET PO SCH (08:46)
[2019-09-16] MEDS: levETIRAcetam 500 MG TAB PO SCH ×2 (08:46→21:50)
--- NOTE | 2019-09-16 10:23 | Psychiatric Progress Note ---
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 The patient reports that she does not recall being depressed as a child or during early adolescence. However, her depression may have begun in 2013 upon the untimely of her mother from cancer. The patient indicates that her depression solidified not long after she came to the [facility] from [place] [facility] in order to go to school at [employer]. She notes that she is always been shy and has always had difficulty making friends, and is always dependent upon her family for companionship and support. All family members remain in [place] [facility] [place] [facility], and although she indicates that she has formed friendships with two other college students, both of whom are from [place] [facility], she feels lonely, isolated, an d homesick. Complicating the clinical picture is the fact the patient experienced the onset of grand mal seizures 2 or 3 years ago. She reports that after a fairly extensive work-up the cause for the seizures has not been identified. She does not have a history of head injury or concussion. She describes the seizures as being tonic-clonic seizures with loss of consciousness and sometimes loss of continence. She reports that her most recent seizure occurred in January 2019, but the seizures reportedly are generally well controlled with anticonvulsant medications. Although the patient reports that she has been adherent with her anticonvulsant medications recently, blood levels measured and January 2019 (the patient reports her last seizure was in January 2019) indicate that she had not been adherent with her prescribed anticonvulsant medications on an outpatient basis. She has been seeing a counselor at [facility], but notes that so far this has not been particularly helpful. The patient expresses interest in cognitive behavioral therapy. We have also discussed antidepressant medications. I told her that I would select extended release venlafaxine. Material risks, including but not limited to the risk of seizure induction associated with venlafaxine were reviewed with the patient. I advised her that the risk is substantially reduced when covered with ant iconvulsant therapy. Also, the patient has a disturbed sleep-wake cycle, and says that she often is awake all night and sleeps all dayparticularly when she has no classes or is off from school as is currently the case. We discussed the effect of really used access to light associated with sleeping during the day and staying awake at night, and it was explained to the patient that while she does not have seasonal affective disorder, the sequela I of spending daylight hours in bed and to being awake at night can have a similarly adverse impact on mood and this may be contributing to her depression. (1) Depression with suicidal ideation: 09/15/19 -The patient has admitted to the [facility] behavioral health unit and is being observed on suicide precautions. -She has been referred for group and activities therapy. We will also attempt to contact the patient's family and [facility], with the patient's permission. -Goals of group therapy and activity therapy will be to improve the patient's social skills, identify improved coping strategies, and soothe her feelings of being isolated and alone. -We will begin antidepressant medication in the form of venlafaxine extended release 150 mg daily. Material risks including, but not limited to the potential for seizure induction has been reviewed with the patient. It was explained that because of her history of seizures it will be particularly important for her to be fully adherent with her anticonvulsant medications. -The patient has an interest in cognitive behavioral therapy, and this will be taken into consideration as part of aftercare planning. 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 There is a question concerning her adherence with her outpatient anticonvulsant medications, namely Keppra and oxcarbazepine, based on admission blood levels. -The patient will be restarted at her outpatient dosages of Keppra and oxcarbazepine. Both have been put on hold because of the overdose, and will now be safe to restart both medications. The patient is currently showing no signs of toxicity, and the elimination half-life of oxcarbazepine is such that given the patient's normal hepatic functioning we can give the patient her usual dosage of oxcarbazepine (and Keppra) for this evening. 09/15 - Pt reports she is no longer prescribed oxcarbazepine, so has refused offered doses - Will discontinue oxcarbazepine and continue only Keppra as prescribed Inventory Assets Strengths: Intelligent. Supportive family. Motivated to treatment and recovery. Future goals. Needs: Improved mood. Elimination of suicidal impulses. Improved individual coping strategies. Risk Factors Assessment Male: No : No Do You Have Access To A Gun?: No Health Problems: Yes Mental Health Diagnoses: Yes Substance Use Disorders: No Previous Attempt: No Previous Psychiatric Hospitalization: No Hopelessness: No Smoker: No Protective Factors Assessment Congregational Beliefs: Yes (The patient identifies as Taoist, but does not identify a yazidi and notes that she has not attended services in the [facility].) : No Responsible for Young Children: No Employed: No Stable Relationships: Yes Supportive Family: Yes Good Rapport with Provider: No Absence of Any Risk Factors Above: No Interval History Identifying Information JADA RAMEY is a 23-year-old F who currently lives in in a shared apartment with 3 other [employer] students in [employer]. She has a history of has a history of depression, and was admitted on 09/15/19 04:17 on a 201 voluntary agreement after she presented to the emergency room and reported that she had taken an overdose of oxcarbazepine and ibuprofen. Chief Complaint "I'm good. Well...not great in some ways." Review of Systems Notes Constitutional: denied Cardiovascular: denied Respiratory: denied Gastrointestinal: reports nausea and an episode of emesis this morning Neurological: denied Psychiatric: denies symptoms other than stated above Total of at least 10 systems reviewed, pertinent positives as above and in HPI. Sleep Information Total Hours of Sleep: 8 Sleep Comments: pt on q-15 minute checks Meal Information Percent Meal Consumed - Breakfast: 50 Percent Meal Consumed - Lunch: 75 Percent Meal Consumed - Dinner: 25 Nutrition Comment: Patient threw up after breakfast. Subjective Subjective Patient was seen & assessed and interval progress reviewed with nursing and social work. Staff report the patient was isolative most of the morning, but did begin attending group in the evening and was reportedly very supportive of peers. Pt rated her mood a 7/10 and "at ease" last night. Pt was referred to [facility] for medication management and is scheduled for a meeting with the [facility] on 09/17 to discuss her scholarship. Pt was seen today to assess progress since admission. Pt states "I'm good" though admits "not great in some ways" - referring to her nausea today. Pt does admit that she feels she has been benefitting from groups. She is remorseful regarding her suicide attempt and states "now I am wanting to spend my time doing something to give meaning to my life." We discussed support the patient has available at school, and reports she is involved in several clubs on campus. We discuss patient potentially reaching out to some of these club members to discuss ways to meet virtually during this time. Pt denies SI as well as other needs or concerns at this time. Physical Exam Psychiatric Orientation: alert, oriented x 3 and cooperative (and pleasant) Apperance: appropriately dressed, appropriately groomed and appeared stated age Eye Contact: good eye contact Motor Behavior: no abnormal motor movements (observed while laying in bed) Speech: normal rate/rhythm/volume of speech Affect: + blunted affect Mood: no depressed mood ("I'm good" - just reporting physical discomfort related to nausea) Thought Process: goal directed thought process and clear/coherent thought process Thought Content: reality based without delusions; no hopelessness Suicidal Thoughts: denies suicidal thoughts and denies suicidal intent Homicidal Thoughts: denies homicidal thoughts Hallucinations: no auditory hallucinations and no visual hallucinations Cognition: recent memory grossly intact, attention grossly intact and language grossly intact Estimated Intelligence: consistent with education level Insight: + fair insight Judgement: + fair judgement Vital Signs (Past 24 Hours) Last Vital Signs Temp 36.4 C L 09/16/19 06:33 Pulse 79 09/16/19 06:33 Resp 18 09/16/19 06:33 BP 107/76 09/16/19 06:33 Pulse Ox 98 09/15/19 04:22 Results & Data ([facility]) Current Inpatient Medications Current Inpatient Medications: Current Inpatient Medications Acetaminophen (Tylenol) 650 mg PO Q4H PRN PRN Reason: Headache or Minor Fever Stop: 10/15/19 04:16 Al Hydrox/Mg Hydrox/Simethicone (Maalox) 30 ml PO Q4H PRN PRN Reason: GI Upset Stop: 10/15/19 04:16 Bismuth Subsalicylate (Kaopectate) 15 ml PO PRN PRN PRN Reason: Loose Stool Stop: 10/15/19 04:16 Hydroxyzine HCl (Vistaril) 50 mg PO HSZ PRN PRN Reason: Insomnia Stop: 10/15/19 04:16 Last Admin: 09/15/19 21:29 Dose: 50 mg Documented by: Hydroxyzine HCl (Vistaril) 25 mg PO Q4H PRN PRN Reason: Anxiety Stop: 10/15/19 04:16 Levetiracetam (Keppra) 1,500 mg PO BID TERRANCE Stop: 10/15/19 20:59 Last Admin: 09/16/19 08:46 Dose: 1,500 mg Documented by: Magnesium Hydroxide (Milk Of Magnesia) 30 ml PO DAILY PRN PRN Reason: Constipation Stop: 10/15/19 04:16 Sodium Chloride (Jones Nasal) 1 - 2 sprays NA PRN PRN PRN Reason: Nasal Dryness/Congestion Stop: 10/15/19 04:16 Venlafaxine HCl (Effexor Extended Release) 75 mg PO QAM TERRANCE Stop: 10/16/19 08:59 Last Admin: 09/16/19 08:46 Dose: 75 mg Documented by: Zolpidem Tartrate (Ambien) 5 mg PO HS PRN PRN Reason: Sleep Stop: 10/15/19 16:56 Mental Health & Subst Abuse Tx Psychiatrist Name of Psychiatrist: KYLEIGH Bojorquez Psychiatrist's Date of Appointment with Psychiatrist: 09/26/19 Time of Appointment with Psychiatrist: 10:30 a.m. Therapist Name of Therapist: DAYTON Nowak Therapist's Date of Therapist Appointment: 09/21/19 Time of Therapist Appointment: 3:00 p.m. Scleroscope Tester Name of Scleroscope Tester: DAYTON Lobo Phone Number for Scleroscope Tester: [phone] Case Management Appointment Comment: Follow up as needed for additional support Post Discharge Appointments Primary Care Physician Name Of Family Doctor: [facility] Primary Care Provider Appointment Comment: [place] [address] Other #1: Name of Aftercare Appointment: [employer] [facility] Phone Number of Aftercare Appointment: [phone]
[2019-09-16] MEDS ORDERED: ONDANSETRON 8MG OD TAB PO STA (12:23)
[2019-09-16] MEDS ORDERED: ONDANSETRON 8MG OD TAB PO PRN (13:23)
--- NOTE | 2019-09-17 08:43 | Psychiatric Progress Note ---
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 The patient reports that she does not recall being depressed as a child or during early adolescence. However, her depression may have begun in 2013 upon the untimely of her mother from cancer. The patient indicates that her depression solidified not long after she came to the [facility] from her [place] [facility] in order to go to school at [employer]. She notes that she is always been shy and has always had difficulty making friends, and is always dependent upon her family for companionship and support. All family members remain in [facility], and although she indicates that she has formed friendships with two other college students, both of whom are from [facility], she feels lonely, isolated, and homesick. Complicating the clinical picture is the fact the patient experienced the onset of grand mal seizures 2 or 3 years ago. She reports that after a fairly extensive work-up the cause for the seizures has not been identified. She reports that her most recent seizure occurred in January 2019, but the seizures reportedly are generally well controlled with anticonvulsant medications. She has been seeing a counselor at [facility], but notes that so far this has not been particularly helpful. The patient expresses interest in cognitive behavioral therapy. Psychotropic medication were also discussed and patient was initiated on venlafaxine after discussion of possible risks and benefits. She is now reporting she no longer wishes to continue this medication. Reviewed that antidepressant medication is being recommended by the treatment team as one avenue to target her depressive symptoms, but she is unwilling at this time to continue the medication or switch to another agent. Pt did submit her 72-hour notice; but little has been done to mitigate presenting risk factors. She remains at high risk of suicide if she is discharged prematurely. (1) Depression with suicidal ideation: 09/15/19 -The patient has admitted to the [facility] behavioral health unit and is being observed on suicide precautions. -She has been referred for group and activities therapy. We will also attempt to contact the patient's family and [facility], with the patient's permission. -Goals of group therapy and activity therapy will be to improve the patient's social skills, identify improved coping strategies, and soothe her feelings of being isolated and alone. -We will begin antidepressant medication in the form of venlafaxine extended release 150 mg daily. Material risks including, but not limited to the potential for seizure induction has been reviewed with the patient. It was explained that because of her history of seizures it will be particularly important for her to be fully adherent with her anticonvulsant medications. -The patient has an interest in cognitive behavioral therapy, and this will be taken into consideration as part of aftercare planning. 09/15 - Continue venlafaxine, which was initiated at 75mg on day of admission - Pt reports mood overall is improved, though is having difficulty today related to nausea - Aftercare coordinated; patient will return to therapy at [facility] and referral made for medication management there as well - Meeting with the [facility] on 09/17 to discuss patient's scholarship 09/16 - Pt reports she is no longer willing to take medication to target her mood, claiming she is not depressed but just "sad". Pt was informed of recommendation from our team that antidepressant medication play a role in her treatment moving forward from her overdose. Pt is not agreeable at this time. Will therefore discontinue venlafaxine. Pt encouraged to reach out if willing to discuss medications, would consider fluoxetine if willing. - Pt reports desire to focus on therapeutic intervention, but is not consistent with group attendance - stating she would rather participate in 1:1 counseling. 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 There is a question concerning her adherence with her outpatient anticonvulsant medications, namely Keppra and oxcarbazepine, based on admission blood levels. -The patient will be restarted at her outpatient dosages of Keppra and oxcarbazepine. Both have been put on hold because of the overdose, and will now be safe to restart both medications. The patient is currently showing no signs of toxicity, and the elimination half-life of oxcarbazepine is such that given the patient's normal hepatic functioning we can give the patient her usual dosage of oxcarbazepine (and Keppra) for this evening. 09/15 - Pt reports she is no longer prescribed oxcarbazepine, so has refused offered doses - Will discontinue oxcarbazepine and continue only Keppra as prescribed Inventory Assets Strengths: Intelligent. Supportive family. Motivated to treatment and recovery. Future goals. Needs: Improved mood. Elimination of suicidal impulses. Improved individual coping strategies. Risk Factors Assessment Male: No : No Do You Have Access To A Gun?: No Health Problems: Yes Mental Health Diagnoses: Yes Substance Use Disorders: No Previous Attempt: No Previous Psychiatric Hospitalization: No Hopelessness: No Smoker: No Protective Factors Assessment Scientologist Beliefs: Yes (The patient identifies as Episcopal, but does not identify a cheondoism and notes that she has not attended services in the [place].) : No Responsible for Young Children: No Employed: No Stable Relationships: Yes Supportive Family: Yes Good Rapport with Provider: No Absence of Any Risk Factors Above: No Interval History Identifying Information JADA RAMEY is a 23-year-old F who currently lives in in a shared apartment with 3 other [employer] students in [place]. She has a history of has a history of depression, and was admitted on 09/15/19 04:17 on a 201 voluntary agreement after she presented to the emergency room and reported that she had taken an overdose of oxcarbazepine and ibuprofen. Chief Complaint "Um, I'm doing very well, thank you." Review of Systems Notes Constitutional: denied Cardiovascular: denied Respiratory: denied Gastrointestinal: denied Musculoskeletal/Genitourinary: reports menstrual cramping Neurological: denied Psychiatric: denies symptoms other than stated above Total of at least 10 systems reviewed, pertinent positives as above and in HPI. Sleep Information Total Hours of Sleep: 7.5 Sleep Comments: pt appeared to sleep 2.5 hrs during evening shift. pt on q-15 minute checks Meal Information Percent Meal Consumed - Breakfast: 100 Percent Meal Consumed - Lunch: 0 Percent Meal Consumed - Dinner: 25 Nutrition Comment: Patient threw up after breakfast. Subjective Subjective Patient was seen & assessed and interval progress reviewed with nursing and social work. Staff report the patient has been cooperative and attending groups. She has a meeting with a member services representative from the [facility] on 09/17 regarding her scholarship. Pt was seen today to assess progress since admission. Pt states she is feeling "very well, thank you." This is not consistent with her current behavior, as she is laying in her room with the blanket pulled over her face in the middle of the afternoon. Pt does report she is having menstrual cramping and claims this is why she is resting in bed. Pt reports that her mood has improved overall. She denies SI, and is now stating that her overdose was not a suicide attempt, but rather an attempt to "numb the pain. I am not here because I'm depressed, I'm sad. I just don't want to live a life without purpose." This provider shared concern that patient is stating she was not depressed, but was still unable to find a more appropriate way to manage these feelings. We discussed her refusal of venlafaxine this morning. Pt stated she would prefer to take the medication at night, but then states "I like to not take it at all, but I understand my position and that I will be forced to do it." Reasoning for the recommendation of an antidepressant medication was explained; however, patient was informed that she is admitted voluntarily and that there is no intent to force her to take medications if she is able to demonstrate other appropriate ways to manage her symptoms. She was reminded that it is the recommendation of the treatment team that medications play a role in her treatment plan; however, she continues to verbalize desire for CBT only. Pt denies SI at this time. She does report willingness to accept an order for prn pain medication for her cramping. She denies other needs or concerns at this time. Physical Exam Psychiatric Orientation: alert, oriented x 3 and + guarded (superficially cooperative ) Apperance: + disheveled (appearing unkempt as she is laying in bed) and appeared stated age Eye Contact: + fair eye contact Motor Behavior: no abnormal motor movements (observed while laying in bed) Speech: normal rate/rhythm/volume of speech (monotone, soft volume) Affect: + depressed affect; + mood not congruent with affect Mood: no depressed mood ("Very well") Thought Process: goal directed thought process and thought association intact Thought Content: reality based without delusions; no hopelessness and no worthlessness Suicidal Thoughts: denies suicidal thoughts and denies suicidal intent Homicidal Thoughts: denies homicidal thoughts Hallucinations: no auditory hallucinations and no visual hallucinations Cognition: recent memory grossly intact, attention grossly intact and language grossly intact Estimated Intelligence: consistent with education level Insight: + fair insight Judgement: + fair judgement Vital Signs (Past 24 Hours) Last Vital Signs Temp 36.5 C 09/17/19 06:26 Pulse 81 09/17/19 06:27 Resp 18 09/17/19 06:26 BP 113/76 09/17/19 06:27 Pulse Ox 98 09/15/19 04:22 Results & Data ([facility]) Current Inpatient Medications Current Inpatient Medications: Current Inpatient Medications Acetaminophen (Tylenol) 650 mg PO Q4H PRN PRN Reason: Headache or Minor Fever Stop: 10/15/19 04:16 Al Hydrox/Mg Hydrox/Simethicone (Maalox) 30 ml PO Q4H PRN PRN Reason: GI Upset Stop: 10/15/19 04:16 Bismuth Subsalicylate (Kaopectate) 15 ml PO PRN PRN PRN Reason: Loose Stool Stop: 10/15/19 04:16 Hydroxyzine HCl (Vistaril) 50 mg PO HSZ PRN PRN Reason: Insomnia Stop: 10/15/19 04:16 Last Admin: 09/15/19 21:29 Dose: 50 mg Documented by: Hydroxyzine HCl (Vistaril) 25 mg PO Q4H PRN PRN Reason: Anxiety Stop: 10/15/19 04:16 Levetiracetam (Keppra) 1,500 mg PO BID TERRANCE Stop: 10/15/19 20:59 Last Admin: 09/16/19 21:50 Dose: 1,500 mg Documented by: Magnesium Hydroxide (Milk Of Magnesia) 30 ml PO DAILY PRN PRN Reason: Constipation Stop: 10/15/19 04:16 Ondansetron HCl (Zofran Odt) 8 mg PO Q6H PRN PRN Reason: Nausea Stop: 10/16/19 13:22 Sodium Chloride (Mccammon Nasal) 1 - 2 sprays NA PRN PRN PRN Reason: Nasal Dryness/Congestion Stop: 10/15/19 04:16 Venlafaxine HCl (Effexor Extended Release) 75 mg PO QAM TERRANCE Stop: 10/16/19 08:59 Last Admin: 09/16/19 08:46 Dose: 75 mg Documented by: Mental Health & Subst Abuse Tx Psychiatrist Name of Psychiatrist: KYLEIGH Bojorquez Psychiatrist's Date of Appointment with Psychiatrist: 09/26/19 Time of Appointment with Psychiatrist: 10:30 a.m. Therapist Name of Therapist: DAYTON Nowak Therapist's Date of Therapist Appointment: 09/21/19 Time of Therapist Appointment: 3:00 p.m. Career And Technology Education Teacher Name of Career And Technology Education Teacher: DAYTON Lobo Phone Number for Career And Technology Education Teacher: [phone] Case Management Appointment Comment: Follow up as needed for additional support Post Discharge Appointments Primary Care Physician Name Of Family Doctor: [facility] Primary Care Provider Appointment Comment: [facility], Shavon Das, [place] [address] Other #1: Name of Aftercare Appointment: [employer] [facility] Phone Number of Aftercare Appointment: [phone]
[2019-09-17] MEDS: levETIRAcetam 500 MG TAB PO SCH ×2 (09:42→20:55)
[2019-09-17] MEDS: VENLAFAXINE HCL XR 75 MG CAPXR PO SCH (09:42)
[2019-09-17] MEDS ORDERED: IBUPROFEN 200 MG TAB PO PRN (15:07)
--- NOTE | 2019-09-18 09:37 | Psychiatric Progress Note ---
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 The patient reports that she does not recall being depressed as a child or during early adolescence. However, her depression may have begun in 2013 upon the untimely of her mother from cancer. The patient indicates that her depression solidified not long after she came to the [facility] from her [place] [facility] in order to go to school at [employer]. She notes that she is always been shy and has always had difficulty making friends, and is always dependent upon her family for companionship and support. All family members remain in [facility], and although she indicates that she has formed friendships with two other college students, both of whom are from [facility], she feels lonely, isolated, and homesick. Complicating the clinical picture is the fact the patient experienced the onset of grand mal seizures 2 or 3 years ago. She reports that after a fairly extensive work-up the cause for the seizures has not been identified. She reports that her most recent seizure occurred in January 2019, but the seizures reportedly are generally well controlled with anticonvulsant medications. She has been seeing a counselor at [facility], but notes that so far this has not been particularly helpful. The patient expresses interest in cognitive behavioral therapy. Psychotropic medication were also discussed and patient was initiated on venlafaxine after discussion of possible risks and benefits. She is now reporting she no longer wishes to continue this medication. Reviewed that antidepressant medication is being recommended by the treatment team as one avenue to target her depressive symptoms, but she is unwilling at this time to continue the medication or switch to another agent. Pt did submit her 72-hour notice; but little has been done to mitigate presenting risk factors. She remains at high risk of suicide if she is discharged prematurely. (1) Depression with suicidal ideation: 09/15/19 -The patient has admitted to the [facility] and is being observed on suicide precautions. -She has been referred for group and activities therapy. We will also attempt to contact the patient's family and [facility], with the patient's permission. -Goals of group therapy and activity therapy will be to improve the patient's social skills, identify improved coping strategies, and soothe her feelings of being isolated and alone. -We will begin antidepressant medication in the form of venlafaxine extended release 150 mg daily. Material risks including, but not limited to the potential for seizure induction has been reviewed with the patient. It was explained that because of her history of seizures it will be particularly important for her to be fully adherent with her anticonvulsant medications. -The patient has an interest in cognitive behavioral therapy, and this will be taken into consideration as part of aftercare planning. 09/15 - Continue venlafaxine, which was initiated at 75mg on day of admission - Pt reports mood overall is improved, though is having difficulty today related to nausea - Aftercare coordinated; patient will return to therapy at [facility] and referral made for medication management there as well - Meeting with the [facility] on 09/17 to discuss patient's scholarship 09/16 - Pt reports she is no longer willing to take medication to target her mood, claiming she is not depressed but just "sad". Pt was informed of recommendation from our team that antidepressant medication play a role in her treatment moving forward from her overdose. Pt is not agreeable at this time. Will therefore discontinue venlafaxine. Pt encouraged to reach out if willing to discuss medications, would consider fluoxetine if willing. - Pt reports desire to focus on therapeutic intervention, but is not consistent with group attendance - stating she would rather participate in 1:1 counseling. - Pt denies SI - Pt did submit her 72-hour notice today 09/17 - Reports improvement in mood, denies SI today - Able to more openly discuss the potential for medication consideration, but at this time patient is not willing to trail another agent. Encouraged to keep her appointment with Dr. Bojorquez for ongoing evaluation. 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 There is a question concerning her adherence with her outpatient anticonvulsant medications, namely Keppra and oxcarbazepine, based on admission blood levels. -The patient will be restarted at her outpatient dosages of Keppra and oxcarbazepine. Both have been put on hold because of the overdose, and will now be safe to restart both medications. The patient is currently showing no signs of toxicity, and the elimination half-life of oxcarbazepine is such that given the patient's normal hepatic functioning we can give the patient her usual dosage of oxcarbazepine (and Keppra) for this evening. 09/15 - Pt reports she is no longer prescribed oxcarbazepine, so has refused offered doses - Will discontinue oxcarbazepine and continue only Keppra as prescribed Inventory Assets Strengths: Intelligent. Supportive family. Motivated to treatment and recovery. Future goals. Needs: Improved mood. Elimination of suicidal impulses. Improved individual coping strategies. Risk Factors Assessment Male: No : No Do You Have Access To A Gun?: No Health Problems: Yes Mental Health Diagnoses: Yes Substance Use Disorders: No Previous Attempt: No Previous Psychiatric Hospitalization: No Hopelessness: No Smoker: No Protective Factors Assessment Mormonism Beliefs: Yes (The patient identifies as Christianity, but does not identify a episcopalian and notes that she has not attended services in the [facility].) : No Responsible for Young Children: No Employed: No Stable Relationships: Yes Supportive Family: Yes Good Rapport with Provider: No Absence of Any Risk Factors Above: No Interval History Identifying Information JADA RAMEY is a 23-year-old F who currently lives in in a shared apartment with 3 other [employer] students in [place]. She has a history of has a history of depression, and was admitted on 09/15/19 04:17 on a 201 voluntary agreement after she presented to the emergency room and reported that she had taken an overdose of oxcarbazepine and ibuprofen. Chief Complaint "I'm feeling better today." Review of Systems Notes Constitutional: denied Cardiovascular: denied Respiratory: denied Gastrointestinal: denied Neurological: denied Psychiatric: denies symptoms other than stated above Total of at least 10 systems reviewed, pertinent positives as above and in HPI. Sleep Information Total Hours of Sleep: 7.75 Sleep Comments: pt appeared to sleep 2.5 hrs during evening shift. pt on q-15 minute checks Meal Information Percent Meal Consumed - Breakfast: 20 Percent Meal Consumed - Lunch: 70 Percent Meal Consumed - Dinner: 90 Nutrition Comment: . Subjective Subjective Patient was seen & assessed and interval progress reviewed with treatment team. Staff report the patient was somewhat isolative yesterday, reporting desire for individual counseling but participating appropriately in group sessions. She did spend some time in her room alone, complaining of menstrual cramps. Pt has a meeting scheduled with the [facility] this afternoon. She has submitted her 72-hour notice which expires on 09/19 at 1045. Pt was seen today to assess progress since admission. Pt reports that she is felling "better today." We discussed her meeting this afternoon, with patient stating she is feeling "indifferent" about this session. Pt states that she is not concerned about her GPA as it relates to losing her scholarship, but is concerned about her ability to get into graduate school. Pt states "to say it dropped a little is an understatement." Pt states that she has found strength in thinking about her grandmother, who is "the highest when it comes to resilience." She shares that her grandmother lost both of her children and has raised her grandchildren and "told me to always be strong, so I never want to let her down." Pt states "I made a promise to my grandmother than I would get a degree." Pt was more open today to discussing the role of antidepressant medications when it comes to treatment recommendations. While she is still not agreeable for medications at this time, she was willing to discuss warning signs or worsening symptoms that would indicate a need to explore these concepts further. Pt was encouraged to keep her appointment with the [facility] psychiatrist in order to have a provider to discuss this consideration with. Pt denies suicidality today and continues to be eager for discharge. Pt was encouraged to continue to attend group programming routinely to allow staff to better assess progress over the course of her admission. She denies other needs or concerns at this time. Physical Exam Psychiatric Orientation: alert, oriented x 3 and cooperative (pleasant) Apperance: appropriately dressed (casually, still wearing pajama pants and top), appropriately groomed and appeared stated age Eye Contact: + fair eye contact Motor Behavior: steady gait and station and no abnormal motor movements Speech: normal rate/rhythm/volume of speech Affect: + blunted affect (but much brighter today compared to yesterday) Mood: no depressed mood ("I'm much better") Thought Process: goal directed thought process, clear/coherent thought process and thought association intact Thought Content: reality based without delusions and + guilt (feeling she is not always a good example for her little sisters); no hopelessness Suicidal Thoughts: denies suicidal thoughts and denies suicidal intent Homicidal Thoughts: denies homicidal thoughts Hallucinations: no auditory hallucinations and no visual hallucinations Cognition: recent memory grossly intact, remote memory grossly intact and language grossly intact Estimated Intelligence: consistent with education level Insight: + fair insight Judgement: + fair judgement Vital Signs (Past 24 Hours) Last Vital Signs Temp 36.8 C 09/18/19 06:47 Pulse 97 H 09/18/19 06:47 Resp 18 09/18/19 06:47 BP 119/81 09/18/19 06:47 Pulse Ox 98 09/15/19 04:22 Results & Data ([facility]) Current Inpatient Medications Current Inpatient Medications: Current Inpatient Medications Acetaminophen (Tylenol) 650 mg PO Q4H PRN PRN Reason: Headache or Minor Fever Stop: 10/15/19 04:16 Al Hydrox/Mg Hydrox/Simethicone (Maalox) 30 ml PO Q4H PRN PRN Reason: GI Upset Stop: 10/15/19 04:16 Bismuth Subsalicylate (Kaopectate) 15 ml PO PRN PRN PRN Reason: Loose Stool Stop: 10/15/19 04:16 Hydroxyzine HCl (Vistaril) 50 mg PO HSZ PRN PRN Reason: Insomnia Stop: 10/15/19 04:16 Last Admin: 09/15/19 21:29 Dose: 50 mg Documented by: Hydroxyzine HCl (Vistaril) 25 mg PO Q4H PRN PRN Reason: Anxiety Stop: 10/15/19 04:16 Ibuprofen (Advil) 200 mg PO Q6H PRN PRN Reason: pain/cramping Stop: 10/17/19 15:06 Levetiracetam (Keppra) 1,500 mg PO BID TERRANCE Stop: 10/15/19 20:59 Last Admin: 09/17/19 20:55 Dose: 1,500 mg Documented by: Magnesium Hydroxide (Milk Of Magnesia) 30 ml PO DAILY PRN PRN Reason: Constipation Stop: 10/15/19 04:16 Ondansetron HCl (Zofran Odt) 8 mg PO Q6H PRN PRN Reason: Nausea Stop: 10/16/19 13:22 Sodium Chloride (Moca Nasal) 1 - 2 sprays NA PRN PRN PRN Reason: Nasal Dryness/Congestion Stop: 10/15/19 04:16 Mental Health & Subst Abuse Tx Psychiatrist Name of Psychiatrist: KYLEIGH Bojorquez Psychiatrist's Date of Appointment with Psychiatrist: 09/26/19 Time of Appointment with Psychiatrist: 10:30 a.m. Therapist Name of Therapist: DAYTON Nowak Therapist's Date of Therapist Appointment: 09/21/19 Time of Therapist Appointment: 3:00 p.m. Linen Supervisor Name of Linen Supervisor: DAYTON Lobo Phone Number for Linen Supervisor: [phone] Case Management Appointment Comment: Follow up as needed for additional support Post Discharge Appointments Primary Care Physician Name Of Family Doctor: [facility] Primary Care Provider Appointment Comment: [facility], [place] [id number] Other #1: Name of Aftercare Appointment: [employer] [facility] Phone Number of Aftercare Appointment: [phone]
[2019-09-18] MEDS: levETIRAcetam 500 MG TAB PO SCH ×2 (09:42→20:48)
[2019-09-19] MEDS: levETIRAcetam 500 MG TAB PO SCH (08:44)
--- NOTE | 2019-09-19 11:51 | Discharge Summary ---
Date of Service September 19, 2019 History of Present Illness The patient is a 23-year-old woman who is currently about to enter her senior year at [employer]. She reports that she is majoring and studies and economics. The patient was born and raised in [facility] in [facility], and has been in the [facility] for approximately 3 years in order to attend [employer]. She reports the onset of depression shortly after coming to the [facility] in order to go to school. Her reported symptoms of depression include depressed mood, crying spells, disrupted sleep, difficulty concentrating, anhedonia, anergia, apathy, and psychosocial withdrawal, as well as feelings of hopelessness, helplessness, and worthlessness. The admission was precipitated when the patient came independently to the emergency department for evaluation after an intentional overdose of 17 tablets of 200 mg ibuprofen and 10 tablets of 600 mg oxcarbazepine. The patient acknowledges that this was a suicide attempt, but also describes it as impulsive and a function of the fact that she did not necessarily want to be , but "just wanted the pain to stop." (Her reference to "pain" is to psychiatric pain associated with the feelings of depression.) She identifies several possible precipitating or cont ributing factors. Her mother of cancer in October 2013 and [facility]. The patient reports that she, herself, had been ill with influenza and despite the fact that her mother was dying, her mother helped care for her during her bout with influenza. The patient reports that her mother attended to her while she was still in bed recovering from the flu on a Wednesday, and 2 days later, on Wednesday, the mother . The patient's father quickly remarried, and the patient unconvincingly states, "I guess he had a right to be happy." She reports that she grieved and continues to grieve her mother's , but did not become aware of depression until she came to the [facility] and began college. The patient notes that she has never been particularly outgoing and has difficulty making eye contact. Within this context, she has had trouble making close friends at school, although she notes that there are 2 other [employer] students from [place] [facility] that she has calmed now and does consider them to be her friends. Nevertheless, she says that a significant problem for her are her feelings of isolation and loneliness. She has 3 younger sisters and an older brother, as well as other family members still in [place], and she reports that she has remained "homesick" and really misses her family. The patient lives with 3 other people, 2 women and a man, but has not formed friendships with any of these individuals. The patient describes her overdose as being impulsive and she quickly regretted that she had taken the overdose and made arrangements to come to the emergency room for help. Complicating the clinical picture is that the patient began having grand mal seizures 2 or 3 years ago. The patient says that a neurologic work-up has been noncontributory. She takes Keppra and oxcarbazepine for her seizures, and notes that she has not had a seizure since January 2019. She also reports current adherence with her seizure medications. However, blood levels taken in January 2019 of her prescribed anticonvulsants at the time indicated that she had not been adherent. The patient notes that she had a seizure in January 2019. Physical Exam Vital Signs (Past 24 Hours) Last Vital Signs Temp 36.4 C L 09/19/19 06:45 Pulse 84 09/19/19 06:45 Resp 18 09/19/19 06:45 BP 119/82 09/19/19 06:45 Pulse Ox 98 09/15/19 04:22 Principal Diagnosis Depression; Suicidal Ideation Psychiatric Data Day of Discharge Assessment At time of discharge patient is casually groomed and no acute distress. She makes adequate eye contact. She describes her mood as a 6-7 out of 10 and affect is appropriate to stated mood and calm. She is not tearful. Speech is accented, clear, spontaneous. Thoughts are a little overinclusive but overall consistently goal-directed and logical. No evidence of response to internal stimuli. She denies thoughts of harm to herself or others. Insight improving. Judgment and impulse control also improving. Fully oriented. Patient describes improving hopefulness. She has been reminded that she is loved and of value. At time of interview today patient requesting discharge as she finds herself feeling more confined and would like to be able to attend to her schoolwork. We explored feelings of pressure, self devaluation, fear of burdening others with her problems, and the fleeting suicidal ideation that she had experienced precipitating her admission here. She convincingly denies ongoing intent or plan for self-harm. She states very confidently that she does not want to , and that she does not want to leave a legacy of suicide for the people that she cares about such as her friend, her grandmother, or her nephew. We had a lengthy conversation regarding the potential therapeutic benefits of antidepressant treatment which may actually improve outcomes in the cognitive behavioral therapy that she plans to pursue however she ultimately preferred to defer this decision to her outpatient provider, and she will be seeing Dr. bojorquez for psychiatric intake next week. She is also scheduled for psychotherapy intake later this week. She was recommended reading reference, [facility] for self directed cognitive behavioral intervention in the interim. Advance Directives Advance Directives Information Provided: Yes Advance Directives: No Mental Health Advance Directive: No Advance Directives on File: No Living Will: No Power of Displayer Merchandise: No Advance Directives Reason:: Declines as Mental Health Visit. Risk Factors Assessment Male: No : No Do You Have Access To A Gun?: No Health Problems: Yes Mental Health Diagnoses: Yes Substance Use Disorders: No Previous Attempt: No Previous Attempt; Highly Lethal: No Previous Attempt; Planned: No Previous Psychiatric Hospitalization: No Hopelessness: No Smoker: No Protective Factors Assessment Episcopal Beliefs: Yes (The patient identifies as Pentecostalism, but does not identify a mandaeism and notes that she has not attended services in the [place].) : No Responsible for Young Children: No Employed: No Stable Relationships: Yes Supportive Family: Yes Good Rapport with Provider: No Absence of Any Risk Factors Above: No Tobacco Cessation at Discharge Tobacco Cessation Medication Prescribed at Discharge: Not Applicable/Non-Smoker Total Time Total Time Spent: Greater Than 30 Minutes Total Time Includes: Examination of the patient, Discharge Planning, Medication Reconciliation and As well as (brief cognitive and supportive therapy ) Discharge Data Lab Results 09/14/19 09/14/19 09/14/19 09:19 21:30 21:30 WBC RBC Hgb Hct MCV MCH MCHC RDW Std Deviation RDW Coeff of [place]ato Plt Count MPV Immature Gran % (Auto) Neut % (Auto) Lymph % (Auto) [place] % (Auto) Eos % (Auto) Baso % (Auto) Immature Gran # (Auto) Neut # (Auto) Lymph # (Auto) [place] # (Auto) Eos # (Auto) Baso # (Auto) PT 11.5 INR 1.1 APTT 27.0 PTT Ratio 1.0 Sodium Potassium Chloride Carbon Dioxide Anion Gap BUN Creatinine Est Cr Clr Drug Dosing Est GFR ( Amer) Est GFR (Non-Af Amer) BUN/Creatinine Ratio Glucose Calcium Magnesium Total Bilirubin AST ALT Alkaline Phosphatase Troponin I Total Protein Albumin Globulin Albumin/Globulin Ratio Lipase TSH Urine Color Yellow Urine Appearance Clear Urine pH 5.0 Ur Specific [place] 1.012 Urine Protein Negative Urine Glucose (UA) Negative Urine Ketones 1+ H Urine Blood Negative Urine Nitrite Negative Urine Bilirubin Negative Urine Urobilinogen Negative Ur Leukocyte Esterase Negative Urine Test Salicylates Urine Opiates Screen Neg Ur Methadone, Qual Neg Acetaminophen Urine Barbiturates Neg Ur Phencyclidine (PCP) Neg U Amphetamin/Meth Scrn Neg MDMA (Ecstasy) Screen Neg U Benzodiazepines Scrn Neg Ur Cocaine Metabolite Neg U Marijuana (THC) Screen Neg Ethyl Alcohol mg/dL 09/14/19 09/14/19 09/14/19 21:30 22:11 22:11 WBC 5.93 RBC 4.18 L Hgb 10.8 L Hct 33.3 L MCV 79.7 L MCH 25.8 MCHC 32.4 RDW Std Deviation 35.2 L RDW Coeff of [place] 12.2 Plt Count 280 MPV 11.0 H Immature Gran % (Auto) 0.2 Neut % (Auto) 56.5 Lymph % (Auto) 35.4 [place] % (Auto) 6.4 Eos % (Auto) 1.0 Baso % (Auto) 0.5 Immature Gran # (Auto) 0.01 Neut # (Auto) 3.35 Lymph # (Auto) 2.10 [place] # (Auto) 0.38 Eos # (Auto) 0.06 Baso # (Auto) 0.03 PT INR APTT PTT Ratio Sodium 137 Potassium 3.9 Chloride 107 Carbon Dioxide 22 Anion Gap 7.0 BUN 8 Creatinine 0.65 Est Cr Clr Drug Dosing 142.2 Est GFR ( Amer) 145.0 Est GFR (Non-Af Amer) 125.1 BUN/Creatinine Ratio 11.7 Glucose 79 Calcium 9.5 Magnesium 2.0 Total Bilirubin 0.4 AST 10 L ALT 14 Alkaline Phosphatase 78 Troponin I < 0.015 Total Protein 8.3 H Albumin 4.1 Globulin 4.2 H Albumin/Globulin Ratio 1.0 Lipase 92 TSH 1.890 Urine Color Urine Appearance Urine pH Ur Specific [place] Urine Protein Urine Glucose (UA) Urine Ketones Urine Blood Urine Nitrite Urine Bilirubin Urine Urobilinogen Ur Leukocyte Esterase Urine Test Negative Salicylates Urine Opiates Screen Ur Methadone, Qual Acetaminophen Urine Barbiturates Ur Phencyclidine (PCP) U Amphetamin/Meth Scrn MDMA (Ecstasy) Screen U Benzodiazepines Scrn Ur Cocaine Metabolite U Marijuana (THC) Screen Ethyl Alcohol mg/dL 09/14/19 09/14/19 09/15/19 22:11 22:11 00:08 WBC RBC Hgb Hct MCV MCH MCHC RDW Std Deviation RDW Coeff of [place] Plt Count MPV Immature Gran % (Auto) Neut % (Auto) Lymph % (Auto) [place] % (Auto) Eos % (Auto) Baso % (Auto) Immature Gran # (Auto) Neut # (Auto) Lymph # (Auto) [place] # (Auto) Eos # (Auto) Baso # (Auto) PT INR APTT PTT Ratio Sodium 141 Potassium 4.1 Chloride 110 H Carbon Dioxide 23 Anion Gap 8.0 BUN 8 Creatinine 0.63 Est Cr Clr Drug Dosing 146.7 Est GFR ( Amer) 146.5 Est GFR (Non-Af Amer) 126.4 BUN/Creatinine Ratio 12.6 Glucose 79 Calcium 9.2 Magnesium Total Bilirubin AST ALT Alkaline Phosphatase Troponin I Total Protein Albumin Globulin Albumin/Globulin Ratio Lipase TSH Urine Color Urine Appearance Urine pH Ur Specific [place] Urine Protein Urine Glucose (UA) Urine Ketones Urine Blood Urine Nitrite Urine Bilirubin Urine Urobilinogen Ur Leukocyte Esterase Urine Test Salicylates < 1.7 L Urine Opiates Screen Ur Methadone, Qual Acetaminophen < 2 L Urine Barbiturates Ur Phencyclidine (PCP) U Amphetamin/Meth Scrn MDMA (Ecstasy) Screen U Benzodiazepines Scrn Ur Cocaine Metabolite U Marijuana (THC) Screen Ethyl Alcohol mg/dL < 3.0 Hospital Course (1) Depression with suicidal ideation: 09/15/19 -The [facility] and is being observed on suicide precautions. -She has been referred for group and activities therapy. We will also attempt to contact the patient's family and [facility], with the patient's permission. -Goals of group therapy and activity therapy will be to improve the patient's social skills, identify improved coping strategies, and soothe her feelings of being isolated and alone. -We will begin antidepressant medication in the form of venlafaxine extended release 150 mg daily. Material risks including, but not limited to the potential for seizure induction has been reviewed with the patient. It was explained that because of her history of seizures it will be particularly important for her to be fully adherent with her anticonvulsant medications. -The patient has an interest in cognitive behavioral therapy, and this will be taken into consideration as part of aftercare planning. 09/15 - Continue venlafaxine, which was initiated at 75mg on day of admission - Pt reports mood overall is improved, though is having difficulty today related to nausea - Aftercare coordinated; patient will return to therapy at [facility] and referral made for medication management there as well - Meeting with the [facility] on 09/17 to discuss patient's scholarship 09/16 - Pt reports she is no longer willing to take medication to target her mood, cla iming she is not depressed but just "sad". Pt was informed of recommendation from our team that antidepressant medication play a role in her treatment moving forward from her overdose. Pt is not agreeable at this time. Will therefore discontinue venlafaxine. Pt encouraged to reach out if willing to discuss medications, would consider fluoxetine if willing. - Pt reports desire to focus on therapeutic intervention, but is not consistent with group attendance - stating she would rather participate in 1:1 counseling. - Pt denies SI - Pt did submit her 72-hour notice today 09/17 - Reports improvement in mood, denies SI today - Able to more openly discuss the potential for medication consideration, but at this time patient is not willing to trail another agent. Encouraged to keep her appointment with Dr. Bojorquez for ongoing evaluation. 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 There is a question concerning her adherence with her outpatient anticonvulsant medications, namely Keppra and oxcarbazepine, based on admission blood levels. -The patient will be restarted at her outpatient dosages of Keppra and oxcarbazepine. Both have been put on hold because of the overdose, and will now be safe to restart both medications. The patient is currently showing no signs of toxicity, and the elimination half-life of oxcarbazepine is such that given the patient's normal hepatic functioning we can give the patient her usual dosage of oxcarbazepine (and Keppra) for this evening. 09/15 - Pt reports she is no longer prescribed oxcarbazepine, so has refused offered doses - Will discontinue oxcarbazepine and continue only Keppra as prescribed Mental Health & Subst Abuse Tx Psychiatrist Name of Psychiatrist: KYLEIGH Bojorquez Psychiatrist's Date of Appointment with Psychiatrist: 09/26/19 Time of Appointment with Psychiatrist: 10:30 a.m. Therapist Name of Therapist: DAYTON Nowak Therapist's Date of Therapist Appointment: 09/21/19 Time of Therapist Appointment: 3:00 p.m. Medication Care Manager Name of Medication Care Manager: DAYTON Lobo Phone Number for Medication Care Manager: [phone] Case Management Appointment Comment: Follow up as needed for additional support Post Discharge Appointments Primary Care Physician Name Of Family Doctor: [facility] Primary Care Time of Appointment with PCP: Please follow up as needed Provider Appointment Comment: [place] [address] Neurologist Name of Neurologist: Reggie Forrest Neurologist's Neurology Appointment Comment: [address], [place] [address] Smoking Cessation Counseling Tobacco Cessation Medication Prescribed at Discharge: Not Applicable/Non-Smoker Other #1: Name of Aftercare Appointment: [facility] Phone Number of Aftercare Appointment: [phone] Date of Aftercare Appointment: 09/21/19 Time of Aftercare Appointment: 1:00 PM Aftercare Appointment Comment: Your Medication Care Manager Lea will call you at 1 PM Contact Information Discharge Discharge Address: [address], [address], [place] [address] Discharge Plan Discharge Items Patient Disposition: Home - Self-Care Reason For Visit: MDD Discharge Diagnosis: Depression; Suicidal Ideation Condition on Discharge: Good Health Concerns: Seizure d/o Activity: Resume your previous activity Non-emergency contact: Primary Care Provider, Psychiatrist and Therapist Call non-emergency contact if: you have any medication questions and your symptoms worsen Follow-up/Referrals: [facility] [Primary Care Provider] - Diet: Regular Addtl Attending Provider Instructions: As we discussed, you may benefit from gentle antidepressant treatment in addition to cognitive behavioral therapy. You were recommended low-dose SSRI treatment in the hospital which you declined. Please continue this discussion with Dr. Bojorquez, your outpatient psychiatrist. Pending Studies at Discharge: No Stand-Alone Forms: [facility] [employer], Smoking Cessation, Suicide Prevention Resources Medications and DC Order Prescriptions: Continued levetiracetam 500 mg tablet 1,500 mg PO BID RF: 0 Discontinued ibuprofen [Advil] 200 mg Tablet 400 mg PO Q6H PRN (Reason: Pain) RF: 0 Discharge Orders: Discharge Order (Routine); Ordered 09/19/19 Ordered By: Hieu Steve Admission Data Admit Date/Time: 09/15/19 04:17 Attending Provider: Murali Arreguin Admit Provider: Diane Bojorquez Primary Care Provider: [facility] Other Interventions: Discharge Summary Assessment (RN) Last Done: 09/19/19 12:14 PSY Interdisciplinary Discharge Planning Last Done: 09/19/19 12:13 Coding Level of Care Code 32112 D/C day mgmt > 30 min Diagnoses Depression with suicidal ideation F32.9; R45.851 Seizures R56.9 Time Spent (min) 45
== END 2019-09-19 11:44 | disposition home or self-care (01) | DRG 881 ==
LOC: ED 20:48 → 3S 09-15 04:17

== ENCOUNTER 2021-03-03 01:11 | Inpatient (IN) ==
--- NOTE | 2021-03-03 01:21 | Emergency Department Note ---
Impression & Plan Recurrent seizures ADMIT ED Provider Note HPI: The patient is a 25-year-old female with reported seizure disorder, presents the emergency department via EMS after a witnessed seizure. Patient was exhibiting some seizure-like activity for approximately 10 minutes prior to EMS arrival. This was witnessed by her roommate while the patient was in bed. Per EMS she was exhibiting tonic-clonic activity on their arrival, she was given a total of 10 of midazolam (5mg IO, 5mg IM) and then she was also given 4mg of IM Ativan. Per EMS the patient seizure-like activity stopped about 10 minutes after their arrival. On arrival here to the ED the patient is not responsive to sternal rub, she is protecting her airway and is saturating at 100% on 5 L nasal cannula oxygen. She is otherwise hemodynamically stable on arrival. ROS: -Neuro: Seizure-like activity *10 point review systems was conducted and is otherwise negative unless stated above *Outpatient medications and allergy history reviewed PE: General: Not responsive to verbal stimuli, postictal HEENT: Normocephalic, atraumatic, trachea midline Eyes: Pupils equal and reactive to light Pulmonary: Clear to auscultation bilaterally, no wheezing Cardio: Tachycardic rate and regular rhythm GI: Abdomen is soft, nontender : No suprapubic tenderness MSK: No evidence of trauma or malformation of the extremities, no edema Skin: No evidence of rash Neuro: Not fully alert, patient does ambulate all 4 extremities spontaneously at times Psychiatric: N/A monitor worker: - An order was placed for continuous cardiac monitoring - Patient was noted to be in sinus rhythm with rate of 105 EKG: Rate: 96 Rhythm: Normal sinus rhythm Intervals: Within normal limits ST changes: No ST elevation Time: 0116 Medical Decision Making: Patient presented to the emergency department with seizure-like activity that lasted approximately 20 to 25 minutes. Patient was given IV, IM, and IO benzodiazepines in the field and her seizure did break in the field. Upon review of her note she does have a longstanding history of seizures, she has had negative EEGs in the past however she does continue to follow with neurology and she has been continued on both Keppra and most currently Lamictal. Arrival here to the ED the patient appears postictal, also possibly related to benzodiazepines that she was given in the field. Her mentation improved throughout her stay here in the ED. Tachycardia down trended. Lab work returned and was largely unremarkable including a normal lactic acid. Patient was given IV fluids here in the ED. CT imaging of the head does not show any evidence of obvious intracranial bleeding or mass per my interpretation. Patient remains somewhat lethargic on my reevaluation although her mentation is greatly improved from arrival, I suspect this is a combination of possibly p ostictal state in the setting of receiving a large dose of benzodiazepines prior to arrival. She does not have any focal deficits. Unclear to me whether or not the patient has had an actual epileptic event or if this is a continuation of nonepileptic seizures. She has had several negative EEGs in the past for a variety of different seizure-like presentations. She does follow with [facility] neurology. Given that the patient is currently still being maintained on antiepileptics I cannot say for sure that this was a nonepileptic event I do think she should be admitted for observation and carina rology consultation in the morning. We do not have any neurology coverage until 7 AM for consult. I discussed the above findings with the on-call hospitalist for [facility], Dr. Parker, patient will be admitted to a telemetry bed for further management. COVID-19 testing was obtained here in the ED and is negative. * Diagnosis: Recurrent seizures * Disposition: Admission Diego Sahu, DO Emergency Medicine Past Med/Surg History Medical History Asthma Depression Exposure to TB Migraine On antiepileptic therapy Seizures Surgical History No pertinent past surgical history Family History Grandmother (Maternal) Hypertension Other No pertinent family history Social History Smoking Status: Unknown if ever smoked Hx Alcohol Use: No Hx Substance Use: No Preferred Language: P[place] Communication Ability: Effective Child Adolescent Care Required: No Beliefs That Will Affect Care: None (The patient reports that she is Denominational but is not currently attending any services.) Current Living Situation: Alone Current Living Situation Comment: student/apartment Feels Safe at Home: Yes Assistive Devices: None Allergies Allergies Allergy/AdvReac Type Severity Reaction Status Date / Time acetaminophen AdvReac Unknown sweats, Verified 03/03/21 01:59 chills Home Meds Home Medications Medication Instructions Recorded Confirmed levetiracetam 500 mg tablet 1,500 mg PO BID tab 02/28/19 03/03/21 norethindrone acetate 1.5 1 tab PO HS 11/20/19 03/03/21 mg-ethinyl estradiol 30 mcg tablet (Microgestin) amitriptyline 10 mg tablet 30 mg PO HS 03/03/21 03/03/21 lamotrigine 100 mg tablet 100 mg PO BID 03/03/21 03/03/21 lamotrigine 25 mg tablet 25 mg PO DAILY 03/03/21 03/03/21 Previous Rx's Medication Instructions Recorded hydroxyzine HCl 25 mg tablet 25 mg PO Q6H PRN #20 tab 02/10/21 Results & Data (ED) Vital Signs Vital Signs - 24 hr 03/03/21 01:40 03/03/21 01:49 03/03/21 02:15 Temperature 37.1 C Temperature Source Axillary Pulse Rate 102 H 94 H Pulse Rate from SpO2 Sensor 93 H Respiratory Rate 16 19 Blood Pressure 113/71 123/78 Blood Pressure Mean 85 93 Pulse Oximetry 98 99 100 Oxygen Delivery Method Nasal Cannula Nasal Cannula Oxygen Flow Rate 4 4 Sepsis Recent Fever Within 48 Hours No Sepsis New/Unexplained Change in Mental Status No Sepsis Action Taken by Nursing No Action Required 03/03/21 02:30 Temperature Temperature Source Pulse Rate 96 H Pulse Rate from SpO2 Sensor 96 H Respiratory Rate 21 Blood Pressure 130/81 Blood Pressure Mean 97 Pulse Oximetry 100 Oxygen Delivery Method Nasal Cannula Oxygen Flow Rate 4 Sepsis Recent Fever Within 48 Hours Sepsis New/Unexplained Change in Mental Status Sepsis Action Taken by Nursing Laboratory Data Result diagrams: 03/03/21 01:48 03/03/21 01:48 Lab Results 03/03/21 03/03/21 03/03/21 Range/Units 01:48 01:48 01:48 WBC 7.15 (4.8-10.8) K/uL RBC 4.15 L (4.2-5.4) M/uL Hgb 11.0 L (12.0-16.0) g/dL Hct 34.4 L (37-47) % MCV 82.9 (80-100) fL MCH 26.5 (25-34) pg MCHC 32.0 (32-36) g/dL RDW Std Deviation 34.7 L (36.4-46.3) fL RDW Coeff of [place] 11.4 L (11.5-14.5) % Plt Count 294 (130-400) K/uL MPV 10.4 (7.4-10.4) fL Immature Gran % (Auto) 0.1 % Neut % (Auto) 66.9 % Lymph % (Auto) 23.9 % [place] % (Auto) 6.6 % Eos % (Auto) 2.2 % Baso % (Auto) 0.3 % Neut # (Auto) 4.78 (1.4-6.5) K/uL Lymph # (Auto) 1.71 (1.2-3.4) K/uL [place] # (Auto) 0.47 (0.11-0.59) K/uL Eos # (Auto) 0.16 (0-0.5) K/uL Baso # (Auto) 0.02 (0-0.2) K/uL Immature Gran # (Auto) 0.01 (0.00-0.02) K/uL Sodium 138 (136-145) mmol/L Potassium 3.9 (3.5-5.1) mmol/L Chloride 106 (98-107) mmol/L Carbon Dioxide 27 (21-32) mmol/L Anion Gap 5.0 (3-11) BUN 12 (7-18) mg/dl Creatinine 0.72 (0.6-1.2) mg/dl Est Cr Clr Drug Dosing Not Reportable Est GFR ( Amer) 134.9 ml/min Est GFR (Non-Af Amer) 116.4 ml/min BUN/Creatinine Ratio 16.7 (10-20) Glucose 105 H (70-99) mg/dl Lactate (0.4-2.0) mmol/L Calcium 9.4 (8.5-10.1) mg/dl Total Bilirubin 0.1 L (0.2-1) mg/dl AST 11 L (15-37) U/L ALT 21 (12-78) Alkaline Phosphatase 87 (45-117) U/L Total Protein 7.9 (6.4-8.2) gm/dl Albumin 3.6 (3.4-5.0) gm/dl Globulin 4.3 H (2.5-4.0) gm/dl Albumin/Globulin Ratio 0.8 L (0.9-2) Ethyl Alcohol mg/dL < 3.0 (0-3) mg/dl SARS-CoV-2, RNA, NAAT (NEGATIVE) 03/03/21 03/03/21 Range/Units 01:58 02:19 WBC (4.8-10.8) K/uL RBC (4.2-5.4) M/uL Hgb (12.0-16.0) g/dL Hct (37-47) % MCV (80-100) fL MCH (25-34) pg MCHC (32-36) g/dL RDW Std Deviation (36.4-46.3) fL RDW Coeff of [place] (11.5-14.5) % Plt Count (130-400) K/uL MPV (7.4-10.4) fL Immature Gran % (Auto) % Neut % (Auto) % Lymph % (Auto) % [place] % (Auto) % Eos % (Auto) % Baso % (Auto) % Neut # (Auto) (1.4-6.5) K/uL Lymph # (Auto) (1.2-3.4) K/uL [place] # (Auto) (0.11-0.59) K/uL Eos # (Auto) (0-0.5) K/uL Baso # (Auto) (0-0.2) K/uL Immature Gran # (Auto) (0.00-0.02) K/uL Sodium (136-145) mmol/L Potassium (3.5-5.1) mmol/L Chloride (98-107) mmol/L Carbon Dioxide (21-32) mmol/L Anion Gap (3-11) BUN (7-18) mg/dl Creatinine (0.6-1.2) mg/dl Est Cr Clr Drug Dosing Est GFR ( Amer) ml/min Est GFR (Non-Af Amer) ml/min BUN/Creatinine Ratio (10-20) Glucose (70-99) mg/dl Lactate 1.4 (0.4-2.0) mmol/L Calcium (8.5-10.1) mg/dl Total Bilirubin (0.2-1) mg/dl AST (15-37) U/L ALT (12-78) Alkaline Phosphatase (45-117) U/L Total Protein (6.4-8.2) gm/dl Albumin (3.4-5.0) gm/dl Globulin (2.5-4.0) gm/dl Albumin/Globulin Ratio (0.9-2) Ethyl Alcohol mg/dL (0-3) mg/dl SARS-CoV-2, RNA, NAAT NEGATIVE (NEGATIVE) Administered Medications Discontinued Medications Sodium Chloride (Nss 1000ml) 1,000 mls @ 999 mls/hr IV .Q1H1M TERRANCE Stop: 03/03/21 02:30 Last Admin: 03/03/21 01:36 Dose: 999 mls/hr Documented by: [id number] Levetiracetam 2,000 mg/ Sodium (Chloride) 270 mls @ 999 mls/hr IV NOW STA Stop: 03/03/21 01:34 Last Infusion: 03/03/21 01:53 Dose: 0 mls/hr Documented by: [id number] Admin: 03/03/21 01:36 Dose: 999 mls/hr Documented by: [id number] Discharge Plan Visit Data Chief Complaint: Seizure Stated Complaint: SEIZURE ED Provider: Diego Sahu Discharge Problem: Recurrent seizures Forms Stand Alone Forms: [facility] Prescriptions Prescriptions: No Action levetiracetam 500 mg tablet 1,500 mg PO BID RF: 0 norethindrone ac-eth estradiol [Microgestin .08/25 (21)] 1.5-30 mg-mcg tablet 1 tab PO HS RF: 0 lamotrigine 25 mg tablet 25 mg PO DAILY RF: 0 amitriptyline 10 mg tablet 30 mg PO HS RF: 0 lamotrigine 100 mg tablet 100 mg PO BID RF: 0 hydroxyzine HCl 25 mg tablet 25 mg PO Q6H PRN (Reason: anxiety) Qty: 20 RF: 0 Referrals [facility]errals: [facility] [Primary Care Provider] -
[2021-03-03] MEDS ORDERED: SODIUM CHLORIDE 0.9% 1000ML 1,000 ML IV SCH ×2 (01:30→04:58)
[2021-03-03 02:11] LABS: Basophils # (auto) 0.02 K/uL (0-0.2); Basophils % (auto) 0.3 %; Eosinophils # (auto) 0.16 K/uL (0-0.5); Eosinophils % (auto) 2.2 %; Hematocrit (blood only) 34.4 % (37-47); Immature Granulocytes # (auto) 0.01 K/uL (0.00-0.02); Immature Granulocytes % (auto) 0.1 %; Lymphocytes # (auto) 1.71 K/uL (1.2-3.4); Lymphocytes % (auto) 23.9 %; Mean Corpuscular Hemoglobin 26.5 pg (25-34); Mean Corpuscular Volume 82.9 fL (80-100); Mean Platelet Volume 10.4 fL (7.4-10.4); Monocytes # (auto) 0.47 K/uL (0.11-0.59); Monocytes % (auto) 6.6 %; Neutrophils # (auto) 4.78 K/uL (1.4-6.5); Neutrophils % (auto) 66.9 %; Platelet Count 294 K/uL (130-400); RDW Coefficient of Variation 11.4 % (11.5-14.5); RDW Standard Deviation 34.7 fL (36.4-46.3); Red Blood Count 4.15 M/uL (4.2-5.4); White Blood Count 7.15 K/uL (4.8-10.8)
[2021-03-03 02:29] LABS: Alanine Aminotransferase 21 (12-78); Albumin Level 3.6 gm/dl (3.4-5.0); Aspartate Aminotransferase 11 U/L (15-37); BUN Creatinine Ratio 16.7 (10-20); Blood Urea Nitrogen 12 mg/dl (7-18); Calcium 9.4 mg/dl (8.5-10.1); Carbon Dioxide 27 mmol/L (21-32); Chloride 106 mmol/L (98-107); Est GFR (African American) 134.9 ml/min; Est GFR (Non-African American) 116.4 ml/min; Glucose 105 mg/dl (70-99); Potassium 3.9 mmol/L (3.5-5.1); Sodium 138 mmol/L (136-145)
[2021-03-03 02:31] LABS: Albumin Globulin Ratio 0.8 (0.9-2); Alkaline Phosphatase 87 U/L (45-117); Bilirubin,Total 0.1 mg/dl (0.2-1); Globulin 4.3 gm/dl (2.5-4.0); Total Protein 7.9 gm/dl (6.4-8.2)
--- NOTE | 2021-03-03 03:36 | History & Physical Report ---
Date of Service March 03, 2021 Assessment & Plan (1) Seizure-like activity: Plan: 25 yo F w/ pMHx. of depression, asthma and seizure like activity presents after approx. 20 minutes with Midazolam and Ativan Seizure like activity for approx. 20 minutes with multiple prior episodes unclear what precipitated episode, if it is related to medication compliance, no signs of infection, COVID negative - seizure precautions ordered - Keppra loaded - continue home AED me - checking kappa and lamotrigine level - Ativan 2mg IV available PRN for seizure activity - [facility] neurology consulted Depression - continue amitriptyline - PRN hydroxyzine available Diet: regular DVT: SCD's Code: full History of Present Illness Chief Complaint: seizure Primary Care Provider: [facility] Arnaldo Brown has a history of depression, asthma, and seizure activity presenting with seizure activity. She was found in her bed by her room mate having seizure like activity for about 10 minutes prior to emergency services arrived. She was having tonic-clonic activity per EMS and was given midazolam 10mg and 4 mg Ativan and activity broke after about 10 minutes of intervention. She was initially poorly responsive but has become more responsive in the ER. She has had several prior episodes of seizure like activity and is seen by [facility] neurology. She is on Keppra and Lamotrigine. Allergies Allergy/AdvReac Type Severity Reaction Status Date / Time acetaminophen AdvReac Unknown sweats, Verified 03/03/21 01:59 chills Home Medications Medication Instructions Recorded Confirmed Type levetiracetam 500 mg tablet 1,500 mg PO BID tab 02/28/19 03/03/21 History norethindrone acetate 1.5 1 tab PO HS 11/20/19 03/03/21 History mg-ethinyl estradiol 30 mcg tablet (Microgestin) hydroxyzine HCl 25 mg tablet 25 mg PO Q6H PRN #20 tab 02/10/21 03/03/21 Rx amitriptyline 10 mg tablet 30 mg PO HS 03/03/21 03/03/21 History lamotrigine 100 mg tablet 100 mg PO BID 03/03/21 03/03/21 History lamotrigine 25 mg tablet 25 mg PO DAILY 03/03/21 03/03/21 History Past Med/Surg History Medical History Asthma Depression Exposure to TB Migraine On antiepileptic therapy Seizures Surgical History No pertinent past surgical history Family History Grandmother (Maternal) Hypertension Other No pertinent family history Social History Smoking Status: Never smoker Second Hand Exposure: No; Do You Dip or Chew Tobacco: No; Tobacco Cessation Education Requested by Patient: No Hx Alcohol Use: No Hx Substance Use: No Preferred Language: Italian Communication Ability: Effective Filtration Operator Required: No Beliefs That Will Affect Care: None Current Living Situation: Other Current Living Situation Comment: apartment with roommates Other Information That Helps Us Care for You: No Feels Safe at Home: Yes Safety Concerns: Feels Safe At This Time Assistive Devices: None Review of Systems Review of Systems: Unobtainable due to reduced consciousness Physical Exam Constitutional: well developed, well nourished and + lethargic Eyes: PERRL Neck: normal visual inspection Respiratory: normal respiratory effort, lungs clear to auscultation Cardiovascular: RRR, no murmur, no edema Gastrointestinal (Abdomen): normal bowel sounds, soft, nontender, no hepatosplenomegaly Skin: no rashes, warm and dry Neurologic: - responding to verbal commands, not awake enough to comply with CN exam - able to squeeze my fingers strength intact bilaterally in the upper and lower extremity Psychiatric: Orientation: + not alert and + not oriented x 3 Eye Contact: + poor eye contact Results & Data Results & Data ([facility]) Vital Signs (Past 12 Hours) Vital Signs Temp Pulse Pulse Resp BP BP Pulse Ox 03/03/21 03:16 98 H 16 108/68 99 03/03/21 02:30 96 H 21 130/81 100 03/03/21 02:15 94 H 19 123/78 100 03/03/21 01:49 99 03/03/21 01:40 37.1 C 102 H 16 113/71 98 CBC Results Results Complete Blood Count Results: RBC 4.15 M/uL (4.2-5.4) L 03/03/21 WBC 7.15 K/uL (4.8-10.8) 03/03/21 Hgb 11.0 g/dL (12.0-16.0) L 03/03/21 Hct 34.4 % (37-47) L 03/03/21 Plt Count 294 K/uL (130-400) 03/03/21 Chemistry (BMP) Results BMP Results: Sodium 138 mmol/L (136-145) 03/03/21 Potassium 3.9 mmol/L (3.5-5.1) 03/03/21 Chloride 106 mmol/L (98-107) 03/03/21 BUN 12 mg/dl (7-18) 03/03/21 Creatinine 0.72 mg/dl (0.6-1.2) 03/03/21 Glucose 105 mg/dl (70-99) H 03/03/21 Code Status & VTE Plan VTE Prophylaxis Plan VTE Prophylaxis will be ordered: Yes Supervising Physician Co-Signing Physician Notes patient seen and examined, chart reviewed, case discussed with Dr. chaparro and I agree with the assessment and plan as above. In brief, 25yo female with seizure disorder on keppra and lamictal presenting with witnessed seizure activity - EMS concerned for status - patient administered Midazolam 5mg IO and 5mg IV then Ativan 4mg IV. Has had prior workup with Neurology Exam limited. Patient somnolent, arousable. Moans to questioning and able to f ollow simple commands PERRL, NC/AT, neck supple Heart - +S1/S2, regular, no m/r/g Lungs - CTA Abd - +BS, soft, ND Ext - No edema Neuro - moving all extremities to command Labs and images reviewed. Procalcitonin, Keppra and Lamictal levels pending Assessment/Plan - 25yo female with seizure disorder presenting with witnessed tonic-clonic activity, prolonged appx 25 minutes - administered benzos with termination of seizure activity. Loaded with Keppra in ER Electrolytes WNL Neuro consultation appreciated re: medication adjustment Remainder of plan as above Resident Activity Tracking Resident Involvement: Resident Care Provided Care Provided: Adult Hospital Medicine
[2021-03-03] MEDS ORDERED: hydrOXYzine HCl 25 MG TAB PO PRN (04:58)
[2021-03-03] MEDS ORDERED: LORazepam 2 MG/4 ML VIAL IV PRN (04:58)
[2021-03-03] MEDS ORDERED: POLYETHYLENE (MIRALAX) 17 GM PACK PO PRN (04:58)
--- NOTE | 2021-03-03 06:00 | Billing Data ---
Date of Service March 03, 2021 Coding Level of Care Code 01195 Initial Inpt Care Lvl 2
--- NOTE | 2021-03-03 06:56 | CT Scan Report ---
CT OF THE HEAD WITHOUT CONTRAST CLINICAL HISTORY: Seizure. COMPARISON STUDY: Head CT December 30, 2018. MRI of the brain June 19, 2020. CT DOSE: 537.48 mGy.cm TECHNIQUE: Helical axial images of the head were obtained without IV contrast. Automated exposure con trol was utilized for the study. A dose lowering technique was utilized adhering to the principles o f ALARA. FINDINGS: No acute intracranial hemorrhage, midline shift or mass effect is present. The ventricular system is unremarkable. The basal cisterns are patent. No extra-axial collections are present. There are no findings to suggest acute dural sinus thrombosis or acute territorial infarct. No significant calvarial abnormalities are present. Visualized portions of the sinuses and mastoid air cells are taran ar. IMPRESSION: No acute intracranial findings. ACT 112: Negative or not required by law. Electronically signed by: Kiko Estevez M.D. 03/03/2021 6:55 AM
[2021-03-03] MEDS: levETIRAcetam 500 MG TAB PO SCH ×2 (08:34→20:36)
[2021-03-03] MEDS ORDERED: lamoTRIgine 100 MG TAB PO SCH (09:00)
[2021-03-03] MEDS ORDERED: lamoTRIgine 25 MG TAB PO SCH (09:00)
--- NOTE | 2021-03-03 10:40 | Neurology Consultation ---
Date of Consultation March 03, 2021 Assessment & Plan (1) Seizure-like activity: 1. EEG no seizure focus 2. keppra 1500 mg q 12 hours 3. keppra 2 g given in ED 4. Lamictal 25 mg daily - verified current dosing will d/c 100 mg BID and add 25 mg BID starting tomorrow 5. levels of Keppra and lamictal ordered 6. no driving for 6 months from last seizure date, no heights, no bathing or swimming alone 7. another seizure in ED with additional ativan 2 mg given at 1400 8. will need transferred to have LT for seizure management - primary team contacted and transfer neurologist in [place] given Bruno Onken [phone] 9. repeat prolactin level ordered after last seizure- please draw (2) Recurrent seizures: Supervising Physician Co-Signing Physician Notes I have seen and discussed above patient with Dr Liliane Forrest, neurology. The patient is seen and examined. She is well-known to me. I have seen her for the last 2 or 3 years although did not make the initial diagnosis of epilepsy. She was known to the [facility] group previously but whether or not she may have been diagnosed living in [place] is unknown. She has never had an abnormal EEG in our system and in fact wore an ambulatory EEG for 3 days where she would have minor symptoms of twitching or feeling like she was going to have a seizure. The ambulatory EEG at that point was normal. She has had episodes of escalation of seizures which have settled down generally spontaneously. Previously attempted to add Lamictal to achieve seizure control but the patient was not compliant. I had always had some concerns regarding Keppra and the patient's mood. She has had hospitalization several years ago as a psychiatric inpatient. In general she typically has poor eye contact. We have had some unusual interactions with her via telemedicine where she would not answer her phone but if the phone was answered the person who answered indicated they did not know Speedwell Damion. Subsequently however the patient would return our call on that phone line. I think it is possible that she is socially fairly isolated This summer she went home to [facility] ran out of medicines and indicated that she had generalized seizures. She has been reporting increased increased seizures recently she is fearful to go out side as she is worried that someone will record her having a seizure and it will be embarrassing to her. Recently she is asked for accommodations for school because she is having difficulty completing her schoolwork because of seizures. About 3 weeks ago I added Lamictal. By report she should be taking 25 mg twice daily and she is currently taking 25 mg daily. By report she was said to have a 20-minute seizure at home for which she received large doses of benzodiazepines in the field. When she was admitted she was given 2 g of Keppra. She recalls that while at home she felt she was going to have a seizure she laid down called her roommate she indicates she was salivating and crying while awake and then next thing she remembered was being in the hospital. Today initially she was given 1500 mg of Keppra and 100 mg of Lamictal Of note she has an intertrochanteric IV which was placed on this admission I do not know if was placed by retail warehouse supervisor or in the hospital. She does not recall that being placed Her EEG this morning was normal Today she had a 3-minute seizure she rang the call reese for the nurse and came in and she was having difficulty talking she was frothing at the mouth "" and crying her eyes were opened. 1 nurse said the right side of her face was twitching the other nurse said she was smacking her lips and shaking her head mildly side to side she had minor shaking activity in the limbs was given 2 mg of Ativan with eventual cessation and then she fell asleep. She did not bite her tongue or wet herself On this admission her white count has been normal her CK was normal in spite of 20 minutes of seizure and her prolactin levels were normal. Her EEG this morning was normal Keppra level is a send out as is Lamictal . noncontrast CT of the head was unremarkable. The patient had an MRI of the brain with and without contrast in the spring which showed some nonspecific changes in the white matter On today's exam she is sleepy but arousable oriented x3 follows simple commands. Her neck is supple there is normal extraocular motility facial symmetry. No tongue lacerations are noted. Her strength is symmetric [id number] and [id number]-[id number] are normal. Her gait is wide-based and unsteady due to sedation with benzodiazepines Impression this patient by report had status epilepticus at home and has had a recurrent seizure since hospitalized. There is been a clinical question in mind whether or not this patient has pseudoseizures. I cannot exclude that she has an underlying seizure disorder and also has pseudoseizures. The absence of an elevation of prolactin and normal CK and normal white count in spite of what was said to be 20 minutes of generalized seizure activity would be unusual. I strongly recommend transfer to a tertiary care center for inpatient epilepsy monitoring At present in the absence of recurrent seizures recommend Keppra 1500 mg twice daily and changing her Lamictal back to the dose that she should have been on for week 3 of titration that is 25 mg twice daily Urgent medications which could be used if these were thought to be seizures could include Vimpat intravenously or Dilantin intravenously Additionally by way of thoroughness if a test has not been performed one should be. Liliane Forrest MD History of Present Illness Reason for Consultation: seizure Requesting Physician: Neto Warren MD Attending Physician: Neto Warren MD History of Present Illness Arnaldo is a 25 year old female who has a PMH- depression, asthma, and seizure activity presenting to the [facility] ED 03/03/2021 with seizure activity. She was found in her bed by her room mate having seizure like activity for about 10 minutes prior to emergency services arrived. She was having tonic-clonic activity per EMS and was given midazolam 10mg and 4 mg Ativan and activity broke after about 10 minutes of intervention. She was initially poorly responsive but has become more responsive in the ER. She had keppra 2 g load in the ED At approximately 1400 she had another seizure was given another 2 mg Ativan. She was suctioned and place on O2 for recovery measures. she is very lethargic but does answer questions appropriately. no biting of tongue or incontinence She does not remember what happened that she was brought her to the ED. She does know she is at [facility] ED. She does confirm she has been taking Keppra 1500 mg q 12 hours and Lamictal 25 mg daily , denies CP, SOB, abdominal pain. Allergies Allergy/AdvReac Type Severity Reaction Status Date / Time acetaminophen AdvReac Unknown sweats, Verified 03/03/21 01:59 chills Home Medications Medication Instructions Recorded Confirmed Type levetiracetam 500 mg tablet 1,500 mg PO BID tab 02/28/19 03/03/21 History norethindrone acetate 1.5 1 tab PO HS 11/20/19 03/03/21 History mg-ethinyl estradiol 30 mcg tablet (Microgestin) hydroxyzine HCl 25 mg tablet 25 mg PO Q6H PRN #20 tab 02/10/21 03/03/21 Rx amitriptyline 10 mg tablet 30 mg PO HS 03/03/21 03/03/21 History lamotrigine 100 mg tablet 100 mg PO BID 03/03/21 03/03/21 History lamotrigine 25 mg tablet 25 mg PO DAILY 03/03/21 03/03/21 History lamotrigine 25 mg tablet (Lamictal) 25 mg PO BID #0 tab 03/03/21 Rx polyethylene glycol 3350 17 gram 17 g PO DAILY PRN #0 ea 03/03/21 Rx oral powder packet (Miralax) Patient History Medical History Asthma Depression Exposure to TB Migraine On antiepileptic therapy Seizures Surgical History No pertinent past surgical history Family History Grandmother (Maternal) Hypertension Other No pertinent family history Social History Smoking Status: Never smoker Second Hand Exposure: No; Do You Dip or Chew Tobacco: No; Tobacco Cessation Education Requested by Patient: No Hx Alcohol Use: No Hx Substance Use: No Preferred Language: Amharic Communication Ability: Effective Registered Nurse Required: No Beliefs That Will Affect Care: None Current Living Situation: Other Current Living Situation Comment: apartment with roommates Other Information That Helps Us Care for You: No Feels Safe at Home: Yes Safety Concerns: Feels Safe At This Time Assistive Devices: None Review of Systems Review of Systems: All systems reviewed & are unremarkable except as noted in HPI & below Physical Exam Physical Exam: Physical Exam: Constitutional: BP 110/78 | Pulse 68 | Temp (Src) 96.4 (Tympanic) | Resp 12 | Wt 175 lbs 12.8 oz (79.742kg) | BMI 32.15 kg, appearance nourished, lethargic Ears, Nose, Mouth and Throat: mucous membranes moist, no injection and skin normal, eyes normal Cardiovascular: normal S-1 and S-2 and regular rate and rhythm Respiratory: clear to auscultation (CTA) and no rales, rhonchi or wheeze Musculoskeletal: no peripheral edema and good distal pulses Skin: no stigmata of neurocutaneous disease noted and normal and intact, left leg vivas disruption Eyes: non focal unable to concentrate for full exam pupils are equal reactive. NEUROLOGIC EXAMINATION: Mental status: Alert and interactive Oriented to [facility] 2020, February Oriented to person Speech fluent with no evidence of aphasia, but lethargic Cranial Nerves smile eye brow raise symmetric Reflexes: Deep tendon reflexes were symmetrical and graded 2/5. Sensory: intact to light cool touch Coordination: finger to nose Gait/Stance: Posture lying in bed Motor: Negative for pronator drift of out stretched arms with eyes closed. Strength: hand instructor extension work biceps triceps 5/5, hip flex 5/5 bilaterally plantar flex ext 5/5 Results & Data ([facility]) Vital Signs (Past 12 Hours) Vital Signs Temp Pulse Pulse Resp BP BP Pulse Ox 03/03/21 08:01 36.7 C 92 H 20 129/85 99 03/03/21 05:00 98 03/03/21 04:43 37.2 C 89 16 129/84 98 03/03/21 04:00 98 H 18 109/70 97 03/03/21 03:50 100 03/03/21 03:16 98 H 16 108/68 99 03/03/21 02:30 96 H 21 130/81 100 03/03/21 02:15 94 H 19 123/78 100 03/03/21 01:49 99 03/03/21 01:40 37.1 C 102 H 16 113/71 98 Laboratory Results Abnormal lab results 03/03/21 03/03/21 Range/Units 01:48 01:48 RBC 4.15 L (4.2-5.4) M/uL Hgb 11.0 L (12.0-16.0) g/dL Hct 34.4 L (37-47) % RDW Std Deviation 34.7 L (36.4-46.3) fL RDW Coeff of [place] 11.4 L (11.5-14.5) % Glucose 105 H (70-99) mg/dl Total Bilirubin 0.1 L (0.2-1) mg/dl AST 11 L (15-37) U/L Globulin 4.3 H (2.5-4.0) gm/dl Albumin/Globulin Ratio 0.8 L (0.9-2) Diagnostic Findings CT head-No acute intracranial hemorrhage, midline shift or mass effect is present. The ventricular system is unremarkable. The basal cisterns are patent. No extra-axial collections are present. There are no findings to suggest acute dural sinus thrombosis or acute territorial infarct. No significant calvarial abnormalities are present. Visualized portions of the sinuses and mastoid air cells are clear. MRI brain 06/19/2020-With the exception of a few small nonspecific foci of increased FLAIR signal within the white matter, the largest of which measures 2.5 mm, the study is within normal limits. This is a normal EEG during wakefulness without evidence for focal generalized encephalopathy without evidence for potentially epileptogenic activity
--- NOTE | 2021-03-03 11:53 | Hospitalist Progress Note ---
Date of Service March 03, 2021 Assessment & Plan (1) Seizure-like activity: Plan: 25 yo F w/ pMHx. of depression, asthma and seizure like activity presents after approx. 20 minutes with Midazolam and Ativan Seizure disorder with recurrent seizure: Currently somnolent from medication and possible postictal state. Neurology consultation appreciated. EEG is pending. Continue lamotrigine and Keppra for now. Intravenous Ativan as needed for breakthrough seizure activity. Depression - continue amitriptyline - PRN hydroxyzine available Diet: regular DVT: SCD's Code: full Plan: Disposition: Probable discharge tomorrow, March 04 Admission and Anticipated Discharge Date Admission Date: March 03, 2021 Subjective The patient is somnolent after receiving medications for seizure control and possibly postictal state. Neurology entry noted. EEG is pending. She remains on lamotrigine and Keppra. Review of Systems Review of Systems: Unable to obtain review of systems at this time Physical Exam Physical Exam: General-somnolent but arousable. HEENT-head atraumatic and normocephalic, TMs intact bilaterally, pupils equal and reactive to light, extraocular muscles intact Neck-no lymphadenopathy or thyromegaly, trachea midline Chest-clear to auscultation percussion. No rales wheezing or rhonchi Cardiac-regular rate and rhythm, normal S1 and S2, no murmurs Abdomen-normal bowel sounds, no hepatosplenomegaly Extremities-no cyanosis, clubbing, or edema Neuro-somnolent but arousable. Suspect postictal state and medication induced somnolence. Psych-unable to assess Results & Data Results & Data ([facility]) Vital Signs (Past 12 Hours) Vital Signs Temp Pulse Pulse Resp BP BP Pulse Ox 03/03/21 11:43 100 H 18 116/71 97 03/03/21 08:01 36.7 C 92 H 20 129/85 99 03/03/21 05:00 98 03/03/21 04:43 37.2 C 89 16 129/84 98 03/03/21 04:00 98 H 18 109/70 97 03/03/21 03:50 100 03/03/21 03:16 98 H 16 108/68 99 03/03/21 02:30 96 H 21 130/81 100 03/03/21 02:15 94 H 19 123/78 100 03/03/21 01:49 99 03/03/21 01:40 37.1 C 102 H 16 113/71 98 Laboratory Results 03/03/21 01:48 03/03/21 01:48 PG Care Time/CCT Total # of Minutes Spent Total Time Spent with Patient: Total time spent is greater than 50% in coordination of care (as documented) at patient's floor/unit and/or counseling patient: Coding Level of Care Code 52373 Subseq Hosp Care Lvl 3 Diagnoses Seizure-like activity R56.9
--- NOTE | 2021-03-03 13:26 | Electroencephalogram ---
EEG Procedure Note Date of Service March 03, 2021 Start / End Times Start Time: 10 5 7 End Time: 1117 Referring Physician Liliane Forrest MD History Protracted seizure-like activity now sedated with Ativan and V Home Medication List Medication Instructions Recorded Confirmed Type levetiracetam 500 mg tablet 1,500 mg PO BID tab 02/28/19 03/03/21 History norethindrone acetate 1.5 1 tab PO HS 11/20/19 03/03/21 History mg-ethinyl estradiol 30 mcg tablet (Microgestin) hydroxyzine HCl 25 mg tablet 25 mg PO Q6H PRN #20 tab 02/10/21 03/03/21 Rx amitriptyline 10 mg tablet 30 mg PO HS 03/03/21 03/03/21 History lamotrigine 100 mg tablet 100 mg PO BID 03/03/21 03/03/21 History lamotrigine 25 mg tablet 25 mg PO DAILY 03/03/21 03/03/21 History Inpatient Medication List Lamotrigine (Lamotrigine 100 Mg Tab) 100 mg PO BID [facility] Stop: 04/02/21 08:59 Last Admin: 03/03/21 08:34 Dose: 100 mg Documented by: [id number] Levetiracetam (Levetiracetam 500 Mg Tab) 1,500 mg PO BID TERRANCE Stop: 04/02/21 08:59 Last Admin: 03/03/21 08:34 Dose: 1,500 mg Documented by: [id number] Discontinued Medications Sodium Chloride (Nss 1000ml) 1,000 mls @ 999 mls/hr IV .Q1H1M TERRANCE Stop: 03/03/21 02:30 Last Infusion: 03/03/21 03:20 Dose: 0 mls/hr Documented by: [id number] Admin: 03/03/21 01:36 Dose: 999 mls/hr Documented by: [id number] Levetiracetam 2,000 mg/ Sodium (Chloride) 270 mls @ 999 mls/hr IV NOW STA Stop: 03/03/21 01:34 Last Infusion: 03/03/21 01:53 Dose: 0 mls/hr Documented by: [id number] Admin: 03/03/21 01:36 Dose: 999 mls/hr Documented by: [id number] Sodium Chloride (Nss 1000ml) 1,000 mls @ 125 mls/hr IV .Q8H TERRANCE Stop: 03/03/21 12:57 Last Admin: 03/03/21 05:00 Dose: 125 mls/hr Documented by: [id number] Description This is a 21 electrode EEG with a single channel dedicated to limited EKG. The electrodes were placed in accordance with the International 10-20 syste This EEG was done as a bedside recording is of good technical quality with few muscle movement artifacts but by large "interpretable. Patient appears to be drowsy but EEG does not reflect significant drowsy activity. Photic stimulation was performed. During what appears to be electroencephalographic wakefulness there is evidence for background alpha rhythm of 210 Hz maximal frequency of up to 30 V maximum amplitude which is symmetrical in maximum posterior head regions. Polymorphic mid frequency to upper frequency as well as theta activity seen in the central regions in a symmetrical fashion and beta activity seen bifrontally Photic stimulation was a minimal driving response No potentially epileptiform discharges are noted Interpretation This is a normal EEG during what appears to be electroencephalographic wakefulness Clinical Correlation This is a normal EEG during wakefulness without evidence for focal generalized encephalopathy without evidence for potentially epileptogenic activity Erik Garcia MD
--- NOTE | 2021-03-03 15:55 | Electrocardiogram Report ---
Test Reason : Blood Pressure : / mmHG Vent. Rate : 096 BPM Atrial Rate : 096 BPM P-R Int : 134 ms QRS Dur : 086 ms QT Int : 352 ms P-R-T Axes : 069 048 042 degrees QTc Int : 444 ms Normal sinus rhythm Normal ECG When compared with ECG of 20-FEB-2021 16:43, No significant change was found Confirmed by Rodrigo Tucker ([id number]) on 03/03/2021 3:55:15 PM Referred By: REFERRED SELF Confirmed By:Rodrigo Tucker
--- NOTE | 2021-03-03 16:22 | Hospitalist Progress Note ---
Date of Service March 03, 2021 Assessment & Plan Admission and Anticipated Discharge Date Admission Date: March 03, 2021 Subjective The patient continues to have intermittent seizure activity requiring intra venous Ativan for control. Neurology has requested transfer to [facility] for continuous EEG monitoring. I contacted Dr. Bruno Ramesh who accepted the patient in transfer. Bed availability is a problem however. She will remain here until a bed is available. Results & Data Results & Data ([facility]) Vital Signs (Past 12 Hours) Vital Signs Temp Pulse Pulse Resp BP BP Pulse Ox 03/03/21 16:03 111 H 21 100 03/03/21 15:45 116 H 21 131/87 100 03/03/21 11:43 100 H 18 116/71 97 03/03/21 08:01 36.7 C 92 H 20 129/85 99 03/03/21 05:00 98 03/03/21 04:43 37.2 C 89 16 129/84 98 PG Care Time/CCT Total # of Minutes Spent Total Time Spent with Patient: Total time spent is greater than 50% in coordination of care (as documented) at patient's floor/unit and/or counseling patient: Coding Level of Care Code None
--- NOTE | 2021-03-03 19:29 | Progress Notes ---
INTERIM NOTE DATE OF SERVICE: 03/03/2021 I have reviewed Ms. Brown's blood work and her prolactin level is not elevated after this last seizure. In fact, it is lower than it had been in the morning, likely reflecting diurnal variation. The patient has been accepted by [facility] for epilepsy monitoring. It is unclear when a bed will be available. Although I have a suspicion of pseudoseizure, I cannot be entirely sure without EEG monitoring. I am also concerned about the large doses of benzodiazepines that the patient has appropriately received. She is sedated and unsteady. I would recommend and I have communicated to Dr. Warren that we reducethe dose of Ativan to 1 mg p.r.n. seizure and only give it if the seizure is lasting 3 or more minutes. If she has another seizure, in an effort to minimize benzodiazepines and their inherent potential respiratory suppression, I would recommend loading with Vimpat 200 mg IV and then follow that by Vimpat 100 mg IV or p.o. twice a day. The AL interval on her baseline EKG appears normal. If the patient has another seizure, please notify me. Liliane Forrest MD Job ID: [id number] [facility]
[2021-03-03] MEDS ORDERED: LACOSAMIDE 200 MG in SODIUM CHLORIDE 0.9% 50 ML IV STA (19:54)
[2021-03-03] MEDS: AMITRIPTYLINE HCL 10 MG TAB PO SCH (20:36)
[2021-03-03 21:14] LABS: Pregnancy Test, Urine Negative (Negative)
--- NOTE | 2021-03-04 03:02 | Communication Note ---
Date of Service: March 04, 2021 Subjective: Nursing notified me overnight that the patient would like to leave. In talking to the patient she was concerned about a final group presentation which is on Wednesday, patient was somewhat confused and thought today was Wednesday despite it being Wednesday. She had a friend bring her a phone and computer. Objective: Alert and oriented somewhat flat affect A/P: Encouraged patient to stay at least until the morning to create a plan with neurology and her hospitalist, ideally transfer to [facility] for EEG monitoring. She was okay with this plan at this time. I did bring up that she can talk to disability services at the [facility] and have the testing moved as her health is important and she is at risk of harm if she were to leave without a plan in place. Seizure like activity - Vimpat was started with loading dose per Neurology and PO BID dosing going forward - no lab monitoring per pharmacy
[2021-03-04] MEDS: LACOSAMIDE 50 MG TABLET PO SCH ×2 (07:23→20:57)
[2021-03-04] MEDS: lamoTRIgine 25 MG TAB PO SCH ×2 (07:23→20:57)
[2021-03-04] MEDS: levETIRAcetam 500 MG TAB PO SCH ×2 (07:23→20:57)
--- NOTE | 2021-03-04 11:09 | Hospitalist Progress Note ---
Date of Service March 04, 2021 Assessment & Plan (1) Seizure-like activity: Plan: 25 yo F w/ pMHx. of depression, asthma and seizure like activity presents after approx. 20 minutes with Midazolam and Ativan Seizure disorder with recurrent seizure: Much more alert today, March 04. Neurology has recommended transfer to [facility] for continuous EEG krysta montes. I have contacted neurology at their facility and they have accepted the patient. We are waiting on bed availability for transfer. Vimpat has been added to lamotrigine and Keppra. Intravenous Ativan as needed for breakthrough seizure activity. Depression - continue amitriptyline - PRN hydroxyzine available Diet: regular DVT: SCD's Code: full Plan: Disposition: Transfer to [facility] when bed is available. Admission and Anticipated Discharge Date Admission Date: March 03, 2021 Subjective The patient is now alert and oriented. I explained to her that she will be transferred to [facility] at the request of neurology for continued care. She understands. Review of Systems Review of Systems: Constitutional-no fever or chills ENT-no blurred vision, no double vision, no epistaxis, no sore throat Respiratory-no cough, no wheezing, no shortness of breath Cardiac-no palpitations, no chest pain, no syncope GI-no nausea, vomiting, diarrhea, melena, hematochezia -no urinary retention, no urinary incontinence, no dysuria, no hematuria Musculoskeletal-no joint pain, no muscle tenderness Skin-no bruising, no rashes, no pruritus Neuro-no isolated weakness, no paresthesia, no weakness Psych-no depression, no anxiety Physical Exam Physical Exam: General-alert and oriented x3, no fevers, no chills HEENT-head atraumatic and normocephalic, TMs intact bilaterally, pupils equal and reactive to light, extraocular muscles intact Neck-no lymphadenopathy or thyromegaly, trachea midline Chest-clear to auscultation percussion. No rales wheezing or rhonchi Cardiac-regular rate and rhythm, normal S1 and S2, no murmurs Abdomen-normal bowel sounds, nontender, no hepatosplenomegaly Extremities-no cyanosis, clubbing, or edema Neuro-cranial nerves II through XII intact, motor and sensory function within normal limits, strength symmetrical 5/5, no focal deficits Psych-normal affect, normal mood Results & Data Results & Data ([facility]) Vital Signs (Past 12 Hours) Vital Signs Temp Pulse Resp BP Pulse Ox 03/04/21 07:41 100 H 14 124/76 03/04/21 02:27 36.8 C 98 H 20 96 03/03/21 23:14 37 C 103 H 20 131/92 96 Laboratory Results 03/03/21 01:48 03/03/21 01:48 PG Care Time/CCT Total # of Minutes Spent Total Time Spent with Patient: Total time spent is greater than 50% in coordination of care (as documented) at patient's floor/unit and/or counseling patient: Coding Level of Care Code 08903 Subseq Hosp Care Lvl 3 Diagnoses Seizure-like activity R56.9
--- NOTE | 2021-03-04 13:13 | Hospitalist Progress Note ---
Date of Service March 04, 2021 Assessment & Plan (1) Seizure-like activity: Plan: 25 yo F w/ pMHx. of depression, asthma and seizure like activity presents after approx. 20 minutes with Midazolam and Ativan Seizure disorder with recurrent seizure: Much more alert today, March 04. Neurology has recommended transfer to [facility] for continuous EEG monitoring. I have contacted neurology at their facility and they have accepted the patient. We are waiting on bed availability for transfer. Vimpat has been added to lamotrigine and Keppra. Intravenous Ativan as needed for breakthrough seizure activity. If she no longer requires transfer to [place], she probably can go home. Depression - continue amitriptyline - PRN hydroxyzine available Diet: regular DVT: SCD's Code: full Plan: Disposition: Transfer to [facility] when bed is available if this is still needed. We will contact neurology for their opinion. Otherwise, discharge to home Admission and Anticipated Discharge Date Admission Date: March 03, 2021 Subjective The patient is alert and oriented today. Vimpat has been started along with Keppra and Lamictal. She appears to be doing well. I do not know if she still requires transfer to [facility] or not. Will contact neurology to see if this is still needed. Otherwise she can go home on Keppra, Lamictal, and Vimpat. Review of Systems Review of Systems: Constitutional-no fever or chills ENT-no blurred vision, no double vision, no epistaxis, no sore throat Respiratory-no cough, no wheezing, no shortness of breath Cardiac-no palpitations, no chest pain, no syncope GI-no nausea, vomiting, diarrhea, melena, hematochezia -no urinary retention, no urinary incontinence, no dysuria, no hematuria Musculoskeletal-no joint pain, no muscle tenderness Skin-no bruising, no rashes, no pruritus Neuro-no isolated weakness, no paresthesia, no weakness Psych-no depression, no anxiety Physical Exam Physical Exam: General-alert and oriented x3, no fevers, no chills HEENT-head atraumatic and normocephalic, TMs intact bilaterally, pupils equal and reactive to light, extraocular muscles intact Neck-no lymphadenopathy or thyromegaly, trachea midline Chest-clear to auscultation percussion. No rales wheezing or rhonchi Cardiac-regular rate and rhythm, normal S1 and S2, no murmurs Abdomen-normal bowel sounds, nontender, no hepatosplenomegaly Extremities-no cyanosis, clubbing, or edema Neuro-cranial nerves II through XII intact, motor and sensory function within normal limits, strength symmetrical , no focal deficits Psych-normal affect, normal mood Results & Data Results & Data ([facility]) Vital Signs (Past 12 Hours) Vital Signs Temp Pulse Resp BP Pulse Ox 03/04/21 11:43 118 H 12 126/87 95 03/04/21 07:41 100 H 14 124/76 03/04/21 02:27 36.8 C 98 H 20 96 PG Care Time/CCT Total # of Minutes Spent Total Time Spent with Patient: Total time spent is greater than 50% in coordination of care (as documented) at patient's floor/unit and/or counseling patient: Coding Level of Care Code 35613 Subseq Hosp Care Lvl 3 Diagnoses Seizure-like activity R56.9
--- NOTE | 2021-03-04 14:35 | Discharge Summary ---
Date of Service March 04, 2021 Admission HPI Per Admitting Provider Arnaldo Brown has a history of depression, asthma, and seizure activity presenting with seizure activity. She was found in her bed by her room mate having seizure like activity for about 10 minutes prior to emergency services arrived. She was having tonic-clonic activity per EMS and was given midazolam 10mg and 4 mg Ativan and activity broke after about 10 minutes of intervention. She was initially poorly responsive but has become more responsive in the ER. She has had several prior episodes of seizure like activity and is seen by [facility] neurology. She is on Keppra and Lamotrigine. Principal Diagnosis Generalized seizure with history of seizure disorder Discharge Exam General-alert and oriented x3, no fevers, no chills HEENT-head atraumatic and normocephalic, TMs intact bilaterally, pupils equal and reactive to light, extraocular muscles intact Neck-no lymphadenopathy or thyromegaly, trachea midline Chest-clear to auscultation percussion. No rales wheezing or rhonchi Cardiac-regular rate and rhythm, normal S1 and S2, no murmurs Abdomen-normal bowel sounds, nontender, no hepatosplenomegaly Extremities-no cyanosis, clubbing, or edema Neuro-cranial nerves II through XII intact, motor and sensory function within normal limits, strength symmetrical , no focal deficits Psych-normal affect, normal mood Discharge Data Allergies Allergy/AdvReac Type Severity Reaction Status Date / Time acetaminophen AdvReac Unknown sweats, Verified 03/03/21 01:59 chills Consultations 03/03/21 03:11 ED Decision to Admit Stat 03/03/21 04:58 Consult Neurology Routine Ordered Studies 03/03/21 01:17 CT head/brain wo con Urgent Hospital Course (1) Seizure-like activity: 25 yo F w/ pMHx. of depression, asthma and seizure like activity presents after approx. 20 minutes with Midazolam and Ativan Seizure disorder with recurrent seizure: Much more alert today, March 04. Neurology has recommended transfer to [facility] for continuous EEG monitoring. I have contacted neurology at their facility and they have accepted the patient. We are waiting on bed availability for transfer. Vimpat has been added to lamotrigine and Keppra. Intravenous Ativan as needed for breakthrough seizure activity. If she no longer requires transfer to [place], she probably can go home. Depression - continue amitriptyline - PRN hydroxyzine available Diet: regular DVT: SCD's Code: full Disposition: Transfer to [facility] when bed is available if this is still needed. We will contact neurology for their opinion. Otherwise, discharge to home Total Time Total Time Spent Total Time Spent (In Minutes): 35 Discharge Plan Discharge Items Patient Disposition: Transfer Acute Care Hospital Reason For Visit: SEIZURE Discharge Diagnosis: recurrent seizures Activity: Resume your previous activity Non-emergency contact: Primary Care Provider Call non-emergency contact if: you have any medication questions Follow-up/Referrals: [facility] [Primary Care Provider] - Diet: Regular Diet Comment: currently NPO Addtl Attending Provider Instructions: You are being transferred to [facility] to neurologist Dr. Bruno Ramesh for further care Pending Studies at Discharge: No Stand-Alone Forms: My [facility] Skilled Items Patient informed of condition?: Yes DNR: No Discharge Level of Care: Other Communicable Disease: No Discharge Prognosis: Stable Lines: None Urinary Catheter: No Medications and DC Order Prescriptions: New polyethylene glycol 3350 [Miralax] 17 gram Powder In Packet 17 g PO DAILY PRNQty: 0 RF: 0 lamotrigine [Lamictal] 25 mg Tablet 25 mg PO BID Qty: 0 RF: 0 Vimpat 50 mg Tablet 100 mg PO BID Qty: 30 RF: 0 Continued levetiracetam 500 mg tablet 1,500 mg PO BID RF: 0 norethindrone ac-eth estradiol [Microgestin 1.5 ()] 1.5-30 mg-mcg tablet 1 tab PO HS RF: 0 amitriptyline 10 mg tablet 30 mg PO HS RF: 0 lamotrigine 100 mg tablet 100 mg PO BID RF: 0 hydroxyzine HCl 25 mg tablet 25 mg PO Q6H PRN (Reason: anxiety) Qty: 20 RF: 0 Changed lamotrigine 25 mg tablet 25 mg PO BID Qty: 0 RF: 0 Discharge Orders: Discharge Order (Routine); Ordered 03/03/21 Ordered By: Neto Warren Admission Data Admit Date/Time: 03/03/21 03:25 Attending Provider: Neto Warren Admit Provider: Catrachito Hall Primary Care Provider: [facility] Other Providers: Veronica Parkerer,Liliane Coding Diagnoses Seizure-like activity R56.9
--- NOTE | 2021-03-04 15:17 | Discharge Summary ---
Date of Service March 04, 2021 Principal Diagnosis Status epilepticus Discharge Exam General-alert and oriented x3, no fevers, no chills HEENT-head atraumatic and normocephalic, TMs intact bilaterally, pupils equal and reactive to light, extraocular muscles intact Neck-no lymphadenopathy or thyromegaly, trachea midline Chest-clear to auscultation percussion. No rales wheezing or rhonchi Cardiac-regular rate and rhythm, normal S1 and S2, no murmurs Abdomen-normal bowel sounds, nontender, no hepatosplenomegaly Extremities-no cyanosis, clubbing, or edema Neuro-cranial nerves II through XII intact, motor and sensory function within normal limits, strength symmetrical 5/5, no focal deficits Psych-normal affect, normal mood Discharge Data Allergies Allergy/AdvReac Type Severity Reaction Status Date / Time acetaminophen AdvReac Unknown sweats, Verified 03/03/21 01:59 chills Consultations 03/03/21 03:11 ED Decision to Admit Stat 03/03/21 04:58 Consult Neurology Routine Ordered Studies 03/03/21 01:17 CT head/brain wo con Urgent Hospital Course (1) Seizure-like activity: 25 yo F w/ pMHx. of depression, asthma and seizure like activity presents after approx. 20 minutes with Midazolam and Ativan Seizure disorder with recurrent seizure: Much more alert today, March 04. Neurology has recommended transfer to a tertiary care center, either [facility] or [facility], whoever can accept the patient first. She is much improved, and the other alternative is for her to simply go home and follow-up with her neurologist as an outpatient. Vimpat has been added to lamotrigine and Keppra. Intravenous Ativan as needed for breakthrough seizure activity. If she no longer requires transfer to [place] or [place], she probably can go home and follow-up as an outpatient. Depression - continue amitriptyline - PRN hydroxyzine available Diet: regular DVT: SCD's Code: full Disposition: Transfer to tertiary care center if bed is available or she may possibly go home and follow-up as an outpatient. Total Time Total Time Spent Total Time Spent (In Minutes): 35 Discharge Plan Discharge Items Patient Disposition: Transfer Acute Care Hospital Reason For Visit: SEIZURE Discharge Diagnosis: recurrent seizures Activity: Resume your previous activity Non-emergency contact: Primary Care Provider Call non-emergency contact if: you have any medication questions Follow-up/Referrals: [facility] [Primary Care Provider] - Diet: Regular Diet Comment: currently NPO Addtl Attending Provider Instructions: You are being transferred to [facility] to neurologist Dr. Bruno Ramesh for further care Pending Studies at Discharge: No Stand-Alone Forms: My [facility] Skilled Items Patient informed of condition?: Yes DNR: No Discharge Level of Care: Other Communicable Disease: No Discharge Prognosis: Stable Lines: None Urinary Catheter: No Medications and DC Order Prescriptions: New polyethylene glycol 3350 [Miralax] 17 gram Powder In Packet 17 g PO DAILY PRNQty: 0 RF: 0 lamotrigine [Lamictal] 25 mg Tablet 25 mg PO BID Qty: 0 RF: 0 Vimpat 50 mg Tablet 100 mg PO BID Qty: 30 RF: 0 Continued levetiracetam 500 mg tablet 1,500 mg PO BID RF: 0 norethindrone ac-eth estradiol [Microgestin ()] 1.5-30 mg-mcg tablet 1 tab PO HS RF: 0 amitriptyline 10 mg tablet 30 mg PO HS RF: 0 lamotrigine 100 mg tablet 100 mg PO BID RF: 0 hydroxyzine HCl 25 mg tablet 25 mg PO Q6H PRN (Reason: anxiety) Qty: 20 RF: 0 Changed lamotrigine 25 mg tablet 25 mg PO BID Qty: 0 RF: 0 Discharge Orders: Discharge Order (Routine); Ordered 03/03/21 Ordered By: Neto Warren Admission Data Admit Date/Time: 03/03/21 03:25 Attending Provider: Neto Warren Admit Provider: Catrachito Hall Primary Care Provider: [facility] Other Providers: Veronica Parker ; Liliane Forrest Coding Level of Care Code D/C DAY MANAGEMENT >30 MINS Diagnoses Seizure-like activity R56.9
--- NOTE | 2021-03-04 15:36 | Neurology Progress Note ---
Date of Service March 04, 2021 Assessment & Plan (1) Seizure-like activity: Plan: 1. EEG no seizure focus 2. keppra 1500 mg q 12 hours 3. keppra 2 g given in ED 4. Lamictal 25 mg BID daily and will need to escalate as outpatient as previously ordered. 5. levels of Keppra and lamictal ordered 6. no driving for 6 months from last seizure date, no heights, no bathing or swimming alone 7. vimpat 100 mg BID was added 8. will need transferred to have [facility]TM for seizure management - primary team contacted and transfer neurologist in [place] Ramesh [phone] was willing to accept but no beds no beds at [facility] is willing to see her as an outpatient and will arrange for follow up 9. repeated prolactin level is normal range (2) Recurrent seizures: Admission and Anticipated Discharge Date Admission Date: March 03, 2021 Supervising Physician Co-Signing Physician Notes I have seen and discussed above patient with Dr Liliane Forrest, neurology. PT seen and examined. she is awake and alert, nml eom, rendon, facial symmetry. Full strength, nml FNF, HS. Gait is unremarkable. No sz overnight but vimpat started.[facility] unable to take pt for several days as they are on diversion. Spoke to Dr Alana Smith, epileptologist [facility]. They do not have a bed but the dept which is in conjunction with [place] (where pt has prev seen Dr Fitch) is able to see her early next week and arrange admission to the Epilepsy monitoring unit within the next few weeks. Pt is planning on going to [facility] on Wednesday. I have advised her not to do so because if she has a sz or status it may be many hours until she could get medical assistant dermatology. Status epilepticus could be fatal. Pt is aware and choses to travel and see epilepsy after Apr 04. My office will contact the tertiary care center. pt should be discharged on Keppra 1500 mg twice a day lamictal 25 mg twice a day, following the dose escalation and vimpat 100 mg bid. vimpat needs a prior auth. pls send her home with as many days supply as hospital will provide and give script. Dr Smith indicates pt should be able to get a 30 d supply without prior auth. pt should call our office if this is not the case. Ok to dc from my perspective Liliane Forrest MD Sagrario Mcintosh is a 25 year old female who has a PMH- depression, asthma, and seizure activity presenting to the [facility] ED 03/03/2021 with seizure activity. She was found in her bed by her room mate having seizure like activity for about 10 minutes prior to emergency services arrived. She was having tonic-clonic activity per EMS and was given midazolam 10mg and 4 mg Ativan and activity broke after about 10 minutes of intervention. She was initially poorly responsive but has become more responsive in the ER. She had keppra 2 g load in the ED At approximately 1400 she had another seizure was given another 2 mg Ativan. She was suctioned and place on O2 for recovery measures. she is very lethargic but does answer questions appropriately. no biting of tongue or incontinence She does not remember what happened that she was brought her to the ED but she is feeling much better today. She does know she is at [facility] and wants to go home. She does confirm she has been taking Keppra 1500 mg q 12 hours and Lamictal 25 mg daily. She was started on Vimpat 100 mg BID and wants to know how that will help her seizures. She is not a lethargic today because Ativan has not been given. denies CP, SOB, abdominal pain. Review of Systems Review of Systems: All systems reviewed & are unremarkable except as noted in HPI & below Physical Exam Physical Exam: Physical Exam: Constitutional: appearance nourished, awake and alert Ears, Nose, Mouth and Throat: mucous membranes moist, no injection and skin normal, eyes normal Cardiovascular: normal S-1 and S-2 and regular rate and rhythm Respiratory: clear to auscultation (CTA) and no rales, rhonchi or wheeze Musculoskeletal: no peripheral edema and good distal pulses Skin: no stigmata of neurocutaneous disease noted and normal and intact Eyes: non focal unable to concentrate for full exam pupils are equal reactive. NEUROLOGIC EXAMINATION: Mental status: Alert and interactive Oriented to [facility] February Oriented to person Speech fluent with no evidence of aphasia Cranial Nerves smile eye brow raise symmetric Reflexes: Deep tendon reflexes were symmetrical and graded 2/5. Sensory: intact to light cool touch Coordination: finger to nose no bi pass Gait/Stance: Posture sitting up in bed Motor: Negative for pronator drift of out stretched arms with eyes closed. Strength: hand bar pointer biceps triceps 5/5, hip flex 5/5 bilaterally plantar flex ext 5/5 Results & Data ([facility]) Vital Signs (Past 12 Hours) Vital Signs Pulse Resp BP Pulse Ox 03/04/21 11:43 118 H 12 126/87 95 03/04/21 07:41 100 H 14 124/76 Laboratory Results no new labs Diagnostic Findings no new imaging
[2021-03-04] MEDS ORDERED: IBUPROFEN 600 MG TAB PO PRN (17:46)
--- NOTE | 2021-03-04 18:54 | Communication Note ---
Date of Service: March 04, 2021 called by nursing due to transfer paperwork not yet completed, but [facility] called with bed availability. d/w nursing and chart reviewed- given neuro consult note making need for transfer unclear, called dr heaton -- she noted that her note/plan was due to the fact that she did not believe tertiary bed would be available and that pt would likely leave the hospitall w outpt f/u. however, noted that with the patient's situation, home/outpt was a far suboptimal plan and transfer for tertiary was very much preferred - just did not believe it would be possible in a reasonable time frame - but given tertiary being able to take her tonight, this would be by far the preferred course of action. paperwork completed in cross coverage, ACLS due to possible need for benzodiazepine en route should pt have seizure while in transit.
[2021-03-04] MEDS: AMITRIPTYLINE HCL 10 MG TAB PO SCH (20:56)
[2021-03-05] MEDS: lamoTRIgine 25 MG TAB PO SCH (08:27)
[2021-03-05] MEDS: levETIRAcetam 500 MG TAB PO SCH (08:28)
[2021-03-05] MEDS: LACOSAMIDE 50 MG TABLET PO SCH (10:56)
[2021-03-05 15:39] VITALS: PULSE 107; TEMP 98.8; O2SAT 97
--- NOTE | 2021-03-05 15:42 | Discharge Summary ---
Date of Service March 05, 2021 Principal Diagnosis seizure Discharge Exam The patient is awake, alert and oriented 3, well developed and well nourished, normocephalic and atraumatic, lying in bed and in no acute distress. HEENT--PERRL, EOMI, mucous membranes and oropharynx mildly dry Neck--supple. No JVD. No bruits. Thyroid normal, trachea midline, no adenopathy. Heart--normal S1 and S2. No murmurs, rubs or gallops. Lungs--clear bilaterally, no respiratory distress, no accessory muscle use. Abdomen--normal bowel sounds and soft. Mild epigastric and left sided abdominal pain Extremities--no cyanosis or clubbing. No edema. Dermatologic--normal skin turgor, normal color, no abnormal lymph nodes, no rash. Neurologic--cranial nerves II through XII grossly intact. Rheumatologic--normal range of motion. Psychiatric--normal affect. Discharge Data Allergies Allergy/AdvReac Type Severity Reaction Status Date / Time acetaminophen AdvReac Unknown sweats, Verified 03/03/21 01:59 chills Consultations 03/03/21 03:11 ED Decision to Admit Stat 03/03/21 04:58 Consult Neurology Routine Ordered Studies 03/03/21 01:17 CT head/brain wo con Urgent Hospital Course (1) Seizure-like activity: 25 yo F w/ pMHx. of depression, asthma and seizure like activity presents after approx. 20 minutes with Midazolam and Ativan Seizure disorder with recurrent seizure: Much more alert today, March 04. Neurology has recommended transfer to a tertiary care center, either [facility] or [facility], whoever can accept the patient first. She is much improved, and the other alternative is for her to simply go home and follow-up with her neurologist as an outpatient. Vimpat has been added to lamotrigine and Keppra. Intravenous Ativan as needed for breakthrough seizure activity. If she no longer requires transfer to [place] or [place], she probably can go home and follow-up as an outpatient. Depression - continue amitriptyline - PRN hydroxyzine available Diet: regular DVT: SCD's Code: full Patient declined transfer to tertiary facility. She wants to go back to her home country of [facility]. The risk was explained to her and she still wanted to be discharged, so she can catch her flight for 03/07/21. She was started on Vimpat and lamotrigine and also asked to continue her keppra. she was asked not to drive for 6 months and to establish care with a neurologist as soon as she gets to [facility] Total Time Total Time Spent Total Time Spent (In Minutes): 35 min Discharge Plan Discharge Items Patient Disposition: Home - Home Health Services Reason For Visit: SEIZURE Discharge Diagnosis: recurrent seizures Activity: Resume your previous activity Activity Comment: Please do not drive any vehicle for 6 months Non-emergency contact: Primary Care Provider Call non-emergency contact if: you have any medication questions Follow-up/Referrals: [place],[facility] [Primary Care Provider] - Diet: Regular Addtl Attending Provider Instructions: Please make appointment to establish care with a neurologist as soon as you get to [facility] Pending Studies at Discharge: No Stand-Alone Forms: My [employer], Smoking Cessation Medications and DC Order Prescriptions: New polyethylene glycol 3350 [Miralax] 17 gram Powder In Packet 17 g PO DAILY PRNQty: 0 RF: 0 lamotrigine [Lamictal] 25 mg Tablet 25 mg PO BID Qty: 0 RF: 0 Vimpat 50 mg Tablet 100 mg PO BID Qty: 30 RF: 0 Continued levetiracetam 500 mg tablet 1,500 mg PO BID RF: 0 norethindrone ac-eth estradiol [Microgestin 1.08/25 ()] 1.5-30 mg-mcg tablet 1 tab PO HS RF: 0 amitriptyline 10 mg tablet 30 mg PO HS RF: 0 lamotrigine 100 mg tablet 100 mg PO BID RF: 0 hydroxyzine HCl 25 mg tablet 25 mg PO Q6H PRN (Reason: anxiety) Qty: 20 RF: 0 Changed lamotrigine 25 mg tablet 25 mg PO BID Qty: 0 RF: 0 Discharge Orders: Discharge Order (Routine); Ordered 03/03/21 Ordered By: Neto Warren Admission Data Admit Date/Time: 03/03/21 03:25 Attending Provider: Brianna Browne Admit Provider: Catrachito Hall Primary Care Provider: [facility] Other Providers: Veronica Parker Kathleen Coding Level of Care Code D/C DAY MANAGEMENT >30 MINS Diagnoses Seizure-like activity R56.9
[2021-03-05 16:18] VITALS: BP 123/74
--- NOTE | 2021-03-05 17:08 | Progress Notes ---
DATE OF SERVICE: 03/05/2021 I am seeing Arnaldo in followup of frequent seizures. Fortunately, she has not had any seizures for 36 hours. [facility] had a bed last night to admit her for epilepsy monitoring, but the patient declined to be admitted. She stayed overnight, so issues related to medications could be solved prior to her discharge. By report, social work was able to obtain or ensure a 1-month supply of Vimpat. This patient plans on flying to [facility] on Wednesday and staying there until 04/04. This is against my medical advice. This patient has seizures and possibly pseudoseizures. True epilepsy cannot be excluded This patient has had many recent seizures and if she is on an international flight, she is at risk to have an event and require medical therapy, which would be many hours away. In spite of this, the patient understands. She should be discharged on Keppra 1500 mg twice a day, Lamictal 25 mg twice a day following the dose escalation as previously described and Vimpat 100 mg twice a day. Kiersten in conjunction with [place] epileptologists were willing to see her next week and potentially arrange an elective admission. I did explain to them that the patient might refuse to do so. My office will attempt to make an appointment for Arnaldo after 04/04. We will sign off at present. Job ID: [id number] [facility]Cherry
[2021-03-06 03:28] LABS: Lamictal(Lamotrigine) 9.9 mcg/mL (4.0-18.0); Levetiracetam Keppra > 80.0 mcg/mL (12.0-46.0)
== END 2021-03-05 17:15 | disposition home or self-care (01) | DRG 101 ==
LOC: ED 01:11 → SUATTDRO 03:25 → EDINP 03:25 → 1E 04:57